=== PATIENT | male | born 1945 | race Caucasian/White ===

== ENCOUNTER 2019-06-30 15:45 | Inpatient (IN) ==
--- NOTE | 2019-06-30 17:42 | Emergency Department Note ---
Skin/Abscess/FB HPI - General Chief complaint: Skin/Abscess/Foreign Body Stated complaint: infected diabetic foot ulcer Time Seen by Provider: 06/30/19 16:44 Source: patient Mode of arrival: ambulatory Limitations: no limitations - History of Present Illness HPI Narrative: This patient has a large ulcer on his right foot and Dr. mina choi would like him admitted to the hospital so he can take him to the operating room for further debridement. Patient has no other specific complaints. - Related Data Home Medications Medication Instructions Recorded Confirmed atorvastatin 20 mg tablet 20 mg PO .COMPLEX 02/08/16 06/30/19 blood sugar diagnostic 1 dose .ROUTE .MEDSUPPLY 02/08/16 06/30/19 apixaban 2.5 mg tablet 2.5 mg PO BID 30 Days #60 tab 02/15/17 06/30/19 Mv-Mn/FA/D3/Lycopene/Lut/Coq10 1 each PO DAILY 07/18/17 06/30/19 [Daily Multivitamin Capsule] Vitamin B Complex [Super B-50 1 each PO DAILY 07/18/17 06/30/19 Complex] metoprolol tartrate 100 mg tablet 100 mg PO BID tab 05/01/19 06/30/19 Aspirin [Adult Low Dose Aspirin EC] 81 mg PO DAILY 06/30/19 06/30/19 Benzonatate 200 mg PO TID 06/30/19 06/30/19 Cyanocobalamin (Vitamin B-12) 50 mcg PO DAILY 06/30/19 06/30/19 [Vitamin B-12] Pantoprazole Sodium [Protonix] 20 mg PO DAILY 06/30/19 06/30/19 Previous Rx's Medication Instructions Recorded glipizide 10 mg tablet 10 mg PO QDAY #30 tab 07/10/18 furosemide 20 mg tablet See Rx Instructions .ROUTE 01/24/19 .COMPLEX #180 tab Allergies Allergy/AdvReac Type Severity Reaction Status Date / Time No Known Drug Allergies Allergy Verified 06/30/19 15:49 Review of Systems All systems ED: reviewed and negative except as stated. 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) Mitral valve stenosis and regurgitation (Chronic) Chronic combined systolic and diastolic CHF, NYHA class 2 (Chronic) Anemia due to stage 5 chronic kidney disease treated with darbepoetin (Chronic) CKD stage G5/A3, GFR <15 and albumin creatinine ratio >300 mg/g (Chronic) CKD stage G4/A3, GFR 15-29 and albumin creatinine ratio >300 mg/g (Chronic) Lung nodule (Chronic) Aspiration into airway (Chronic) Pharyngeal dysphagia (Chronic) GERD (gastroesophageal reflux disease) (Chronic) Chronic cough (Resolved) Anemia in stage 4 chronic kidney disease (Chronic) Secondary hyperparathyroidism of renal origin (Chronic) Numbness (Chronic) Change in nail appearance (Chronic) Adenomatous colon polyp (Chronic) TIA (transient ischemic attack) (Chronic) Shingles (Chronic) FDC (current) use of anticoagulants (Chronic) History of bleeding ulcers (Chronic) Hepatocellular carcinoma (Chronic) Mitral stenosis (Chronic) AV block, 1st degree (Chronic) Ventricular bigeminy (Chronic) Bradycardia (Chronic) Coronary artery disease (Chronic) Severe obesity (Chronic) Cirrhosis (Chronic) Chronic atrial fibrillation (Chronic) Diabetic foot ulcer (Chronic) Hammer toe of right foot (Chronic) Hammer toe of left foot (Chronic) Ridged nails (Chronic) Changes in skin texture (Chronic) Edema, unspecified (Chronic) Chronic ulcer of great toe of right foot with necrosis of bone (Chronic) Type 2 diabetes mellitus with foot ulcer (Chronic) PAD (peripheral artery disease) (Chronic) Personal history of nicotine dependence (Chronic) FDC (current) use of oral hypoglycemic drugs (Chronic) Type 2 diabetes mellitus with diabetic peripheral angiopathy without gangrene (Chronic) Corns and callosities (Chronic) Tinea unguium (Chronic) Obese (Chronic) Ambulates with cane (Chronic) Bruising (Chronic) Intermittent claudication (Chronic) Dyspnea on exertion (Chronic) Loss of taste (Chronic) Myocardial infarction (Chronic) Hypertension (Chronic) Hypercholesterolemia (Chronic) Peripheral vascular disease (Chronic) Non-healing ulcer (Chronic) Osteomyelitis (Chronic) Numbness in feet (Chronic) Burning sensation of feet (Chronic) Paresthesia (Chronic) Muscle cramps (Chronic) Leg pain (Chronic) History of acute myocardial infarction (Chronic) Wound abscess (Chronic) Wound cellulitis (Chronic) Chronic kidney disease, stage 3 (Chronic) Preventative health care (Chronic) Diabetic peripheral neuropathy (Chronic) DM (diabetes mellitus), type 2, uncontrolled w/neurologic complication (Chronic) Diabetes mellitus with renal manifestation (Chronic) CKD stage 4 due to type 2 diabetes mellitus (Chronic) Diabetes mellitus with peripheral circulatory disorder (Chronic) Claudication (Chronic) Hypertensive CKD (chronic kidney disease) (Chronic) Paroxysmal atrial fibrillation (Chronic) Hyperlipidemia (Chronic) Severe obesity (Chronic) Nocturia (Chronic) Screening PSA (prostate specific antigen) (Chronic) History of tobacco use (Chronic) Dystrophic nail (Chronic) Onychomycosis (Chronic) Past Surgical History (Last Reviewed 06/05/19 @ 09:59 by Tori Bravo RN) History of surgery (Acute) History of amputation of toe (Chronic) History of bilateral cataract extraction (Chronic) History of colonoscopy (Chronic 05/17/10) History of coronary artery bypass graft (Chronic) History of detached retina repair (Chronic) History of open heart surgery (Chronic ~1980) History of oral surgery (Chronic) History of tonsillectomy (Chronic) Family History (Last Reviewed 06/05/19 @ 09:59 by Tori Bravo RN) Mother Heart disease Kidney disease COPD (chronic obstructive pulmonary disease) Father Diabetes Medical history: Reports: DM, other Surgical history ED: Reports: non-contributory - Social History smoking status: Former smoker Physical Exam Patient's right lower lateral foot shows a large ulcer. Limitations: no limitations General appearance: alert Head: atraumatic Eye: Present: normal appearance ENT: Present: normal exam Neck: Present: normal inspection Chest: Present: normal inspection Respiratory: Present: normal lung sounds bilaterally Cardiovascular: Present: regular rate, normal rhythm, normal heart sounds Rectal: Absent: deferred Neurological: Present: alert Psychiatric: Present: normal affect Skin: Present: warm, dry Course Vital Signs Temperature 96.8 F L 06/30/19 15:46 Pulse Rate 81 06/30/19 15:46 Respiratory Rate 20 06/30/19 15:46 Blood Pressure 131/75 06/30/19 15:46 Pulse Oximetry (%) 99 06/30/19 15:46 Temperature 96.8 F L 06/30/19 15:46 Pulse Rate 81 06/30/19 15:46 Respiratory Rate 20 06/30/19 15:46 Blood Pressure 131/75 06/30/19 15:46 Pulse Oximetry (%) 99 06/30/19 15:46 Skin/Abscess/Foreign Body - MDM Narrative Medical decision making narrative: I discussed case with Dr. Lenz and Dr. mina choi and the patient will be admitted to the hospital. - Lab Data Lab results reviewed: Yes I reviewed the patient's lab results. Result diagrams: 06/30/19 15:33 06/30/19 15:33 Lab Results 06/30/19 06/30/19 Range/Units 15:33 15:33 WBC 10.0 (4.50-11.00) K/mcL RBC 3.35 L (4.63-6.08) M/mcL Hgb 10.5 L (13.7-17.5) g/dL Hct 31.4 L (40.1-51.0) % MCV 93.7 (80.0-100.0) fL MCH 31.3 (26.0-34.0) pg MCHC 33.4 (31.0-36.0) g/dL RDW 13.6 (11.5-14.5) % Plt Count 324 (140-440) K/mcL MPV 9.7 (7.4-10.4) fL Gran % 80.8 H (38.0-78.0) % Lymph % (Auto) 6.5 L (15.5-49.0) % [place] % (Auto) 9.7 (1.0-12.0) % Eos % (Auto) 2.5 (0.0-7.0) % Baso % (Auto) 0.5 (0.0-2.0) % Gran # 8.11 H (1.80-8.00) K/mcL Lymph # (Auto) 0.65 L (1.50-4.80) K/mcL [place] # (Auto) 0.97 H (0.10-0.90) K/mcL Eos # (Auto) 0.25 (0.00-0.70) K/mcL Baso # (Auto) 0.05 (0.00-0.30) K/mcL Sodium 134 (133-145) mmol/L Potassium 4.2 (3.3-5.1) mmol/L Chloride 104 (96-108) mmol/L Carbon Dioxide 15 L (22-30) mmol/L Anion Gap 15.0 (8-16) BUN 97 H (8-23) mg/dl Creatinine 4.8 H (0.7-1.2) mg/dl GFR Calculation 11 Glucose 124 H (70-105) mg/dL Calcium 8.8 (8.6-10.4) mg/dl Total Bilirubin 0.6 (0.0-1.0) mg/dL AST 41 H (0-37) U/l ALT 27 (0-40) U/l Alkaline Phosphatase 169 H (39-117) U/L Total Protein 7.8 (5.9-8.4) gm/dL Albumin 3.5 (3.2-5.2) gm/dL Globulin 4.3 H (2.2-3.7) gm/dL Albumin/Globulin Ratio 0.8 L (1.0-2.3) Disposition 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) Referrals: Laura Walton MD [Primary Care Provider] - Time of Disposition: 19:33
[2019-06-30] MEDS: LACTATED RINGERS 1,000 ML IV SCH (17:51)
[2019-06-30 18:31] LABS: Basophils # (Auto) 0.05 K/mcL (0.00-0.30); Basophils % (Auto) 0.5 % (0.0-2.0); Eosinophils # (Auto) 0.25 K/mcL (0.00-0.70); Eosinophils % (Auto) 2.5 % (0.0-7.0); Granulocytes % (Auto) 80.8 % (38.0-78.0); Hematocrit 31.4 % (40.1-51.0); Hemoglobin 10.5 g/dL (13.7-17.5); Lymphocytes # (Auto) 0.65 K/mcL (1.50-4.80); Lymphocytes % (Auto) 6.5 % (15.5-49.0); Mean Cell Volume 93.7 fL (80.0-100.0); Mean Corpuscular HGB Conc 33.4 g/dL (31.0-36.0); Mean Platelet Volume 9.7 fL (7.4-10.4); Monocytes # (Auto) 0.97 K/mcL (0.10-0.90); Monocytes % (Auto) 9.7 % (1.0-12.0); Platelet Count 324 K/mcL (140-440); RBC 3.35 M/mcL (4.63-6.08); Red Cell Distribution Width 13.6 % (11.5-14.5)
[2019-06-30 18:54] LABS: ALT/SGPT 27 U/l (0-40); AST/SGOT 41 U/l (0-37); Albumin 3.5 gm/dL (3.2-5.2); Albumin/Globulin Ratio 0.8 (1.0-2.3); Alkaline Phosphatase 169 U/L (39-117); Bilirubin,Total 0.6 mg/dL (0.0-1.0); Blood Urea Nitrogen 97 mg/dl (8-23); Calcium 8.8 mg/dl (8.6-10.4); Carbon Dioxide 15 mmol/L (22-30); Chloride 104 mmol/L (96-108); Globulin 4.3 gm/dL (2.2-3.7); Glomerular Filtration Rate 11; Glucose 124 mg/dL (70-105)
[2019-06-30] MEDS ORDERED: PIPERACILLIN SODIUM/TAZOBACTAM 3.375 GM in DEXTROSE 5% IN WATER 50 ML IV ONE (19:32)
[2019-06-30] MEDS ORDERED: VANCOMYCIN 1,500 MG in 0.9 % SODIUM CHLORIDE 500 ML IV ONE (19:32)
--- NOTE | 2019-06-30 19:44 | Internal Med History&Physical ---
Medical - H&P: [facility] Patient information: Note initiated : 06/30/19 at 7:35 pm Service Date, if different from initiated Date: [] Patient: Carlton Cerda 73 y/o M admitted on for infected diabetic foot ulcer. Chief Complaint: [] Chief complaint: Right foot History of present illness: Mr. Cerda is a 73 year old M with a history of CABG/CAD/CKD stage IV and diabetic neuropathy who presents to the ER after being directed from wound care office with worsening right foot cellulitis/ulcer and need for operative intervention. Initial work-up in the ER did not show any evidence of sepsis however in the setting of worsening cellulitis/expanding ulceration hospitalist service was consulted for admission and consultation with wound care physician Dr. Casanova At the time evaluation patient is accompanied with his Mary. He was able to answer most of the questions. He denies shaking chills, fever, worsening pain but endorses to worsening wound over the last few days. He denies recent trauma. His blood sugars have been around 200. He denies missing medications. Review of systems A 10 point review system was performed and is negative except for discussed above Medical - H&P: PMH Medical history: CKD stage G4/A3, GFR 15-29 and albumin creatinine ratio >300 mg/g (Chronic) Doubt this is diabetic due to good hemoglobin A1c values over the years Could be secondary membranous GN in association with his adenocarcinoma of the liver And then any of the other common causes of nephrotic range proteinuria including amyloidosis, decompensated congestive heart failure, RPGN etc. use of apixaban as an anticoagulant makes renal biopsy difficult logistically. Lung nodule (Chronic) Aspiration into airway (Chronic) Pharyngeal dysphagia (Chronic) GERD (gastroesophageal reflux disease) (Chronic) Chronic cough (Resolved) Anemia in stage 4 chronic kidney disease (Chronic) Serial hemoglobin and hematocrit Iron studies Start JULIAN therapy when and if hemoglobin less than 10 given his cardiac status Secondary hyperparathyroidism of renal origin (Chronic) Monitor PTH on calcitriol 0.25 ug per day Numbness (Chronic) Change in nail appearance (Chronic) Adenomatous colon polyp (Chronic) TIA (transient ischemic attack) (Chronic) Shingles (Chronic) medical terminologist (current) use of anticoagulants (Chronic) History of bleeding ulcers (Chronic) Hepatocellular carcinoma (Chronic) Mitral stenosis (Chronic) AV block, 1st degree (Chronic) Ventricular bigeminy (Chronic) Bradycardia (Chronic) Coronary artery disease (Chronic) Severe obesity (Chronic) Cirrhosis (Chronic) Chronic atrial fibrillation (Chronic) Diabetic foot ulcer (Chronic) Right Hammer toe of right foot (Chronic) Hammer toe of left foot (Chronic) Ridged nails (Chronic) Changes in skin texture (Chronic) Edema, unspecified (Chronic) Chronic ulcer of great toe of right foot with necrosis of bone (Chronic) Type 2 diabetes mellitus with foot ulcer (Chronic) PAD (peripheral artery disease) (Chronic) Personal history of nicotine dependence (Chronic) intermediate (current) use of oral hypoglycemic drugs (Chronic) Type 2 diabetes mellitus with diabetic peripheral angiopathy without gangrene (Chronic) Corns and callosities (Chronic) Tinea unguium (Chronic) Obese (Chronic) Ambulates with cane (Chronic) Bruising (Chronic) Intermittent claudication (Chronic) Dyspnea on exertion (Chronic) Loss of taste (Chronic) Myocardial infarction (Chronic) Hypertension (Chronic) Hypercholesterolemia (Chronic) Peripheral vascular disease (Chronic) Non-healing ulcer (Chronic) Osteomyelitis (Chronic) Right 3rd Toe Numbness in feet (Chronic) sometimes Burning sensation of feet (Chronic) occasionally Paresthesia (Chronic) Muscle cramps (Chronic) Leg pain (Chronic) History of acute myocardial infarction (Chronic) Wound abscess (Chronic) Wound cellulitis (Chronic) Chronic kidney disease, stage 3 (Chronic) Preventative health care (Chronic) Diabetic peripheral neuropathy (Chronic) DM (diabetes mellitus), type 2, uncontrolled w/neurologic complication (Chronic) and vascular complications Diabetes mellitus with renal manifestation (Chronic) CKD stage 4 due to type 2 diabetes mellitus (Chronic) Slow progression to a GFR of 11 cc/min. He has no symptoms and at this point did not want to discuss renal replacement therapy I suspect he has a year to go before we have to institute dialysis so I did not push the issue Diabetes mellitus with peripheral circulatory disorder (Chronic) Claudication (Chronic) Hypertensive CKD (chronic kidney disease) (Chronic) Paroxysmal atrial fibrillation (Chronic) Hyperlipidemia (Chronic) Severe obesity (Chronic) Nocturia (Chronic) Screening PSA (prostate specific antigen) (Chronic) History of tobacco use (Chronic) Dystrophic nail (Chronic) Onychomycosis (Chronic) Surgical History History of surgery (Acute) per patient liver cancer 2017 History of amputation of toe (Chronic) Right 2nd Toe History of bilateral cataract extraction (Chronic) History of colonoscopy (Chronic 05/17/10) History of coronary artery bypass graft (Chronic) History of detached retina repair (Chronic) History of open heart surgery (Chronic ~1980) Bypass History of oral surgery (Chronic) History of tonsillectomy (Chronic) Family History Mother Heart disease Kidney disease COPD (chronic obstructive pulmonary disease) Father Diabetes Social History marital status: smoking status: Former smoker smoking status start date: 04/16/06 smoking status stop date: 04/16/78 alcohol intake frequency: a few times a week substance use type: does not use Medical - H&P: Meds Home Medications Medication Instructions Recorded Confirmed Type atorvastatin 20 mg tablet 20 mg PO .COMPLEX 02/08/16 06/30/19 History blood sugar diagnostic 1 dose .ROUTE .MEDSUPPLY 02/08/16 06/30/19 History apixaban 2.5 mg tablet 2.5 mg PO BID 30 Days #60 tab 02/15/17 06/30/19 History Mv-Mn/FA/D3/Lycopene/Lut/Coq10 1 each PO DAILY 07/18/17 06/30/19 History [Daily Multivitamin Capsule] Vitamin B Complex [Super B-50 1 each PO DAILY 07/18/17 06/30/19 History Complex] glipizide 10 mg tablet 10 mg PO QDAY #30 tab 07/10/18 06/30/19 Rx furosemide 20 mg tablet See Rx Instructions .ROUTE 01/24/19 06/30/19 Rx .COMPLEX #180 tab metoprolol tartrate 100 mg tablet 100 mg PO BID tab 05/01/19 06/30/19 History Aspirin [Adult Low Dose Aspirin EC] 81 mg PO DAILY 06/30/19 06/30/19 History Benzonatate 200 mg PO TID 06/30/19 06/30/19 History Cyanocobalamin (Vitamin B-12) 50 mcg PO DAILY 06/30/19 06/30/19 History [Vitamin B-12] Pantoprazole Sodium [Protonix] 20 mg PO DAILY 06/30/19 06/30/19 History Allergies Allergy/AdvReac Type Severity Reaction Status Date / Time No Known Drug Allergies Allergy Verified 06/30/19 15:49 Medical - H&P: Exam - Constitutional Vitals: Temp Pulse Resp BP Pulse Ox 96.8 F L 81 20 131/75 99 06/30/19 15:46 06/30/19 15:46 06/30/19 15:46 06/30/19 15:46 06/30/19 15:46 General appearance: obese Exam: Alert oriented Head normocephalic Oral cavity dry No ear nose discharge Neck no hepatopathy S1-S2 irregular Diminished breath sounds bases Abdomen soft nontender Lower extremity no cyanosis clubbing, right foot ulceration with extensive skin and soft tissue necrosis involving wound base extending to toes. Pictures documented in chart Psych alert cooperative Neuro nonfocal Medical - H&P: Reslt - Labs CBC & Chem 7: 07/01/19 05:45 07/01/19 05:45 Labs: Short CBC 06/30/19 Range/Units 15:33 WBC 10.0 (4.50-11.00) K/mcL Hgb 10.5 L (13.7-17.5) g/dL Hct 31.4 L (40.1-51.0) % Plt Count 324 (140-440) K/mcL BMP 06/30/19 15:33 Sodium 134 Potassium 4.2 Chloride 104 Carbon Dioxide 15 L BUN 97 H Creatinine 4.8 H Glucose 124 H Calcium 8.8 Liver Function 06/30/19 Range/Units 15:33 Total Bilirubin 0.6 (0.0-1.0) mg/dL AST 41 H (0-37) U/l ALT 27 (0-40) U/l Alkaline Phosphatase 169 H (39-117) U/L Albumin 3.5 (3.2-5.2) gm/dL Medical - H&P: A/P (1) Diabetic foot ulcer Problem details: Right Current visit: Yes Status: Chronic * Diabetic foot ulcer with necrosis and cellulitis-wound care consulted. Initiate broad antibiotic coverage. Further work-up for vascular insufficiency as per wound care physician. Will likely undergo debridement in the next 48 hours. 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 * Preoperative risk evaluation-based on [employer] [place] [employer] risk stratification patient would be a very high risk operative candidate with mortality of approximately 20% in the setting of history of prior CAD/CABG/stage IV CKD and underlying diabetes. This was discussed with Carlton who understands the risk and willing to proceed with surgery. Surgery and anesthesia specific risks will be addressed by individual care providers * Stage IV CKD-patient recently discontinued renal replacement treatment. Managed by Dr. High nephrology * History of diabetes mellitus continue basal prandial insulin/CC diet * Chronic atrial fibrillation currently rate controlled. On anticoagulation for CVA prophylaxis. * Diabetic neuropathy/peripheral vascular disease with recurrent diabetic foot ulceration. * Hyperlipidemia on statin * DNR Plan * Inpatient admission * Wound care physician consult * Broad antibiotic coverage * Wound Cultures * Monitor renal function
--- NOTE | 2019-06-30 20:03 | General Surgery Consult Note ---
History of Present Illness Patient information: Note initiated : 06/30/19 at 8:00 pm Service Date, if different from initiated Date: [] Patient: Carlton Cerda 73 y/o M admitted on for infected diabetic foot ulcer. Chief Complaint: [] Consult date: 06/30/19 Requesting physician: Nish Kahn (Sepsis, Infected DFU Rt foot) History of present illness: 73/M Admitted via ER with CSSSI Right foot DFU [place] 4, under 5th toe. Patient is established with wound care services and is well known to the staff at [facility]. High risk patient with multiple comorbidities, Will need OR debridement after INITIAL work up, IV antibiotics and TESS study along with physical therapy consult and counseling to patient for NWB and off loading ( Roll about scooter versus wheelchair ) of RIGHT foot. Patient was seen in wound care clinic this morning. There was deterioration of his wound and interval change with extensive skin and soft tissue necrosis of the wound base and spread to surrounding toes. He was referred to ER and later admitted to Medr floor for preoperative work up and clearance. Medications and Allergies Home Medications Medication Instructions Recorded Confirmed Type atorvastatin 20 mg tablet 20 mg PO .COMPLEX 02/08/16 06/30/19 History blood sugar diagnostic 1 dose .ROUTE .MEDSUPPLY 02/08/16 06/30/19 History apixaban 2.5 mg tablet 2.5 mg PO BID 30 Days #60 tab 02/15/17 06/30/19 History Mv-Mn/FA/D3/Lycopene/Lut/Coq10 1 each PO DAILY 07/18/17 06/30/19 History [Daily Multivitamin Capsule] Vitamin B Complex [Super B-50 1 each PO DAILY 07/18/17 06/30/19 History Complex] glipizide 10 mg tablet 10 mg PO QDAY #30 tab 07/10/18 06/30/19 Rx furosemide 20 mg tablet See Rx Instructions .ROUTE 01/24/19 06/30/19 Rx .COMPLEX #180 tab metoprolol tartrate 100 mg tablet 100 mg PO BID tab 05/01/19 06/30/19 History Aspirin [Adult Low Dose Aspirin EC] 81 mg PO DAILY 06/30/19 06/30/19 History Benzonatate 200 mg PO TID 06/30/19 06/30/19 History Cyanocobalamin (Vitamin B-12) 50 mcg PO DAILY 06/30/19 06/30/19 History [Vitamin B-12] Pantoprazole Sodium [Protonix] 20 mg PO DAILY 06/30/19 06/30/19 History Allergies Allergy/AdvReac Type Severity Reaction Status Date / Time No Known Drug Allergies Allergy Verified 06/30/19 15:49 Exam Temp Pulse Resp BP Pulse Ox 96.8 F L 81 20 131/75 99 06/30/19 15:46 06/30/19 15:46 06/30/19 15:46 06/30/19 15:46 06/30/19 15:46 - General physical appearance well developed, well nourished, no pain - Eyes PERRL - ENT normal pinna, normal mucosa, no congestion - Head Head exam IM: Present: atraumatic, normocephalic - Neck no masses, trachea midline, no venous distension - Cardiovascular Cardiovascular exam IM: Present: normal rate and rhythm - Respiratory normal expansion, clear to auscultation - Abdomen Abdomen: Present: soft, non tender, organomegaly - Integumentary Present: other (Infected DFU Stage 4 under RIGHT 5th MPJ. Extensive soft tissue necrosis and extension to interdigial spaces of adjacent toes. ) - Neurologic Present: other (Peripheral neuropathy) - Musculoskeletal Present: other (DFU and peripheral neuropathy both feet. OFF loading of RIGHT foot. NWB) - Psychiatric Present: oriented to time (Anxious), oriented to person, oriented to place, speech is normal, other Results - Labs 07/01/19 05:45 06/30/19 15:33 Abnormal lab results 06/30/19 06/30/19 Range/Units 15:33 15:33 RBC 3.35 L (4.63-6.08) M/mcL Hgb 10.5 L (13.7-17.5) g/dL Hct 31.4 L (40.1-51.0) % Gran % 80.8 H (38.0-78.0) % Lymph % (Auto) 6.5 L (15.5-49.0) % Gran # 8.11 H (1.80-8.00) K/mcL Lymph # (Auto) 0.65 L (1.50-4.80) K/mcL [place] # (Auto) 0.97 H (0.10-0.90) K/mcL Carbon Dioxide 15 L (22-30) mmol/L BUN 97 H (8-23) mg/dl Creatinine 4.8 H (0.7-1.2) mg/dl Glucose 124 H (70-105) mg/dL AST 41 H (0-37) U/l Alkaline Phosphatase 169 H (39-117) U/L Globulin 4.3 H (2.2-3.7) gm/dL Albumin/Globulin Ratio 0.8 L (1.0-2.3) Diabetes panel 06/30/19 Range/Units 15:33 Sodium 134 (133-145) mmol/L Potassium 4.2 (3.3-5.1) mmol/L Chloride 104 (96-108) mmol/L Carbon Dioxide 15 L (22-30) mmol/L BUN 97 H (8-23) mg/dl Creatinine 4.8 H (0.7-1.2) mg/dl Glucose 124 H (70-105) mg/dL Calcium 8.8 (8.6-10.4) mg/dl AST 41 H (0-37) U/l ALT 27 (0-40) U/l Alkaline Phosphatase 169 H (39-117) U/L Total Protein 7.8 (5.9-8.4) gm/dL Albumin 3.5 (3.2-5.2) gm/dL Calcium panel 06/30/19 Range/Units 15:33 Calcium 8.8 (8.6-10.4) mg/dl Albumin 3.5 (3.2-5.2) gm/dL Pituitary panel 06/30/19 Range/Units 15:33 Sodium 134 (133-145) mmol/L Potassium 4.2 (3.3-5.1) mmol/L Chloride 104 (96-108) mmol/L Carbon Dioxide 15 L (22-30) mmol/L BUN 97 H (8-23) mg/dl Creatinine 4.8 H (0.7-1.2) mg/dl Glucose 124 H (70-105) mg/dL Calcium 8.8 (8.6-10.4) mg/dl Adrenal panel 06/30/19 Range/Units 15:33 Sodium 134 (133-145) mmol/L Potassium 4.2 (3.3-5.1) mmol/L Chloride 104 (96-108) mmol/L Carbon Dioxide 15 L (22-30) mmol/L BUN 97 H (8-23) mg/dl Creatinine 4.8 H (0.7-1.2) mg/dl Glucose 124 H (70-105) mg/dL Calcium 8.8 (8.6-10.4) mg/dl Total Bilirubin 0.6 (0.0-1.0) mg/dL AST 41 H (0-37) U/l ALT 27 (0-40) U/l Alkaline Phosphatase 169 H (39-117) U/L Total Protein 7.8 (5.9-8.4) gm/dL Albumin 3.5 (3.2-5.2) gm/dL All other labs normal. Assessment and Plan (1) Sepsis Status: Suspected Priority: Medium Comment: Patient will need OR debridement and pulse lavage irrigation of wound and unroofing of loculcated pockets . Qualifiers: Sepsis type: sepsis due to unspecified organism Sepsis acute organ dysfunction status: without acute organ dysfunction Qualified Code(s): A41.9 - Sepsis, unspecified organism (2) Cellulitis Status: Suspected Priority: Medium Qualifiers: Site of cellulitis: extremity Site of cellulitis of extremity: lower extremity Laterality: right Qualified Code(s): L03.115 - Cellulitis of right lower limb (3) Diabetic foot ulcer Status: Chronic Priority: Medium Comment: Right Qualifiers: Diabetic foot ulcer location: toe Diabetes mellitus type: type 2 Laterality: right Non-pressure ulcer stage: with bone involvement without evidence of necrosis Qualified Code(s): E11.621 - Type 2 diabetes mellitus with foot ulcer; L97.516 - Non-pressure chronic ulcer of other part of right f oot with bone involvement without evidence of necrosis (4) AV block, 1st degree Status: Chronic Priority: Medium (5) Anemia due to stage 5 chronic kidney disease treated with darbepoetin Status: Chronic Priority: Medium Comment: Aranesp q 2-4 weeks if HgB <10 gm/dl. Needs O2 carrying capacity to be maximized
[2019-06-30] MEDS ORDERED: ONDANSETRON 4 MG ODT TABLET SL PRN (21:51)
[2019-06-30] MEDS ORDERED: MELATONIN 3 MG TABLET PO PRN (21:51)
[2019-06-30] MEDS ORDERED: ACETAMINOPHEN 650 MG/65 ML BOTTLE IV PRN (21:51)
[2019-06-30] MEDS ORDERED: VANCOMYCIN PER PHARMACY IV SCH (21:51)
[2019-06-30] MEDS ORDERED: BISACODYL 10 MG SUPP.RECT PR PRN (21:51)
[2019-06-30] MEDS ORDERED: ONDANSETRON 4 MG/2 ML VIAL IV PRN (21:51)
[2019-06-30] MEDS ORDERED: DEXTROSE 50% 50 ML VIAL IV PRN (21:51)
[2019-06-30] MEDS ORDERED: ACETAMINOPHEN 325 MG TABLET PO PRN (21:51)
[2019-06-30] MEDS ORDERED: DEXTROSE 31 GM ORAL.SUSP PO PRN (21:51)
[2019-06-30] MEDS ORDERED: MAGNESIUM SULFATE 2 GM/50 ML BAG IV PRN (21:51)
[2019-06-30] MEDS ORDERED: POLYETHYLENE GLYCOL 3350 17 GM PACKET PO PRN (21:51)
[2019-06-30] MEDS ORDERED: BLOOD SUGAR DIAGNOSTIC SCH (21:51)
[2019-07-01] MEDS: METOPROLOL TARTRATE 50 MG TABLET PO SCH ×3 (02:11→20:13)
[2019-07-01] MEDS: ATORVASTATIN 20 MG TABLET PO SCH ×2 (02:12→20:13)
[2019-07-01] MEDS: 0.9 % SODIUM CHLORIDE 10 ML SYRINGE IV SCH ×3 (02:13→20:15)
[2019-07-01] MEDS: DOCUSATE SODIUM 100 MG CAPSULE PO SCH ×3 (02:14→20:17)
[2019-07-01] MEDS: APIXABAN 2.5 MG TABLET PO SCH ×3 (02:16→20:14)
[2019-07-01] MEDS: INSULIN LISPRO 1 UNIT/0.01 ML UNIT SQ SCH ×5 (02:18→20:16)
[2019-07-01] MEDS: SENNOSIDES/DOCUSATE SODIUM 1 TAB TABLET PO SCH ×2 (02:19→20:18)
[2019-07-01 07:35] LABS: Hematocrit 28.9 % (40.1-51.0); Hemoglobin 9.7 g/dL (13.7-17.5); Mean Cell Volume 94.1 fL (80.0-100.0); Mean Corpuscular HGB Conc 33.6 g/dL (31.0-36.0); Mean Platelet Volume 9.7 fL (7.4-10.4); Platelet Count 291 K/mcL (140-440); RBC 3.07 M/mcL (4.63-6.08); Red Cell Distribution Width 13.6 % (11.5-14.5); WBC 9.2 K/mcL (4.50-11.00)
[2019-07-01] MEDS: PANTOPRAZOLE 40 MG TABLET PO SCH (07:47)
[2019-07-01] MEDS: PIPERACILLIN SODIUM/TAZOBACTAM 2.25 GM in DEXTROSE 5% IN WATER 50 ML IV SCH ×3 (07:50→20:12)
[2019-07-01] MEDS ORDERED: VANCOMYCIN 1,500 MG in 0.9 % SODIUM CHLORIDE 500 ML IV ONE (08:00)
[2019-07-01] MEDS: MULTIVIT,THER IRON,CA,FA & MIN 1 TABLET PO SCH (08:36)
[2019-07-01] MEDS: ASPIRIN 81 MG TAB.CHEW PO SCH (08:36)
--- NOTE | 2019-07-01 08:47 | General Surgery Progress Note ---
Subjective Patient reports: other (Patient seen with Ling RN, Wound Care Nurse. Alize had an uneventful night. ) Narrative: Note initiated : 07/01/19 at 8:44 am Service Date, if different from initiated Date: [] Patient: Carlton Cerda 73 y/o M admitted on 06/30/19 for infected diabetic foot ulcer. Chief Complaint: [] Objective Temp Pulse Resp BP Pulse Ox 97.8 F 66 18 137/74 98 07/01/19 08:00 07/01/19 08:00 07/01/19 08:00 07/01/19 08:00 07/01/19 08:00 AVSS No changes ABDIRAHMAN. - Additional Data Intake & Output - Last 24 hours: Intake & Output 06/29/19 06/30/19 07/01/19 07/02/19 05:59 05:59 05:59 05:59 Intake Total 617 Output Total 400 Balance 217 Weight 262 lb 8 oz - Labs 07/01/19 05:45 06/30/19 15:33 Diabetes panel 06/30/19 Range/Units 15:33 Sodium 134 (133-145) mmol/L Potassium 4.2 (3.3-5.1) mmol/L Chloride 104 (96-108) mmol/L Carbon Dioxide 15 L (22-30) mmol/L BUN 97 H (8-23) mg/dl Creatinine 4.8 H (0.7-1.2) mg/dl Glucose 124 H (70-105) mg/dL Calcium 8.8 (8.6-10.4) mg/dl AST 41 H (0-37) U/l ALT 27 (0-40) U/l Alkaline Phosphatase 169 H (39-117) U/L Total Protein 7.8 (5.9-8.4) gm/dL Albumin 3.5 (3.2-5.2) gm/dL Calcium panel 06/30/19 Range/Units 15:33 Calcium 8.8 (8.6-10.4) mg/dl Albumin 3.5 (3.2-5.2) gm/dL Pituitary panel 06/30/19 Range/Units 15:33 Sodium 134 (133-145) mmol/L Potassium 4.2 (3.3-5.1) mmol/L Chloride 104 (96-108) mmol/L Carbon Dioxide 15 L (22-30) mmol/L BUN 97 H (8-23) mg/dl Creatinine 4.8 H (0.7-1.2) mg/dl Glucose 124 H (70-105) mg/dL Calcium 8.8 (8.6-10.4) mg/dl Adrenal panel 06/30/19 Range/Units 15:33 Sodium 134 (133-145) mmol/L Potassium 4.2 (3.3-5.1) mmol/L Chloride 104 (96-108) mmol/L Carbon Dioxide 15 L (22-30) mmol/L BUN 97 H (8-23) mg/dl Creatinine 4.8 H (0.7-1.2) mg/dl Glucose 124 H (70-105) mg/dL Calcium 8.8 (8.6-10.4) mg/dl Total Bilirubin 0.6 (0.0-1.0) mg/dL AST 41 H (0-37) U/l ALT 27 (0-40) U/l Alkaline Phosphatase 169 H (39-117) U/L Total Protein 7.8 (5.9-8.4) gm/dL Albumin 3.5 (3.2-5.2) gm/dL Assessment and Plan (1) Sepsis Problem details: Patient will need OR debridement and pulse lavage irrigation of wound and unroofing of loculcated pockets . 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 Needs O2 carrying capacity to be maximized Status: Chronic Current Visit: No - Narrative A/P Narrative: Assessment: Infected DFU Stage 4, RIGHT foot 5th toe Plan: FOR OR debridement later this afternoon. Spoke with patient about plan of treatment. OFF loading and NWB Right foot. Roll about scooter Continuing wound care as out patient. PO antibiotics post discharge. - Time Spent With Patient Total time spent is greater than 50% in coordination of care (as documented) at patient's floor/unit and/or counseling patient: 15 - 24 minutes
[2019-07-01 08:56] LABS: ALT/SGPT 26 U/l (0-40); AST/SGOT 46 U/l (0-37); Albumin/Globulin Ratio 0.8 (1.0-2.3); Alkaline Phosphatase 157 U/L (39-117); Bilirubin,Total 0.5 mg/dL (0.0-1.0); Blood Urea Nitrogen 95 mg/dl (8-23); Calcium 8.6 mg/dl (8.6-10.4); Carbon Dioxide 14 mmol/L (22-30); Chloride 107 mmol/L (96-108); Glomerular Filtration Rate 12; Glucose 77 mg/dL (70-105); Lactate Dehydrogenase 197 U/L (94-250); Phosphorous 5.6 mg/dL (2.7-4.5); Triglycerides 116 mg/dl (<150); Uric Acid 6.9 mg/dL (2.5-8.0)
[2019-07-01 08:59] LABS: Eosinophils % (Manual) 6 % (0-7); Lymphocytes % 9 % (15-49); Monocytes % (Manual) 8 % (1-12); Platelet Estimate NORMAL (NORMAL); RBC Morphology NORMAL (NORMAL); Segmented Neutrophils % 77 % (38-78)
[2019-07-01 09:02] LABS: Bilirubin,Direct < 0.2 mg/dL (0.0-0.3)
[2019-07-01] MEDS ORDERED: GENTAMICIN SULFATE IRR SCH (09:45)
[2019-07-01] MEDS ORDERED: [UNRECOGNIZED DRUG - OTHER] IRR SCH (09:45)
[2019-07-01] MEDS ORDERED: CLINDAMYCIN IRR SCH (09:45)
[2019-07-01] MEDS ORDERED: BACITRACIN IRR SCH (09:45)
[2019-07-01] MEDS ORDERED: LOPERAMIDE 2 MG CAPSULE PO PRN (10:41)
--- NOTE | 2019-07-01 10:55 | Internal Med Progress Note ---
Medical - PN: Subj Patient information: Note initiated : 07/01/19 at 10:52 am Service Date, if different from initiated Date: [] Patient: Carlton Cerda 73 y/o M admitted on 06/30/19 for infected diabetic foot ulcer. Chief Complaint: [] Interval history: Mr. Cerda is a 73 year old M with a history of CABG/CAD/CKD stage IV and diabetic neuropathy who presents to the ER after being directed from wound care office with worsening right foot cellulitis/ulcer and need for operative intervention. Initial work-up in the ER did not show any evidence of sepsis however in the setting of worsening cellulitis/expanding ulceration hospitalist service was consulted for admission and consultation with wound care physician Dr. Casanova At the time evaluation patient is accompanied with his Mary. He was able to answer most of the questions. He denies shaking chills, fever, worsening pain but endorses to worsening wound over the last few days. He denies recent trauma. His blood sugars have been around 200. He denies missing medications. 06/30-patient doing well. Due for operative debridement by surgery today. Currently n.p.o. No overnight events. Ongoing antibiotic coverage. Wound cultures and blood cultures pending. No overnight fever chills. White count 9.2, hemoglobin 9.7, creatinine 4.6 - Constitutional Vitals: Vital Signs Temp Pulse Resp BP Pulse Ox 97.8 F 66 18 137/74 98 07/01/19 08:00 07/01/19 08:00 07/01/19 08:00 07/01/19 08:00 07/01/19 08:00 Period Temp Pulse Resp BP Sys/Matute Pulse Ox Last 24 Hr 96.8 F-97.8 F 66-88 12-20 127-157/65-80 98-100 Intake and Output 06/30/19 07/01/19 07/01/19 21:59 05:59 13:59 Intake Total 617 50 Output Total 400 Balance 617 -400 50 Weight 262 lb 8 oz Intake & Output: Intake & Output 06/30/19 07/01/19 07/01/19 21:59 05:59 13:59 Intake Total 617 50 Output Total 400 Balance 617 -400 50 Weight 262 lb 8 oz Intake: IV 617 50 Lactated Ringers 1,000 ml @ 250 617 mls/hr IV .Q4H [facility] Rx#: [id number] Zosyn 2.25 gm In Dextrose 5% in 50 Water 50 ml @ 100 mls/hr IV Q8H [facility] Rx#:[id number] Output: Void Amount 400 Other: Meal Nourishment/Supplement Percent of Meal Consumed 25% Feeding Ability Independent Independent Urine Appearance Clear Urine Color Bright Yellow Stool Size Small Stool Color Green Stool Consistency Watery # Voids 1 General appearance: morbidly obese Exam: Alert oriented Nonlabored breathing no anxiety Right foot covered in dressing Medical - PN: Obj Da - Labs CBC & Chem 7: 07/01/19 05:45 07/01/19 05:45 Labs: Abnormal Lab Results 07/01/19 07/01/19 06/30/19 05:45 05:45 15:33 RBC 3.07 L Hgb 9.7 L Hct 28.9 L Gran % Lymph % (Auto) Gran # Lymph # (Auto) [place] # (Auto) Lymphocytes % 9 L Carbon Dioxide 14 L 15 L Anion Gap 17.0 H BUN 95 H 97 H Creatinine 4.6 H 4.8 H Glucose 124 H Phosphorus 5.6 H GGT 138 H AST 46 H 41 H Alkaline Phosphatase 157 H 169 H Albumin 3.0 L Globulin 4.0 H 4.3 H Albumin/Globulin Ratio 0.8 L 0.8 L 06/30/19 15:33 RBC 3.35 L Hgb 10.5 L Hct 31.4 L Gran % 80.8 H Lymph % (Auto) 6.5 L Gran # 8.11 H Lymph # (Auto) 0.65 L [place] # (Auto) 0.97 H Lymphocytes % Carbon Dioxide Anion Gap BUN Creatinine Glucose Phosphorus GGT AST Alkaline Phosphatase Albumin Globulin Albumin/Globulin Ratio Meds: Medications Acetaminophen (Tylenol) 650 mg PO Q4-6HP PRN; Protocol PRN Reason: Per Pain Protocol/Fever > 101 Apixaban (Eliquis) 2.5 mg PO BID [facility] Last Admin: 07/01/19 08:35 Dose: 2.5 mg Documented by: Aspirin (Aspirin) 81 mg PO DAILY [facility] Last Admin: 07/01/19 08:36 Dose: 81 mg Documented by: Atorvastatin Calcium (Lipitor) 20 mg PO HS [facility] Last Admin: 07/01/19 02:12 Dose: Not Given Documented by: Bisacodyl (Dulcolax) 10 mg AR Q2-3DAYS PRN PRN Reason: Constipation Dextrose (Dextrose 50%) 0 ml IV UD PRN PRN Reason: Hypoglycemia Diagnostic Test (Pha) (Accu-Chek) 1 each FS ACHS [facility] Last Admin: 07/01/19 07:50 Dose: 1 each Documented by: Docusate Sodium (Colace) 100 mg PO BID [facility] Last Admin: 07/01/19 10:26 Dose: Not Given Documented by: Glucose (Insta-Glucose) 15 gm PO PRN PRN PRN Reason: Hypoglycemia Acetaminophen (Ofirmev) 650 mg in 65 mls @ 130 mls/hr IV Q6HP PRN; Protocol PRN Reason: Per Pain Protocol/Fever > 101 Magnesium Sulfate (Magnesium Sulfate) 2 gm in 50 mls @ 50 mls/hr IV UD PRN PRN Reason: MG = or < 1.7 Piperacillin Sod/Tazobactam (Sod 2.25 gm/ Dextrose) 50 mls @ 100 mls/hr IV Q8H [facility]; Protocol Last Infusion: 07/01/19 08:20 Dose: Infused Documented by: Clindamycin Phosphate 600 mg/Gentamicin Sulfate 80 mg/Bacitracin 50,000 unit/ Sodium Chloride 3,006 mls @ 0 mls/hr IRR ONCE [facility] Stop: 07/01/19 17:00 Insulin Human Lispro (Humalog) 0 unit SQ [facility]; Protocol Last Admin: 07/01/19 07:50 Dose: Not Given Documented by: Iron Carb/Multivit/[place]/Folic Acid (Multivitamin W/Minerals) 1 tab PO DAILY [facility] Last Admin: 07/01/19 08:36 Dose: 1 tab Documented by: Loperamide HCl (Imodium) 2 mg PO PRN PRN PRN Reason: Diarrhea Melatonin (Melatonin 3mg Tablet) 3 mg PO HSP PRN PRN Reason: Insomnia Metoprolol Tartrate (Lopressor) 100 mg PO BID [facility] Last Admin: 07/01/19 08:35 Dose: 100 mg Documented by: Ondansetron HCl (Zofran Odt) 4 mg SL Q4-6HP PRN; Protocol PRN Reason: Nausea And Vomiting Ondansetron HCl (Zofran) 4 mg IV Q4-6HP PRN; Protocol PRN Reason: Nausea And Vomiting Pantoprazole Sodium (Protonix) 40 mg PO QAMAC [facility] Last Admin: 07/01/19 07:47 Dose: 40 mg Documented by: Polyethylene Glycol (Miralax) 17 gm PO DAILYP PRN PRN Reason: Constipation Senna/Docusate Sodium (Senna Plus Tablet) 1 tab PO HS [facility] Last Admin: 07/01/19 02:19 Dose: Not Given Documented by: Sodium Chloride (Saline Flush) 10 ml IV Q8 [facility] Last Admin: 07/01/19 02:13 Dose: 10 ml Documented by: Vancomycin HCl (Vancomycin Per Pharmacy) 1 order IV UD [facility]; Protocol Medical - PN: A/P - Time Spent With Patient Total time spent is greater than 50% in coordination of care (as documented) at patient's floor/unit and/or counseling patient: 25 - 35 minutes (1) Diabetic foot ulcer Problem details: Right Status: Chronic Assessment and plan: * Diabetic right foot ulcer with necrosis and cellulitis-wound care consulted. Continue broad antibiotic coverage. Cultures obtained. Will undergo debridement later today hours. Patient remains a high risk operative candidate based on history of CAD/CABG/diabetes/CKD stage IV recently on HEAD OF MAINTENANCE. * Preoperative risk evaluation-based on [employer] [place] risk stratification patient would be a very high risk operative candidate with mortality of approximately 20% in the setting of history of prior CAD/CABG/stage IV CKD and underlying diabetes. This was discussed with Carlton who understands the risk and willing to proceed with surgery. Surgery and anesthesia specific risks will be addressed by individual care providers * Stage IV CKD-patient recently discontinued HEAD OF MAINTENANCE. Managed by Dr. High nephrology as outpatient * History of diabetes mellitus continue basal prandial insulin/CC diet * Chronic atrial fibrillation currently rate controlled. On anticoagulation for CVA prophylaxis. * Diabetic neuropathy/peripheral vascular disease with recurrent diabetic foot ulceration. * Hyperlipidemia on statin * DNR Plan * Review postprocedure * Pre-existing medical condition management on home medications as above * Continue broad antibiotic coverage and de-escalate based on wound cultures * Monitor renal function * PT OT nutrition support Current Visit: Yes Medical - PN: Qual - Stroke Symptom Onset Unknown: No - VTE Deep Vein Thrombosis/Pulmonary Embolism Present on Admission: No
--- NOTE | 2019-07-01 11:12 | XRay Report ---
CLINICAL INFORMATION: preoperative COMPARISON: 01/24/2019 FINDINGS: Moderate cardiomegaly is unchanged. Sternotomy/CABG changes noted. Mediastinum and pulmonary vessels are normal. Lungs are clear. No effusions. IMPRESSION: Moderate stable cardiomegaly. No acute disease Interpreted and Authenticated by: Carlton Evans 07/01/19
[2019-07-01] MEDS: LACTATED RINGERS 1,000 ML IV SCH (11:25)
[2019-07-01] MEDS ORDERED: fentaNYL 100 MCG/2 ML VIAL IV ONE (15:40)
[2019-07-01] MEDS ORDERED: MIDAZOLAM 5 MG/5 ML VIAL IV ONE (15:40)
--- NOTE | 2019-07-01 16:33 | Brief Operative Note ---
Date of procedure: 07/01/19 Pre-op diagnosis: DFU Stage 4 Right foot 5th toe Post-op diagnosis: same Procedure: Excision debridement, pulse lavage and deep tissue for c/s. Wound dimension 3 x 3 x 2 CM Undermining @ 3 2CM Undermining @12 1.8 CM Undermining @ 5 1.5 CM Undermining @ 9 1.0 CM Grafts/Implants: No Anesthesia: conscious sedation Findings: Multiloculated collections , Necrotic debris / tendon and synovial tissue. Bone and joint covered with soft synovial tissue, EBL 5 ml. Complications: none Surgeon: Brock Casanova Estimated blood loss (cc): 5 Specimens Removed/Pathology: other Condition: stable Disposition: floor (Operation well tolerated.)
[2019-07-01] MEDS ORDERED: HYDROmorphone 2 MG/ML VIAL IV PRN (23:41)
[2019-07-01] MEDS ORDERED: HYDROcodone/APAP 5/325MG TABLET PO PRN (23:42)
[2019-07-01] MEDS ORDERED: HYDROmorphone 2 MG/ML VIAL ONE (23:49)
[2019-07-02] MEDS ORDERED: HYDROcodone/APAP 5/325MG TABLET PO ONE (04:49)
[2019-07-02] MEDS: 0.9 % SODIUM CHLORIDE 10 ML SYRINGE IV SCH ×2 (04:50→04:55)
[2019-07-02] MEDS: PIPERACILLIN SODIUM/TAZOBACTAM 2.25 GM in DEXTROSE 5% IN WATER 50 ML IV SCH (04:54)
[2019-07-02 06:07] LABS: Hematocrit 29.2 % (40.1-51.0); Hemoglobin 9.7 g/dL (13.7-17.5); Mean Cell Volume 94.8 fL (80.0-100.0); Mean Corpuscular HGB Conc 33.2 g/dL (31.0-36.0); Mean Platelet Volume 9.4 fL (7.4-10.4); Platelet Count 317 K/mcL (140-440); RBC 3.08 M/mcL (4.63-6.08); Red Cell Distribution Width 13.9 % (11.5-14.5); WBC 7.2 K/mcL (4.50-11.00)
[2019-07-02 06:17] LABS: ALT/SGPT 25 U/l (0-40); AST/SGOT 37 U/l (0-37); Albumin/Globulin Ratio 0.8 (1.0-2.3); Alkaline Phosphatase 149 U/L (39-117); Bilirubin,Direct < 0.2 mg/dL (0.0-0.3); Bilirubin,Total 0.4 mg/dL (0.0-1.0); Blood Urea Nitrogen 87 mg/dl (8-23); Calcium 8.4 mg/dl (8.6-10.4); Carbon Dioxide 15 mmol/L (22-30); Chloride 108 mmol/L (96-108); Glomerular Filtration Rate 11; Glucose 89 mg/dL (70-105); Lactate Dehydrogenase 193 U/L (94-250); Phosphorous 5.2 mg/dL (2.7-4.5); Triglycerides 112 mg/dl (<150); Uric Acid 6.8 mg/dL (2.5-8.0)
[2019-07-02 06:44] LABS: Eosinophils % (Manual) 6 % (0-7); Lymphocytes % 6 % (15-49); Metamyelocytes % 1 % (0-0); Monocytes % (Manual) 7 % (1-12); Platelet Estimate NORMAL (NORMAL); RBC Morphology NORMAL (NORMAL); Segmented Neutrophils % 80 % (38-78)
[2019-07-02] MEDS: PANTOPRAZOLE 40 MG TABLET PO SCH (07:39)
[2019-07-02] MEDS: INSULIN LISPRO 1 UNIT/0.01 ML UNIT SQ SCH ×2 (07:40→11:51)
--- NOTE | 2019-07-02 07:54 | Operative Note ---
DATE OF OPERATION: 07/01/2019 PREOPERATIVE DIAGNOSIS: Diabetic foot ulcer, [place] stage IV right foot under fifth toe. POSTOPERATIVE DIAGNOSIS: Diabetic foot ulcer, Norton stage right foot under fifth toe. OPERATION: Excision debridement, pulse lavage irrigation and deep tissue biopsies for culture and sensitivities. WOUND DIMENSIONS: 3 x 2 cm, undermining at 3:00 at 2 cm, undermining at 12:00 for 1.8 cm, undermining at 5:00 for 1.5 cm, undermining at 9:00 for 1.0 cm. ESTIMATED BLOOD LOSS: 5 mL INSTRUMENT COUNT: Counts of swabs, instruments and needles were reported to be correct. ANESTHESIA: Conscious sedation. INTERNAL CORROSION SPECIALIST: Nai Dia CRNA. SURGEON: Brock Casanova MD COMPLICATIONS: None. INTRAOPERATIVE FINDINGS: Multiloculated collections with necrotic debris and synovial tissue. The bone and the joint itself are not exposed and covered with synovial tissue. INDICATIONS: This is a patient with multiple comorbid medical problems, diabetes with peripheral neuropathy. There was an interval change in his wound between yesterday and 1 week before. He was weight bearing on this foot and presented with a blood blister to the wound clinic, with soft tissue edema and obvious inflammation/infection. He was admitted to the hospital and started on intravenous antibiotics. He is now taken to the operating room for surgical debridement, deep tissue biopsies and open packing. PROCEDURE IN DETAIL: After obtaining informed consent, patient was taken to the operating room. He was placed supine on the OR table. Intravenous analgesia was given by the clinical program director. Under close hemodynamic monitoring and pulse oxygen check the right foot was widely cleaned, prepped and draped from the toes up to the knee. Preoperative photograph was taken. The patient was placed in Trendelenburg position. First, digital exploration of the wound was carried out. The loculations were broken down over the fifth toe MP joint and in the interdigital space between the fifth and fourth and fourth and third toes. The pockets were unroofed. The devitalized skin was sharply excised with Metzenbaum scissors and tooth pickups. We proceeded to irrigate this wound using pulse lavage irrigation. Three liters of normal saline mixed with 50,000 units of bacitracin, 600 mg of clindamycin and 80 mg of gentamicin solution was used. The wound was copiously irrigated and deep tissue samples were obtained for culture and sensitivity. Hemostasis was satisfactory. The wound was packed open with gauze roll soaked in Betadine solution. Gauze was placed between the remaining toes and secured in place with Kerlix bandage, Coban, and Brigido. She recovered from anesthesia uneventfully. She was taken to in stable condition. Postoperatively, I called patient's , Mary; telephone number: [phone], updated her on progress. VD:[email or web address] Job ID: [id number] Doc ID: [id number] Brock HAMMER
[2019-07-02] MEDS: APIXABAN 2.5 MG TABLET PO SCH (08:51)
[2019-07-02] MEDS: ASPIRIN 81 MG TAB.CHEW PO SCH (08:51)
[2019-07-02] MEDS: MULTIVIT,THER IRON,CA,FA & MIN 1 TABLET PO SCH (08:51)
[2019-07-02] MEDS: METOPROLOL TARTRATE 50 MG TABLET PO SCH (08:51)
[2019-07-02] MEDS: DOCUSATE SODIUM 100 MG CAPSULE PO SCH (08:51)
--- NOTE | 2019-07-02 09:47 | General Surgery Progress Note ---
Subjective Patient reports: other (Uneventful night, except for post operative pain once. Resolved with pain medications,) Narrative: Note initiated : 07/02/19 at 9:41 am Service Date, if different from initiated Date: [] Patient: Carlton Cerda 73 y/o M admitted on 06/30/19 for infected diabetic foot ulcer. Chief Complaint: [] Objective Temp Pulse Resp BP Pulse Ox 98.3 F 84 20 112/71 100 07/02/19 08:00 07/02/19 08:00 07/02/19 08:00 07/02/19 08:00 07/02/19 08:00 AVSS. No changes ABDIRAHMAN. Rt foot Post op: Dressings CDI Lab results reviewed. - Additional Data Intake & Output - Last 24 hours: Intake & Output 06/30/19 07/01/19 07/02/19 07/03/19 05:59 05:59 05:59 05:59 Intake Total 617 2220 120 Output Total 400 1850 250 Balance 217 370 -130 Weight 262 lb 8 oz 262 lb 8 oz - Labs 07/02/19 04:56 07/02/19 04:56 Diabetes panel 07/02/19 Range/Units 04:56 Sodium 137 (133-145) mmol/L Potassium 4.4 (3.3-5.1) mmol/L Chloride 108 (96-108) mmol/L Carbon Dioxide 15 L (22-30) mmol/L BUN 87 H (8-23) mg/dl Creatinine 4.8 H (0.7-1.2) mg/dl Glucose 89 (70-105) mg/dL Calcium 8.4 L (8.6-10.4) mg/dl AST 37 (0-37) U/l ALT 25 (0-40) U/l Alkaline Phosphatase 149 H (39-117) U/L Total Protein 7.0 (5.9-8.4) gm/dL Albumin 3.0 L (3.2-5.2) gm/dL Triglycerides 112 (<150) mg/dl Calcium panel 07/02/19 Range/Units 04:56 Calcium 8.4 L (8.6-10.4) mg/dl Phosphorus 5.2 H (2.7-4.5) mg/dL Albumin 3.0 L (3.2-5.2) gm/dL Pituitary panel 07/02/19 Range/Units 04:56 Sodium 137 (133-145) mmol/L Potassium 4.4 (3.3-5.1) mmol/L Chloride 108 (96-108) mmol/L Carbon Dioxide 15 L (22-30) mmol/L BUN 87 H (8-23) mg/dl Creatinine 4.8 H (0.7-1.2) mg/dl Glucose 89 (70-105) mg/dL Calcium 8.4 L (8.6-10.4) mg/dl Adrenal panel 07/02/19 Range/Units 04:56 Sodium 137 (133-145) mmol/L Potassium 4.4 (3.3-5.1) mmol/L Chloride 108 (96-108) mmol/L Carbon Dioxide 15 L (22-30) mmol/L BUN 87 H (8-23) mg/dl Creatinine 4.8 H (0.7-1.2) mg/dl Glucose 89 (70-105) mg/dL Calcium 8.4 L (8.6-10.4) mg/dl Total Bilirubin 0.4 (0.0-1.0) mg/dL AST 37 (0-37) U/l ALT 25 (0-40) U/l Alkaline Phosphatase 149 H (39-117) U/L Total Protein 7.0 (5.9-8.4) gm/dL Albumin 3.0 L (3.2-5.2) gm/dL Assessment and Plan (1) Sepsis Problem details: Patient will need OR debridement and pulse lavage irrigation of wound and unroofing of loculcated pockets . 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 Needs O2 carrying capacity to be maximized Status: Chronic Current Visit: No - Narrative A/P Narrative: Assessment: Satisfactory post operative progress. Plan: Discharge home. NWB on Right foot. KEEP DRESSING CLEAN AND DRY. Use Roll about scooter. PO Doxycycline 100 mg BID # 30 tabs F/U at wound care center 07/03/2019 May take OTC pain meds PRN. Please call wound center and confirm appointment. - Time Spent With Patient Total time spent is greater than 50% in coordination of care (as documented) at patient's floor/unit and/or counseling patient:
--- NOTE | 2019-07-02 11:04 | Discharge Summary ---
Medical - DS: Prov Patient information: Note initiated : 07/02/19 at 11:02 am Service Date, if different from initiated Date: [] Patient: Carlton Cerda 73 y/o M admitted on 06/30/19 for infected diabetic foot ulcer. Chief Complaint: [] Date of admission: 06/30/19 20:43 Discharge date: 07/02/19 Primary care physician: Laura Walton Consults: 06/30/19 Consult to Physician [CONS] Stat Comment: Consulting Provider: Nish Kahn Reason For Exam: Physician to Consult Medical - DS: Meds - Discharge Medications Prescriptions: Doxycycline Monohydrate 100 mg PO DAILY #30 tab Prescription Printed Active and Home Medications: Home Medications atorvastatin 20 mg tablet 20 mg PO .COMPLEX 02/08/16 [History Confirmed 06/30/19 Last Taken Unknown] blood sugar diagnostic 1 dose .ROUTE .MEDSUPPLY 02/08/16 [History Confirmed 06/30/19 Last Taken Unknown] apixaban 2.5 mg tablet 2.5 mg PO BID 30 Days #60 tab 02/15/17 [History Confirmed 06/30/19 Last Taken Unknown] Mv-Mn/FA/D3/Lycopene/Lut/Coq10 [Daily Multivitamin Capsule] 1 each PO DAILY 07/18/17 [History Confirmed 06/30/19 Last Taken Unknown] Vitamin B Complex [Super B-50 Complex] 1 each PO DAILY 07/18/17 [History Confirmed 06/30/19 Last Taken Unknown] glipizide 10 mg tablet 10 mg PO QDAY #30 tab 07/10/18 [Rx Confirmed 06/30/19 Last Taken Unknown] furosemide 20 mg tablet See Rx Instructions .ROUTE .COMPLEX #180 tab 01/24/19 [Rx Confirmed 06/30/19 Last Taken Unknown] metoprolol tartrate 100 mg tablet 100 mg PO BID tab 05/01/19 [History Confirmed 06/30/19 Last Taken Unknown] Aspirin [Adult Low Dose Aspirin EC] 81 mg PO DAILY 06/30/19 [History Confirmed 06/30/19 Last Taken Unknown] Benzonatate 200 mg PO TID 06/30/19 [History Confirmed 06/30/19 Last Taken Unknown] Cyanocobalamin (Vitamin B-12) [Vitamin B-12] 50 mcg PO DAILY 06/30/19 [History Confirmed 06/30/19 Last Taken Unknown] Pantoprazole Sodium [Protonix] 20 mg PO DAILY 06/30/19 [History Confirmed 06/30/19 Last Taken Unknown] Doxycycline Monohydrate 100 mg PO DAILY #30 tab 07/02/19 [Rx Last Taken Unknown] Medical - DS: Hosp Hospital Course: Discharge diagnosis * Diabetic right foot ulcer with necrosis and cellulitis-wound care consulted. Status post debridement. Wound care recommends continue doxycycline for additional 30 days along with outpatient wound care follow-up at the clinic. Discharging today * Stage IV CKD-patient recently discontinued [employer]. Managed by Dr. High nephrology as outpatient * History of diabetes mellitus managed on basal prandial insulin/CC diet * Chronic atrial fibrillation currently rate controlled. On anticoagulation for CVA prophylaxis. * Diabetic neuropathy/peripheral vascular disease with recurrent diabetic foot ulceration. * Hyperlipidemia on statin Brief hospital course Mr. Cerda is a 73 year old M with a history of CABG/CAD/CKD stage IV and diabetic neuropathy who presents to the ER after being directed from wound care office with worsening right foot cellulitis/ulcer and need for operative intervention. Initial work-up in the ER did not show any evidence of sepsis however in the setting of worsening cellulitis/expanding ulceration hospitalist service was consulted for admission and consultation with wound care physician Dr. Casanova At the time evaluation patient is accompanied with his Mary. He was able to answer most of the questions. He denies shaking chills, fever, worsening pain but endorses to worsening wound over the last few days. He denies recent trauma. His blood sugars have been around 200. He denies missing medications. 06/30-patient doing well. Due for operative debridement by surgery today. Currently n.p.o. No overnight events. Ongoing antibiotic coverage. Wound c ultures and blood cultures pending. No overnight fever chills. White count 9.2, hemoglobin 9.7, creatinine 4.6 318-patient doing well. No overnight events. Status post wound debridement. Discharging as per recommendation of wound care physician with continued oral antibiotics/outpatient follow-up with wound care clinic. No other concerns expressed to nursing staff. Discharge diagnosis: . - Time Spent with Patient Total time spent providing and/or coordinating discharge services: Greater than 30 minutes Medical - DS: Exam - Constitutional Vitals: Vital Signs Temp Pulse Resp BP Pulse Ox 07/02/19 08:00 98.3 F 84 20 112/71 100 03/18/20 07:40 89 18 98 07/02/19 05:00 98.3 F 81 18 130/61 98 07/01/19 23:37 97.6 F 82 24 H 113/59 97 07/01/19 20:00 88 18 100 07/01/19 19:41 97.0 F 88 18 150/92 100 07/01/19 17:55 97.4 F 74 18 136/83 98 07/01/19 17:00 82 18 146/92 96 07/01/19 16:45 73 16 131/74 99 07/01/19 16:30 97.4 F 74 16 127/76 96 07/01/19 11:46 97.9 F 66 20 143/74 98 Intake and Output 07/01/19 07/02/19 07/02/19 21:59 05:59 13:59 Intake Total 900 50 120 Output Total 200 1400 250 Balance 700 -1350 -130 Intake: IV 100 50 Zosyn 2.25 gm In Dextrose 5% in 100 50 Water 50 ml @ 100 mls/hr IV Q8H PENDING SALE TO [facility] Rx#:[id number] Oral 800 120 Output: Void Amount 200 1400 250 Other: Meal Dinner Breakfast Percent of Meal Consumed 50% 90% Feeding Ability Independent Independent Urine Appearance Clear Clear Clear Urine Color Bright Yellow Bright Yellow Dark Yellow Urine Odor Normal Normal Stool Size Moderate Stool Color Brown Green Stool Consistency Watery # Voids 1 Weight 262 lb 8 oz Medical - DS: Data Labs on day of discharge: Labs from last 24 hours 07/02/19 07/02/19 07/02/19 04:56 04:56 04:56 WBC 7.2 RBC 3.08 L Hgb 9.7 L Hct 29.2 L MCV 94.8 MCH 31.5 MCHC 33.2 RDW 13.9 Plt Count 317 MPV 9.4 Total Counted 100 Seg Neutrophils % 80 H Band Neutrophils % Not Reportable Lymphocytes % 6 L Monocytes % (Manual) 7 Eosinophils % (Manual) 6 Metamyelocytes % 1 H Platelet Estimate Normal RBC Morphology Normal Sodium 137 Potassium 4.4 Chloride 108 Carbon Dioxide 15 L Anion Gap 14.0 BUN 87 H Creatinine 4.8 H GFR Calculation 11 Glucose 89 Uric Acid 6.8 Calcium 8.4 L Phosphorus 5.2 H Magnesium 2.2 Total Bilirubin 0.4 Direct Bilirubin < 0.2 GGT 139 H AST 37 ALT 25 Alkaline Phosphatase 149 H Lactate Dehydrogenase 193 Total Protein 7.0 Albumin 3.0 L Globulin 4.0 H Albumin/Globulin Ratio 0.8 L Triglycerides 112 Vancomycin Trough 12.0 Preliminary micro results at discharge 06/30/19 20:18 Blood Culture - Preliminary Blood 06/30/19 20:28 Blood Culture - Preliminary Blood Medical - DS: A/P - Patient/Caregiver Discharge Instructions Activity: as per physical therapy, increase activity as tolerated Diet: Consistent Carbohydrate Additional Instructions: Continue wound management per wound care physician Continue doxycycline as recommended by wound care for 30 days Follow-up PCP in 5 to 7 days Postoperative instructions as per wound care Prescriptions: Doxycycline Monohydrate 100 mg PO DAILY #30 tab Prescription Printed - Problem Maintenance (1) Diabetic foot ulcer Status: Chronic Comment: Right Qualifiers: Diabetic foot ulcer location: toe Diabetes mellitus type: type 2 Laterality: right Non-pressure ulcer stage: with bone involvement without evidence of necrosis Qualified Code(s): E11.621 - Type 2 diabetes mellitus with foot ulcer; L97.516 - Non-pressure chronic ulcer of other part of right foot with bone involvement without evidence of necrosis - Follow up Plan Follow up with: Brock Casanova MD [Physician] - 07/03/19 11:00 am Laura Walton MD [Primary Care Provider] - Disposition: Home, Self-Care Care Plan Goals: This discharge packet is provided to you to help keep you informed about your care. We want to ensure you get everything you need when you go home. You will also be receiving a call from us in a few days to follow up with you and see how you are doing since your discharge. This gives us a chance to listen to any concerns you maybe experiencing since you were discharged or any additional needs you may have, as well as providing us feedback on your care experience. We strive to always provide excellent care and thank you for your feedback and for choosing [facility]. Prognosis: Fair Rehab Potential: Fair Overall status at discharge: patient is progressing back to baseline Medical - DS: Qual - VTE Deep Vein Thrombosis/Pulmonary Embolism Present on Admission: No
== END 2019-07-02 12:20 | disposition home or self-care (01) | DRG 638 ==
LOC: ED 15:45 → MEDSUR 20:43
PROVIDERS: ADMIT Internal Medicine; ATTEND Internal Medicine

== ENCOUNTER 2020-02-10 18:00 | Inpatient (IN) ==
--- NOTE | 2020-02-10 18:27 | Emergency Department Note ---
HPI General Chief complaint: Blood Sugar Problem Stated complaint: weakness Time Seen by Provider: 02/10/20 18:11 Source: patient, family and RN notes reviewed Mode of arrival: wheelchair Limitations: no limitations History of Present Illness HPI Narrative: Narrative: This patient comes in because of low blood sugar. He does not take any diabetic medications. He stopped his last low-dose glipizide about 3 weeks ago. He has been on metformin and glipizide in the past but his blood sugars have run low and he has not required the medication. Over the last 3 days he has had blood sugars as low as 45 and has felt weak and dizzy. He says he been trying to eat and drink plenty of juice to bring his blood sugars up but it does not seem to be working. His blood sugar here in the emergency room is 50. He has never had this problem before. He says he does have some renal insufficiency. He tried dialysis back in May but did not continue. Onset (ago): day(s) Related Data Home Medications Medication Instructions Recorded Confirmed atorvastatin 20 mg tablet 20 mg PO HS 02/08/16 01/13/20 blood sugar diagnostic 02/08/16 10/21/19 apixaban 2.5 mg tablet 2.5 mg PO BID 30 Days #60 tab 02/15/17 01/13/20 [id number]-vit [id number] 1 each PO DAILY 07/18/17 01/13/20 metoprolol tartrate 100 mg tablet 100 mg PO BID tab 05/01/19 01/13/20 diltiazem HCl [Cartia XT] 180 mg PO QDAY 12/12/19 01/13/20 multivitamin with minerals [Daily 1 tab PO QDAY 12/12/19 01/13/20 Multivitamin-Minerals] pantoprazole 20 mg PO QDAY 12/12/19 01/13/20 polyethylene glycol 3350 17 g PO QDAY PRN 12/12/19 01/13/20 [LaxaClear] furosemide 20 mg PO BID 01/13/20 01/13/20 Allergies Allergy/AdvReac Type Severity Reaction Status Date / Time No Known Drug Allergies Allergy Verified 01/13/20 15:44 Review of Systems ROS ROS Narrative: Narrative: All systems ED: reviewed and negative except as stated. PFSH Narrative Patient History Narrative: Narrative: Medical/Surgical/Family History All Active Problems (Updated 02/10/20 @ 20:39 by Arnie Sultana MD) Cellulitis (Acute) Hypoglycemia (Acute) 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) Atrial fibrillation with normal ventricular rate (Chronic) Mitral valve stenosis and regurgitation (Chronic) Chronic combined systolic and diastolic CHF, NYHA class 2 (Chronic) Anemia due to stage 5 chronic kidney disease treated with darbepoetin (Chronic) CKD stage G5/A3, GFR <15 and albumin creatinine ratio >300 mg/g (Chronic) CKD stage G4/A3, GFR 15-29 and albumin creatinine ratio >300 mg/g (Chronic) Lung nodule (Chronic) Aspiration into airway (Chronic) Pharyngeal dysphagia (Chronic) GERD (gastroesophageal reflux disease) (Chronic) Anemia in stage 4 chronic kidney disease (Chronic) Secondary hyperparathyroidism of renal origin (Chronic) Numbness (Chronic) Change in nail appearance (Chronic) Adenomatous colon polyp (Chronic) TIA (transient ischemic attack) (Chronic) Shingles (Chronic) nursing home (current) use of anticoagulants (Chronic) History of bleeding ulcers (Chronic) Hepatocellular carcinoma (Chronic) Mitral stenosis (Chronic) AV block, 1st degree (Chronic) Ventricular bigeminy (Chronic) Bradycardia (Chronic) Coronary artery disease (Chronic) Severe obesity (Chronic) Cirrhosis (Chronic) Chronic atrial fibrillation (Chronic) Diabetic foot ulcer (Chronic) Hammer toe of right foot (Chronic) Hammer toe of left foot (Chronic) Ridged nails (Chronic) Changes in skin texture (Chronic) Edema, unspecified (Chronic) Chronic ulcer of great toe of right foot with necrosis of bone (Chronic) Type 2 diabetes mellitus with foot ulcer (Chronic) PAD (peripheral artery disease) (Chronic) Personal history of nicotine dependence (Chronic) nursing home (current) use of oral hypoglycemic drugs (Chronic) Type 2 diabetes mellitus with diabetic peripheral angiopathy without gangrene (Chronic) Corns and callosities (Chronic) Tinea unguium (Chronic) Obese (Chronic) Ambulates with cane (Chronic) Bruising (Chronic) Intermittent claudication (Chronic) Dyspnea on exertion (Chronic) Loss of taste (Chronic) Myocardial infarction (Chronic) Hypertension (Chronic) Hypercholesterolemia (Chronic) Peripheral vascular disease (Chronic) Non-healing ulcer (Chronic) Osteomyelitis (Chronic) Diabetic ulcer of toe (Chronic) Congestive heart failure (Chronic) Numbness in feet (Chronic) Burning sensation of feet (Chronic) Paresthesia (Chronic) Muscle cramps (Chronic) Leg pain (Chronic) History of acute myocardial infarction (Chronic) Wound abscess (Chronic) Wound cellulitis (Chronic) Chronic kidney disease, stage 3 (Chronic) Preventative health care (Chronic) Diabetic peripheral neuropathy (Chronic) DM (diabetes mellitus), type 2, uncontrolled w/neurologic complication (Chronic) Diabetes mellitus with renal manifestation (Chronic) CKD stage 4 due to type 2 diabetes mellitus (Chronic) Diabetes mellitus with peripheral circulatory disorder (Chronic) Claudication (Chronic) Hypertensive CKD (chronic kidney disease) (Chronic) Paroxysmal atrial fibrillation (Chronic) Hyperlipidemia (Chronic) Severe obesity (Chronic) Nocturia (Chronic) Screening PSA (prostate specific antigen) (Chronic) History of tobacco use (Chronic) Dystrophic nail (Chronic) Onychomycosis (Chronic) Medical History (Updated 02/10/20 @ 20:39 by Arnie Sultana MD) Adenomatous colon polyp (Chronic) Ambulates with cane (Chronic) Anemia due to stage 5 chronic kidney disease treated with darbepoetin (Chronic) Aranesp q 2-4 weeks if HgB <10 gm/dl. Needs O2 carrying capacity to be maximized Anemia in stage 4 chronic kidney disease (Chronic) Serial hemoglobin and hematocrit Iron studies Start JULIAN therapy when and if hemoglobin less than 10 given his cardiac status Aspiration into airway (Chronic) AV block, 1st degree (Chronic) Bradycardia (Chronic) Bruising (Chronic) Burning sensation of feet (Chronic) occasionally Change in nail appearance (Chronic) Changes in skin texture (Chronic) Chronic atrial fibrillation (Chronic) Chronic combined systolic and diastolic CHF, NYHA class 2 (Chronic) Combination ASCAD, HTN and Valvular heart disease. A fib with RVR (Like with HD) caused acute decompensation and resulted in patients informed choice to forgo further dialysis treatments Chronic cough (Resolved) Chronic kidney disease, stage 3 (Chronic) Chronic ulcer of great toe of right foot with necrosis of bone (Chronic) Cirrhosis (Chronic) CKD stage 4 due to type 2 diabetes mellitus (Chronic) Slow progression to a GFR of 11 cc/min. 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 use of apixaban as an anticoagulant makes renal biopsy difficult logistically. CKD stage G5/A3, GFR <15 and albumin creatinine ratio >300 mg/g (Chronic) Slow progression till 04/2019 when cholecystitis and ARF. Peak SCr 8, 2 weeks HD but could not tolerate. Stopped HD 06/02/2019 and conservative Tx thereafter, "baseline SCr was 4.5 mg/dl" Heavy proteinuria and well-controlled hemoglobin A1 C's make me think that this is not diabetic nephropathy but perhaps related to congestive heart failure or any of the other age related diseases such as a monoclonal related process, membranous as he has had prior adenocarcinoma of his liver or FSGN. We will treat conservatively he has not tolerated RAASI in the past due to hyperkalemia, so using diltiazem for its anti-proteinuric effects and for rate control with A. fib Claudication (Chronic) Corns and callosities (Chronic) Coronary artery disease (Chronic) Diabetes mellitus with peripheral circulatory disorder (Chronic) Diabetes mellitus with renal manifestation (Chronic) Diabetic foot ulcer (Chronic) Right Diabetic peripheral neuropathy (Chronic) DM (diabetes mellitus), type 2, uncontrolled w/neurologic complication (Chronic) and vascular complications Dyspnea on exertion (Chronic) Dystrophic nail (Chronic) Edema, unspecified (Chronic) GERD (gastroesophageal reflux disease) (Chronic) Hammer toe of left foot (Chronic) Hammer toe of right foot (Chronic) Hepatocellular carcinoma (Chronic) History of acute myocardial infarction (Chronic) History of bleeding ulcers (Chronic) History of tobacco use (Chronic) Hypercholesterolemia (Chronic) Hyperlipidemia (Chronic) Hypertension (Chronic) Hypertensive CKD (chronic kidney disease) (Chronic) Intermittent claudication (Chronic) Leg pain (Chronic) nursing home (current) use of anticoagulants (Chronic) 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 Wth mild on resting ECHO, significant on HD with rapid AFIb leading to Muscle cramps (Chronic) Myocardial infarction (Chronic) Nocturia (Chronic) Non-healing ulcer (Chronic) Numbness (Chronic) Numbness in feet (Chronic) sometimes Obese (Chronic) Onychomycosis (Chronic) Osteomyelitis (Chronic) Right 3rd Toe PAD (peripheral artery disease) (Chronic) Paresthesia (Chronic) Paroxysmal atrial fibrillation (Chronic) Peripheral vascular disease (Chronic) Personal history of nicotine dependence (Chronic) Pharyngeal dysphagia (Chronic) Preventative health care (Chronic) Ridged nails (Chronic) Screening PSA (prostate specific antigen) (Chronic) Secondary hyperparathyroidism of renal origin (Chronic) Monitor PTH on calcitriol 0.25 ug per day until 06/05/2019 when I held his calcitriol as his PTH was now less than 50 Severe obesity (Chronic) Severe obesity (Chronic) Shingles (Chronic) TIA (transient ischemic attack) (Chronic) Tinea unguium (Chronic) Type 2 diabetes mellitus with diabetic peripheral angiopathy without gangrene (Chronic) Type 2 diabetes mellitus with foot ulcer (Chronic) Ventricular bigeminy (Chronic) 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) While he has significant proteinuria his hemoglobin A1c is well controlled as has been his diabetes and I suspect he has some sort of other glomerulonep hritides that at this point will treat with diltiazem for anti-proteinuric effects and he is anticoagulated for his atrial fibrillation Wound abscess (Chronic) Wound cellulitis (Chronic) Surgical History History of amputation of toe (Chronic) Right 2nd Toe History of bilateral cataract extraction (Chronic) History of colonoscopy (Chronic 05/17/10) History of coronary artery bypass graft (Chronic) History of detached retina repair (Chronic) History of open heart surgery (Chronic ~1980) Bypass History of oral surgery (Chronic) History of surgery (Acute) per patient liver cancer 2017 History of tonsillectomy (Chronic) Family History Mother Heart disease Kidney disease COPD (chronic obstructive pulmonary disease) Father Diabetes Social History Smoking Status: Never smoker Alcohol Intake Frequency: does not drink Substance Use: does not use Exam Narrative Narrative: Narrative: General Limitations: no limitations Head Head: Present atraumatic, normocephalic and normal inspection Eye Eye: Present normal appearance and EOMI; Absent scleral icterus and conjunctival injection ENT ENT: Present normal exam, normal oropharynx and mucous membranes moist Neck Neck: Present normal inspection and full ROM Chest Chest: Present normal inspection and symmetric chest wall rise Respiratory Respiratory: Present normal lung sounds bilaterally Cardiovascular Cardiovascular: Present regular rate, normal rhythm and normal heart sounds Adbominal Abdominal: Present soft; Absent distention and tenderness Extremities Extremities: Present normal inspection and full ROM; Absent pedal edema and pretibial edema Neurological Neurological: Present alert Psychiatric Psychiatric: Present normal affect Skin Skin: Present warm (WNL) and dry; Absent diaphoresis Course Vital Signs Vital signs: Vital Signs Temperature 98.0 F 02/10/20 18:01 Pulse Rate 85 02/10/20 18:01 Respiratory Rate 22 02/10/20 18: Blood Pressure 138/88 02/10/20 18:01 Pulse Oximetry (%) 97 02/10/20 18: Temperature 98.0 F 02/10/20 18: Pulse Rate 46 L 02/10/20 20:01 Respiratory Rate 19 02/10/20 20:01 Blood Pressure 135/92 02/10/20 20:01 Pulse Oximetry (%) 97 02/10/20 20:01 MDM MDM Narrative Medical decision making narrative: Narrative: I discussed the patient with 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 He said his hypoglycemia is mostly due to his liver insufficiency and kidney insufficiency. He does not have any good source of gluconeogenesis. He needs to be admitted and Dr. Cho ordered a few other tests. I spoke with Dr. Lenz the hospitalist and he will be admitted to the hospital by Dr. Lenz. Lab Data Lab results reviewed: Yes I reviewed the patient's lab results. Result diagrams: 02/10/20 18:25 02/10/20 18:25 Labs: Lab Results 02/10/20 02/10/20 Range/Units 18:25 18:25 WBC 8.0 (4.5-11.0) K/mcL RBC 3.00 L (4.50-5.90) M/mcL Hgb 9.2 L (13.5-16.5) g/dL Hct 28.0 L (41.0-55.0) % MCV 93.3 (80.0-100.0) fL MCH 30.7 (26.0-34.0) pg MCHC 32.9 (31.0-36.0) g/dL RDW 14.5 (11.5-14.5) % Plt Count 184 (140-440) K/mcL MPV 10.6 H (7.4-10.4) fL Neut % (Auto) 84.0 H (38.0-78.0) % Lymph % (Auto) 3.8 L (15.0-49.0) % [place] % (Auto) 9.6 (1.0-12.0) % Eos % (Auto) 2.3 (0.0-7.0) % Baso % (Auto) 0.3 (0.0-2.0) % Lymph # (Auto) 0.30 L (1.50-4.80) K/mcL [place] # (Auto) 0.77 (0.10-0.90) K/mcL Eos # (Auto) 0.18 (0.00-0.70) K/mcL Baso # (Auto) 0.02 (0.00-0.20) K/mcL Absolute Neutrophils 6.73 (1.80-8.00) K/mcL Sodium 132 L (133-145) mmol/L Potassium 5.2 H (3.3-5.1) mmol/L Chloride 99 (96-108) mmol/L Carbon Dioxide 14 L (22-30) mmol/L Anion Gap 19.0 H (8.0-16.0) BUN 102 H* (8-23) mg/dL Creatinine 5.6 H* (0.7-1.2) mg/dL GFR Calculation 9 Glucose 42 L (70-105) mg/dL Calcium 8.5 L (8.6-10.4) mg/dL Total Bilirubin 0.3 (0.1-1.0) mg/dL AST 35 (<40) U/L ALT 17 (<40) U/L Alkaline Phosphatase 162 H (39-117) U/L Total Protein 7.4 (5.9-8.4) gm/dL Albumin 3.7 (3.2-5.2) gm/dL Globulin 3.7 (2.2-3.7) gm/dL Albumin/Globulin Ratio 1.0 (1.0-2.3) Discharge Plan Patient/Caregiver Discharge Instructions Pt seen by DIRECTOR OF ONLINE EDUCATION/PA only: No Clinical Impression: Hypoglycemia, Hepatocellular carcinoma, Mitral stenosis, Cirrhosis, Chronic kidney disease, stage 3, Wound cellulitis Patient Disposition: Xfer As Inpt ([facility]) Follow up with: Laura Walton MD [Primary Care Provider] - Prescriptions: No Action atorvastatin 20 mg tablet 20 mg PO HS RF: 0 (DME) blood sugar diagnostic [Contour Test Strips] strip 1 dose .ROUTE .MEDSUPPLY RF: 0 apixaban 2.5 mg tablet 2.5 mg PO BID 30 Days Qty: 60 RF: 0 metoprolol tartrate 100 mg tablet 100 mg PO BID RF: 0 re-xa-XF-vit E-yoxyj-nkj-coQ10 1 EACH capsule 1 each PO DAILY RF: 0 diltiazem HCl [Cartia XT] 180 mg Capsule,Extended Release 24hr 180 mg PO QDAY RF: 0 pantoprazole 20 mg Tablet,Delayed Release (Dr/Ec) 20 mg PO QDAY RF: 0 multivitamin with minerals [Daily Multivitamin-Minerals] Tablet 1 tab PO QDAY RF: 0 polyethylene glycol 3350 [LaxaClear] 17 gram/dose Powder 17 g PO QDAY PRN (Reason: Constipation) RF: 0 furosemide 20 mg tablet 20 mg PO BID RF: 0
[2020-02-10] MEDS ORDERED: DEXTROSE 10 % IN WATER 1,000 ML IV SCH (18:45)
[2020-02-10 19:10] LABS: Basophils # (Auto) 0.02 K/mcL (0.00-0.20); Basophils % (Auto) 0.3 % (0.0-2.0); Eosinophils # (Auto) 0.18 K/mcL (0.00-0.70); Eosinophils % (Auto) 2.3 % (0.0-7.0); Hemoglobin 9.2 g/dL (13.5-16.5); Lymphocytes % (Auto) 3.8 % (15.0-49.0); Mean Cell Volume 93.3 fL (80.0-100.0); Mean Corpuscular HGB Conc 32.9 g/dL (31.0-36.0); Mean Platelet Volume 10.6 fL (7.4-10.4); Monocytes # (Auto) 0.77 K/mcL (0.10-0.90); Monocytes % (Auto) 9.6 % (1.0-12.0); Platelet Count 184 K/mcL (140-440); Red Cell Distribution Width 14.5 % (11.5-14.5)
[2020-02-10 19:47] LABS: ALT/SGPT 17 U/L (<40); AST/SGOT 35 U/L (<40); Albumin 3.7 gm/dL (3.2-5.2); Alkaline Phosphatase 162 U/L (39-117); Bilirubin,Total 0.3 mg/dL (0.1-1.0); Blood Urea Nitrogen 102 mg/dL (8-23); Calcium 8.5 mg/dL (8.6-10.4); Carbon Dioxide 14 mmol/L (22-30); Chloride 99 mmol/L (96-108); Globulin 3.7 gm/dL (2.2-3.7); Glomerular Filtration Rate 9; Glucose 42 mg/dL (70-105)
--- NOTE | 2020-02-10 20:38 | Internal Med History&Physical ---
HPI History of Present Illness Patient information: Note initiated : 02/10/20 at 8:38 pm Service Date, if different from initiated Date: [] Patient: Carlton Cerda 74 y/o M admitted on for weakness. Chief Complaint: Low blood sugars History of present illness: Mr. Cerda is a 74 year old M with a known history of hepatocellular carcinoma/PAF/HTN/DM type II/CKD stage IV was previously on dialysis but stopped due to severe mitral stenosis causing hypotension during dialysis, who presents to the ER with symptoms of low blood sugar/dizziness worsening over the last few days. Patient symptoms started around Sunday with blood sugars dropping to 40s. He called his primary care physician and was advised to continue high sugar foods including juices. However he continues to experience symptoms of hypoglycemia along with worsening dizziness weakness prompting him to present to the ER. Initial work-up in the ER was consistent with blood sugars in 45. Patient was started on D10. He is noted to have worsening renal function with increasing cr eatinine, potassium 5.2, BUN over 100. Nephrology is consulted and requested hospitalization. Subsequently hospital service was consulted At the time of evaluation patient is alert and respond to commands. He denies diaphoresis, chest pain or shortness of breath but endorses to weakness and dizziness. He has gradually stopped taking his diabetic medications. 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) Atrial fibrillation with normal ventricular rate (Chronic) Mitral valve stenosis and regurgitation (Chronic) Chronic combined systolic and diastolic CHF, NYHA class 2 (Chronic) Anemia due to stage 5 chronic kidney disease treated with darbepoetin (Chronic) CKD stage G5/A3, GFR <15 and albumin creatinine ratio >300 mg/g (Chronic) CKD stage G4/A3, GFR 15-29 and albumin creatinine ratio >300 mg/g (Chronic) Lung nodule (Chronic) Aspiration into airway (Chronic) Pharyngeal dysphagia (Chronic) GERD (gastroesophageal reflux disease) (Chronic) Anemia in stage 4 chronic kidney disease (Chronic) Secondary hyperparathyroidism of renal origin (Chronic) Numbness (Chronic) Change in nail appearance (Chronic) Adenomatous colon polyp (Chronic) TIA (transient ischemic attack) (Chronic) Shingles (Chronic) 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) use of anticoagulants (Chronic) History of bleeding ulcers (Chronic) Hepatocellular carcinoma (Chronic) Mitral stenosis (Chronic) AV block, 1st degree (Chronic) Ventricular bigeminy (Chronic) Bradycardia (Chronic) Coronary artery disease (Chronic) Severe obesity (Chronic) Cirrhosis (Chronic) Chronic atrial fibrillation (Chronic) Diabetic foot ulcer (Chronic) Hammer toe of right foot (Chronic) Hammer toe of left foot (Chronic) Ridged nails (Chronic) Changes in skin texture (Chronic) Edema, unspecified (Chronic) Chronic ulcer of great toe of right foot with necrosis of bone (Chronic) Type 2 diabetes mellitus with foot ulcer (Chronic) PAD (peripheral artery disease) (Chronic) Personal history of nicotine dependence (Chronic) half-way (current) use of oral hypoglycemic drugs (Chronic) Type 2 diabetes mellitus with diabetic peripheral angiopathy without gangrene (Chronic) Corns and callosities (Chronic) Tinea unguium (Chronic) Obese (Chronic) Ambulates with cane (Chronic) Bruising (Chronic) Intermittent claudication (Chronic) Dyspnea on exertion (Chronic) Loss of taste (Chronic) Myocardial infarction (Chronic) Hypertension (Chronic) Hypercholesterolemia (Chronic) Peripheral vascular disease (Chronic) Non-healing ulcer (Chronic) Osteomyelitis (Chronic) Diabetic ulcer of toe (Chronic) Congestive heart failure (Chronic) Numbness in feet (Chronic) Burning sensation of feet (Chronic) Paresthesia (Chronic) Muscle cramps (Chronic) Leg pain (Chronic) History of acute myocardial infarction (Chronic) Wound abscess (Chronic) Wound cellulitis (Chronic) Chronic kidney disease, stage 3 (Chronic) Preventative health care (Chronic) Diabetic peripheral neuropathy (Chronic) DM (diabetes mellitus), type 2, uncontrolled w/neurologic complication (Chronic) Diabetes mellitus with renal manifestation (Chronic) CKD stage 4 due to type 2 diabetes mellitus (Chronic) Diabetes mellitus with peripheral circulatory disorder (Chronic) Claudication (Chronic) Hypertensive CKD (chronic kidney disease) (Chronic) Paroxysmal atrial fibrillation (Chronic) Hyperlipidemia (Chronic) Severe obesity (Chronic) Nocturia (Chronic) Screening PSA (prostate specific antigen) (Chronic) History of tobacco use (Chronic) Dystrophic nail (Chronic) Onychomycosis (Chronic) Medical History (Updated 02/10/20 @ 20:39 by Arnie Sultana MD) Adenomatous colon polyp (Chronic) Ambulates with cane (Chronic) Anemia due to stage 5 chronic kidney disease treated with darbepoetin (Chronic) Aranesp q 2-4 weeks if HgB <10 gm/dl. Needs O2 carrying capacity to be maximized Anemia in stage 4 chronic kidney disease (Chronic) Serial hemoglobin and hematocrit Iron studies Start JULIAN therapy when and if hemoglobin less than 10 given his cardiac status Aspiration into airway (Chronic) AV block, 1st degree (Chronic) Bradycardia (Chronic) Bruising (Chronic) Burning sensation of feet (Chronic) occasionally Change in nail appearance (Chronic) Changes in skin texture (Chronic) Chronic atrial fibrillation (Chronic) Chronic combined systolic and diastolic CHF, NYHA class 2 (Chronic) Combination ASCAD, HTN and Valvular heart disease. A fib with RVR (Like with HD) caused acute decompensation and resulted in patients informed choice to forgo further dialysis treatments Chronic cough (Resolved) Chronic kidney disease, stage 3 (Chronic) Chronic ulcer of great toe of right foot with necrosis of bone (Chronic) Cirrhosis (Chronic) CKD stage 4 due to type 2 diabetes mellitus (Chronic) Slow progression to a GFR of 11 cc/min. 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 use of apixaban as an anticoagulant makes renal biopsy difficult logistically. CKD stage G5/A3, GFR <15 and albumin creatinine ratio >300 mg/g (Chronic) Slow progression till 04/2019 when cholecystitis and ARF. Peak SCr 8, 2 weeks HD but could not tolerate. Stopped HD 06/02/2019 and conservative Tx thereafter, "baseline SCr was 4.5 mg/dl" Heavy proteinuria and well-controlled hemoglobin A1 C's make me think that this is not diabetic nephropathy but perhaps related to congestive heart failure or any of the other age related diseases such as a monoclonal related process, membranous as he has had prior adenocarcinoma of his liver or FSGN. We will treat conservatively he has not tolerated RAASI in the past due to hyperkalemia, so using diltiazem for its anti-proteinuric effects and for rate control with A. fib Claudication (Chronic) Corns and callosities (Chronic) Coronary artery disease (Chronic) Diabetes mellitus with peripheral circulatory disorder (Chronic) Diabetes mellitus with renal manifestation (Chronic) Diabetic foot ulcer (Chronic) Right Diabetic peripheral neuropathy (Chronic) DM (diabetes mellitus), type 2, uncontrolled w/neurologic complication (Chronic) and vascular complications Dyspnea on exertion (Chronic) Dystrophic nail (Chronic) Edema, unspecified (Chronic) GERD (gastroesophageal reflux disease) (Chronic) Hammer toe of left foot (Chronic) Hammer toe of right foot (Chronic) Hepatocellular carcinoma (Chronic) History of acute myocardial infarction (Chronic) History of bleeding ulcers (Chronic) History of tobacco use (Chronic) Hypercholesterolemia (Chronic) Hyperlipidemia (Chronic) Hypertension (Chronic) Hypertensive CKD (chronic kidney disease) (Chronic) Intermittent claudication (Chronic) Leg pain (Chronic) half-way (current) use of anticoagulants (Chronic) 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 Wth mild on resting ECHO, significant on HD with rapid AFIb leading to Muscle cramps (Chronic) Myocardial infarction (Chronic) Nocturia (Chronic) Non-healing ulcer (Chronic) Numbness (Chronic) Numbness in feet (Chronic) sometimes Obese (Chronic) Onychomycosis (Chronic) Osteomyelitis (Chronic) Right 3rd Toe PAD (peripheral artery disease) (Chronic) Paresthesia (Chronic) Paroxysmal atrial fibrillation (Chronic) Peripheral vascular disease (Chronic) Personal history of nicotine dependence (Chronic) Pharyngeal dysphagia (Chronic) Preventative health care (Chronic) Ridged nails (Chronic) Screening PSA (prostate specific antigen) (Chronic) Secondary hyperparathyroidism of renal origin (Chronic) Monitor PTH on calcitriol 0.25 ug per day until 06/05/2019 when I held his calcitriol as his PTH was now less than 50 Severe obesity (Chronic) Severe obesity (Chronic) Shingles (Chronic) TIA (transient ischemic attack) (Chronic) Tinea unguium (Chronic) Type 2 diabetes mellitus with diabetic peripheral angiopathy without gangrene (Chronic) Type 2 diabetes mellitus with foot ulcer (Chronic) Ventricular bigeminy (Chronic) 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) While he has significant proteinuria his hemoglobin A1c is well controlled as has been his diabetes and 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 that at this point will treat with diltiazem for anti- proteinuric effects and he is anticoagulated for his atrial fibrillation Wound abscess (Chronic) Wound cellulitis (Chronic) Surgical History History of amputation of toe (Chronic) Right 2nd Toe History of bilateral cataract extraction (Chronic) History of colonoscopy (Chronic 05/17/10) History of coronary artery bypass graft (Chronic) History of detached retina repair (Chronic) History of open heart surgery (Chronic ~1980) Bypass History of oral surgery (Chronic) History of surgery (Acute) per patient liver cancer 2017 History of tonsillectomy (Chronic) Family History Mother Heart disease Kidney disease COPD (chronic obstructive pulmonary disease) Father Diabetes Social History marital status: smoking status: Never smoker smoking status start date: 04/16/06 smoking status stop date: 04/16/78 alcohol intake frequency: does not drink substance use type: does not use MEDS/ALLERGIES Home Medications and Allergies Home Medications Medication Instructions Recorded Confirmed Type atorvastatin 20 mg tablet 20 mg PO HS 02/08/16 02/11/20 History blood sugar diagnostic 02/08/16 02/10/20 History apixaban 2.5 mg tablet 2.5 mg PO BID 30 Days #60 tab 02/15/17 02/11/20 History metoprolol tartrate 100 mg tablet 100 mg PO BID tab 05/01/19 02/11/20 History diltiazem HCl [Cartia XT] 180 mg PO QDAY 12/12/19 02/11/20 History pantoprazole 20 mg PO QDAY 12/12/19 02/11/20 History furosemide 20 mg PO BID 01/13/20 02/11/20 History C,E,zinc,copper [id number] 1 cap PO DAILY 02/11/20 02/11/20 History [Ocuvite Adult 50 Plus] [id number] K 1 tab PO DAILY 02/11/20 02/11/20 History [Adults Multivitamin] Allergies Allergy/AdvReac Type Severity Reaction Status Date / Time No Known Drug Allergies Allergy Verified 01/13/20 15:44 EXAM Constitutional Vitals: Temp Pulse Resp BP Pulse Ox 98.0 F 46 L 19 135/92 97 02/10/20 18:01 02/10/20 20:01 02/10/20 20:01 02/10/20 20:01 02/10/20 20:01 Minimally anxious Head normocephalic Oral cavity moist No ear nose discharge Eye movement symmetrical Neck supple no lymphadenopathy S1-S2 irregular Nonlabored breathing Nondistended nontender abdomen No cyanosis Skin no suspicious lesion Psych anxious but alert cooperative Neuro normal higher function DATA Data Completed and Pending Labs: Labs from last 24 hours 02/10/20 02/10/20 02/10/20 18:25 18:25 18:25 WBC RBC Hgb Hct MCV MCH MCHC RDW Plt Count MPV Neut % (Auto) Lymph % (Auto) Fountain % (Auto) Eos % (Auto) Baso % (Auto) Lymph # (Auto) Fountain # (Auto) Eos # (Auto) Baso # (Auto) Absolute Neutrophils PT Pending INR Pending Sodium Potassium Chloride Carbon Dioxide Anion Gap BUN Creatinine GFR Calculation Glucose C-Peptide Pending Calcium Total Bilirubin AST ALT Alkaline Phosphatase Total Protein Albumin Globulin Albumin/Globulin Ratio Glucagon Pending Random Cortisol 02/10/20 02/10/20 02/10/20 18:25 18:25 18:25 WBC 8.0 RBC 3.00 L Hgb 9.2 L Hct 28.0 L MCV 93.3 MCH 30.7 MCHC 32.9 RDW 14.5 Plt Count 184 MPV 10.6 H Neut % (Auto) 84.0 H Lymph % (Auto) 3.8 L Fountain % (Auto) 9.6 Eos % (Auto) 2.3 Baso % (Auto) 0.3 Lymph # (Auto) 0.30 L Fountain # (Auto) 0.77 Eos # (Auto) 0.18 Baso # (Auto) 0.02 Absolute Neutrophils 6.73 PT INR Sodium 132 L Potassium 5.2 H Chloride 99 Carbon Dioxide 14 L Anion Gap 19.0 H BUN 102 H* Creatinine 5.6 H* GFR Calculation 9 Glucose 42 L C-Peptide Calcium 8.5 L Total Bilirubin 0.3 AST 35 ALT 17 Alkaline Phosphatase 162 H Total Protein 7.4 Albumin 3.7 Globulin 3.7 Albumin/Globulin Ratio 1.0 Glucagon Random Cortisol Pending A/P Narrative A/P Narrative: * Hypoglycemia-start D10 drip. Initiate hypoglycemia work-up * Acute on chronic kidney disease-nephrology consulted * Hyperkalemia-management per nephrology * History of hypertension hold antihypertensives until systolics over 140 * GERD continue PPI * Atrial fibrillation currently rate controlled on diltiazem * Hyperlipidemia statin * Anticoagulation on apixaban * DNR Plan * Inpatient admission * Nephrology consult * D10 drip,/hypoglycemia work-up * renal failure management per nephrology * PT OT/nutrition support Time Spent With Patient Time: Total time spent is greater than 50% in coordination of care (as documented) at patient's floor/unit and/or counseling patient: QUALITY Stroke Symptom Onset Unknown: No
[2020-02-10 20:49] LABS: INR 1.4 (0.9-1.1); Prothrombin Time 17.3 sec (11.9-14.5)
[2020-02-10 21:35] LABS: Appearance,Urine CLEAR (Clear); Bilirubin,Urine Negative (Negative); Color,Urine YELLOW; Culture Indicated,Urine No; Glucose,Urine (UA) Negative (Negative); Ketones,Urine Negative (Negative); Leukocyte Esterase,Urine Negative /ug (Negative); Mucus,Urine FEW /hpf; Nitrate,Urine Negative (Negative); Protein,Urine 100 mg/dL (Negative); Specific Gravity,Urine 1.011 (1.000-1.035); Urine Amorphous Crystals FEW /hpf; Urine Blood Negative (Negative); Urine RBC 1 /hpf (0-1); Urine Squamous Epithelial Cell 0 /hpf (0-4); Urine WBC < 1 /hpf (0-4); Urobilinogen,Urine Negative
[2020-02-10] MEDS ORDERED: DILTIAZEM 30 MG TABLET PO SCH (22:00)
[2020-02-10] MEDS ORDERED: BISACODYL 10 MG SUPP.RECT PR PRN (22:32)
[2020-02-10] MEDS ORDERED: ACETAMINOPHEN 325 MG TABLET PO PRN (22:32)
[2020-02-10] MEDS ORDERED: SENNOSIDES/DOCUSATE SODIUM 1 TAB TABLET PO SCH (22:32)
[2020-02-10] MEDS ORDERED: MELATONIN 3 MG TABLET PO PRN (22:32)
[2020-02-10] MEDS ORDERED: POLYETHYLENE GLYCOL 3350 17 GM PACKET PO PRN (22:32)
[2020-02-10] MEDS ORDERED: ONDANSETRON 4 MG ODT TABLET SL PRN (22:32)
[2020-02-10] MEDS ORDERED: ACETAMINOPHEN 650 MG/65 ML BOTTLE IV PRN (22:32)
[2020-02-10] MEDS ORDERED: ONDANSETRON 4 MG/2 ML VIAL IV PRN (22:32)
[2020-02-10] MEDS: HEPARIN 5,000 UNIT/ML VIAL SQ SCH (23:07)
[2020-02-10] MEDS: 0.9 % SODIUM CHLORIDE 10 ML SYRINGE IV SCH (23:07)
[2020-02-10] MEDS: DOCUSATE SODIUM 100 MG CAPSULE PO SCH (23:07)
[2020-02-10] MEDS: DILTIAZEM 30 MG TABLET PO SCH (23:11)
[2020-02-10] MEDS ORDERED: DILTIAZEM 30 MG TABLET ONE (23:18)
[2020-02-10] MEDS: LACTATED RINGERS 1,000 ML IV SCH (23:19)
[2020-02-11] MEDS: DEXTROSE 10 % IN WATER 1,000 ML IV SCH ×5 (00:07→16:08)
[2020-02-11] MEDS: 0.9 % SODIUM CHLORIDE 10 ML SYRINGE IV SCH ×2 (05:59→14:22)
[2020-02-11] MEDS: DILTIAZEM 30 MG TABLET PO SCH ×2 (05:59→14:22)
[2020-02-11] MEDS ORDERED: DILTIAZEM 30 MG TABLET ONE (06:05)
[2020-02-11 07:56] LABS: ALT/SGPT 19 U/L (<40); AST/SGOT 38 U/L (<40); Albumin 3.4 gm/dL (3.2-5.2); Albumin/Globulin Ratio 0.9 (1.0-2.3); Alkaline Phosphatase 156 U/L (39-117); Bilirubin,Direct < 0.2 mg/dL (<0.3); Bilirubin,Total 0.4 mg/dL (0.1-1.0); Blood Urea Nitrogen 101 mg/dL (8-23); Calcium 8.3 mg/dL (8.6-10.4); Carbon Dioxide 11 mmol/L (22-30); Chloride 94 mmol/L (96-108); Globulin 3.7 gm/dL (2.2-3.7); Glomerular Filtration Rate 10; Glucose 174 mg/dL (70-105); Lactate Dehydrogenase 260 U/L (135-225); Phosphorous 6.8 mg/dL (2.5-4.5); Triglycerides 49 mg/dL (<150); Uric Acid 5.6 mg/dL (2.5-8.0)
[2020-02-11] MEDS ORDERED: MULTIVIT,THER IRON,CA,FA & MIN 1 TABLET PO SCH (09:00)
[2020-02-11] MEDS: DOCUSATE SODIUM 100 MG CAPSULE PO SCH (09:10)
[2020-02-11] MEDS: HEPARIN 5,000 UNIT/ML VIAL SQ SCH (09:10)
--- NOTE | 2020-02-11 13:42 | Internal Med Progress Note ---
SUBJECTIVE Subjective Patient information: Note initiated : 02/11/20 at 1:42 pm Service Date, if different from initiated Date: [] Patient: Carlton Cerda 74 y/o M admitted on 02/10/20 for weakness. Chief Complaint: Mr. Cerda is a 74 year old M with a known history of hepatocellular carcinoma/PAF/HTN/DM type II/CKD stage IV was previously on dialysis but stopped due to severe mitral stenosis causing hypotension during dialysis, who presents to the ER with symptoms of low blood sugar/dizziness worsening over the last few days. Patient symptoms started around Sunday with blood sugars dropping to 40s. He called his primary care physician and was advised to continue high sugar foods including juices. However he continues to experience symptoms of hypoglycemia along with worsening dizziness weakness prompting him to present to the ER. Initial work-up in the ER was consistent with blood sugars in 45. Patient was started on D10. He is noted to have worsening renal function with increasing creatinine, potassium 5.2, BUN over 100. Nephrology is consulted and requested hospitalization. Subsequently hospital service was consulted At the time of evaluation patient is alert and respond to commands. He denies diaphoresis, chest pain or shortness of breath but endorses to weakness and dizziness. He has gradually stopped taking his diabetic medications. He denies fever, sick contacts, chills, diarrhea 02/10-blood sugars improved. Off D10 drip. Currently rate controlled. Compl aining of shortness of breath.Hemoglobin 9.2, sodium 126, creatinine 5.4, significant anion gap metabolic acidosis due to uremia, nephrology on board. Continue management per nephrology. Constitutional Vitals: Vital Signs Temp Pulse Resp BP Pulse Ox 97.9 F 56 L 16 146/66 97 02/11/20 12:00 02/11/20 11:01 02/11/20 12:00 02/11/20 12:00 02/11/20 12:00 Period Temp Pulse Resp BP Sys/Matute Pulse Ox Last 24 Hr 97.9 F-98.5 F 46-100 14-24 125-162/63-120 94-100 Intake and Output 02/10/20 02/11/20 02/11/20 21:59 05:59 13:59 Intake Total 1791 689 Output Total 375 700 325 Balance -375 1091 364 Weight 111.13 kg 114.215 kg Alert nonlabored breathing No anxiety No telemetry events Intake & Output: Intake & Output 02/10/20 02/11/20 02/11/20 21:59 05:59 13:59 Intake Total 1791 689 Output Total 375 700 325 Balance -375 1091 364 Weight 111.13 kg 114.215 kg Intake: IV 1791 209 Dextrose 10%-Water IV Solution 1791 209 1,000 ml @ 250 mls/hr IV .Q4H [facility] Rx#:[id number] Oral 480 Output: Void Amount 375 700 325 Other: Meal Lunch Percent of Meal Consumed 75% Feeding Ability Independent Urine Appearance Clear Clear Clear Urine Color Bright Yellow Bright Yellow Bright Yellow Urine Odor Normal Normal OBJ DATA Labs CBC & Chem 7: 02/10/20 18:25 02/11/20 05:31 Labs: Abnormal Lab Results 02/11/20 02/11/20 02/10/20 05:31 05:31 20:25 RBC Hgb Hct MPV Neut % (Auto) Lymph % (Auto) Lymph # (Auto) PT INR Sodium 126 L Potassium Chloride 94 L Carbon Dioxide 11 L Anion Gap 21.0 H BUN 101 H* Creatinine 5.4 H* Glucose 174 H Calcium 8.3 L Phosphorus 6.8 H* GGT 95 H Alkaline Phosphatase 156 H Lactate Dehydrogenase 260 H NT-Pro-B Natriuret Pep 20922.0 H Albumin/Globulin Ratio 0.9 L Urine Protein 100 A Amorphous Crystals Few A Urine Mucus Few A 02/10/20 02/10/20 02/10/20 18:25 18:25 18:25 RBC 3.00 L Hgb 9.2 L Hct 28.0 L MPV 10.6 H Neut % (Auto) 84.0 H Lymph % (Auto) 3.8 L Lymph # (Auto) 0.30 L PT 17.3 H INR 1.4 H Sodium 132 L Potassium 5.2 H Chloride Carbon Dioxide 14 L Anion Gap 19.0 H BUN 102 H* Creatinine 5.6 H* Glucose 42 L Calcium 8.5 L Phosphorus GGT Alkaline Phosphatase 162 H Lactate Dehydrogenase NT-Pro-B Natriuret Pep Albumin/Globulin Ratio Urine Protein Amorphous Crystals Urine Mucus Meds: Medications Acetaminophen (Tylenol) 650 mg PO Q4-6HP PRN; Protocol PRN Reason: Per Pain Protocol/Fever > 101 Bisacodyl (Dulcolax) 10 mg NM Q2-3DAYS PRN PRN Reason: Constipation Diagnostic Test (Pha) (Accu-Chek) 1 each FS Q2 [facility] Last Admin: 02/11/20 12:20 Dose: 1 each Documented by: Diltiazem HCl (Cardizem) 30 mg PO Q8 [facility] Last Admin: 02/11/20 05:59 Dose: 30 mg Documented by: Docusate Sodium (Colace) 100 mg PO BID [facility] Last Admin: 02/11/20 09:10 Dose: Not Given Documented by: Heparin Sodium (Porcine) (Heparin) 5,000 unit SQ Q12 [facility] Last Admin: 02/11/20 09:10 Dose: 5,000 unit Documented by: Dextrose (Dextrose 10%-Water Iv Solution) 1,000 mls @ 250 mls/hr IV .Q4H [facility] Last Admin: 02/11/20 10:48 Dose: Not Given Documented by: Acetaminophen (Ofirmev) 650 mg in 65 mls @ 130 mls/hr IV Q6HP PRN; Protocol PRN Reason: Per Pain Protocol/Fever > 101 Iron Carb/Multivit/Respiratory Therapy Technician/Folic Acid (Multivitamin W/Minerals) 1 tab PO DAILY [facility] Last Admin: 02/11/20 09:10 Dose: 1 tab Documented by: Melatonin (Melatonin 3mg Tablet) 3 mg PO HSP PRN PRN Reason: Insomnia Ondansetron HCl (Zofran Odt) 4 mg SL Q4-6HP PRN; Protocol PRN Reason: Nausea And Vomiting Ondansetron HCl (Zofran) 4 mg IV Q4-6HP PRN; Protocol PRN Reason: Nausea And Vomiting Polyethylene Glycol (Miralax) 17 gm PO DAILYP PRN PRN Reason: Constipation Senna/Docusate Sodium (Senna Plus Tablet) 1 tab PO HS [facility] Last Admin: 02/10/20 23:07 Dose: Not Given Documented by: Sodium Chloride (Saline Flush) 10 ml IV Q8 [facility] Last Admin: 02/11/20 05:59 Dose: Not Given Documented by: A/P Narrative A/P Narrative: * Hypoglycemia-clinically improved on D10 drip. Weaned off. Blood sugars at goal. Continue regular diet, hypoglycemia work-up, random cortisol 15.2 * Acute on chronic kidney disease-creatinine 5.4. Nephrology on board. * Hyperkalemia-potassium down to 4.8 from 5.2 * History of hypertension held antihypertensives until systolics over 140 * GERD continue PPI * Atrial fibrillation currently rate controlled on diltiazem * Hyperlipidemia statin * Anticoagulation on apixaban * DNR Plan * Regular diet * Renal failure management per nephrology * Pre-existing condition management on home medications as above * PT OT/nutrition support Time Spent With Patient Time: Total time spent is greater than 50% in coordination of care (as documented) at patient's floor/unit and/or counseling patient: QUALITY Stroke Symptom Onset Unknown: No
--- NOTE | 2020-02-11 13:58 | Orthopedic Consult Note ---
HPI Data of Consult Primary Care Provider: Laura Walton Consult Narrative Patient Information: Note initiated : 02/11/20 at 1:55 pm Service Date, if different from initiated Date: [] Patient: Carlton Cerda 74 y/o M admitted on 02/10/20 for weakness. 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) Atrial fibrillation with normal ventricular rate (Chronic) Mitral valve stenosis and regurgitation (Chronic) Chronic combined systolic and diastolic CHF, NYHA class 2 (Chronic) Anemia due to stage 5 chronic kidney disease treated with darbepoetin (Chronic) CKD stage G5/A3, GFR <15 and albumin creatinine ratio >300 mg/g (Chronic) CKD stage G4/A3, GFR 15-29 and albumin creatinine ratio >300 mg/g (Chronic) Lung nodule (Chronic) Aspiration into airway (Chronic) Pharyngeal dysphagia (Chronic) GERD (gastroesophageal reflux disease) (Chronic) Anemia in stage 4 chronic kidney disease (Chronic) Secondary hyperparathyroidism of renal origin (Chronic) Numbness (Chronic) Change in nail appearance (Chronic) Adenomatous colon polyp (Chronic) TIA (transient ischemic attack) (Chronic) Shingles (Chronic) director long term care (current) use of anticoagulants (Chronic) History of bleeding ulcers (Chronic) Hepatocellular carcinoma (Chronic) Mitral stenosis (Chronic) AV block, 1st degree (Chronic) Ventricular bigeminy (Chronic) Bradycardia (Chronic) Coronary artery disease (Chronic) Severe obesity (Chronic) Cirrhosis (Chronic) Chronic atrial fibrillation (Chronic) Diabetic foot ulcer (Chronic) Hammer toe of right foot (Chronic) Hammer toe of left foot (Chronic) Ridged nails (Chronic) Changes in skin texture (Chronic) Edema, unspecified (Chronic) Chronic ulcer of great toe of right foot with necrosis of bone (Chronic) Type 2 diabetes mellitus with foot ulcer (Chronic) PAD (peripheral artery disease) (Chronic) Personal history of nicotine dependence (Chronic) snf (current) use of oral hypoglycemic drugs (Chronic) Type 2 diabetes mellitus with diabetic peripheral angiopathy without gangrene (Chronic) Corns and callosities (Chronic) Tinea unguium (Chronic) Obese (Chronic) Ambulates with cane (Chronic) Bruising (Chronic) Intermittent claudication (Chronic) Dyspnea on exertion (Chronic) Loss of taste (Chronic) Myocardial infarction (Chronic) Hypertension (Chronic) Hypercholesterolemia (Chronic) Peripheral vascular disease (Chronic) Non-healing ulcer (Chronic) Osteomyelitis (Chronic) Diabetic ulcer of toe (Chronic) Congestive heart failure (Chronic) Numbness in feet (Chronic) Burning sensation of feet (Chronic) Paresthesia (Chronic) Muscle cramps (Chronic) Leg pain (Chronic) History of acute myocardial infarction (Chronic) Wound abscess (Chronic) Wound cellulitis (Chronic) Chronic kidney disease, stage 3 (Chronic) Preventative health care (Chronic) Diabetic peripheral neuropathy (Chronic) DM (diabetes mellitus), type 2, uncontrolled w/neurologic complication (Chronic) Diabetes mellitus with renal manifestation (Chronic) CKD stage 4 due to type 2 diabetes mellitus (Chronic) Diabetes mellitus with peripheral circulatory disorder (Chronic) Claudication (Chronic) Hypertensive CKD (chronic kidney disease) (Chronic) Paroxysmal atrial fibrillation (Chronic) Hyperlipidemia (Chronic) Severe obesity (Chronic) Nocturia (Chronic) Screening PSA (prostate specific antigen) (Chronic) History of tobacco use (Chronic) Dystrophic nail (Chronic) Onychomycosis (Chronic) Medical History (Updated 02/10/20 @ 20:39 by Arnie Sultana MD) Adenomatous colon polyp (Chronic) Ambulates with cane (Chronic) Anemia due to stage 5 chronic kidney disease treated with darbepoetin (Chronic) Aranesp q 2-4 weeks if HgB <10 gm/dl. Needs O2 carrying capacity to be maximized Anemia in stage 4 chronic kidney disease (Chronic) Serial hemoglobin and hematocrit Iron studies Start JULIAN therapy when and if hemoglobin less than 10 given his cardiac status Aspiration into airway (Chronic) AV block, 1st degree (Chronic) Bradycardia (Chronic) Bruising (Chronic) Burning sensation of feet (Chronic) occasionally Change in nail appearance (Chronic) Changes in skin texture (Chronic) Chronic atrial fibrillation (Chronic) Chronic combined systolic and diastolic CHF, NYHA class 2 (Chronic) Combination ASCAD, HTN and Valvular heart disease. A fib with RVR (Like with HD) caused acute decompensation and resulted in patients informed choice to forgo further dialysis treatments Chronic cough (Resolved) Chronic kidney disease, stage 3 (Chronic) Chronic ulcer of great toe of right foot with necrosis of bone (Chronic) Cirrhosis (Chronic) CKD stage 4 due to type 2 diabetes mellitus (Chronic) Slow progression to a GFR of 11 cc/min. 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 use of apixaban as an anticoagulant makes renal biopsy difficult logistically. CKD stage G5/A3, GFR <15 and albumin creatinine ratio >300 mg/g (Chronic) Slow progression till 04/2019 when cholecystitis and ARF. Peak SCr 8, 2 weeks HD but could not tolerate. Stopped HD 06/02/2019 and conservative Tx thereafter, "baseline SCr was 4.5 mg/dl" Heavy proteinuria and well-controlled hemoglobin A1 C's make me think that this is not diabetic nephropathy but perhaps related to congestive heart failure or any of the other age related diseases such as a monoclonal related process, membranous as he has had prior adenocarcinoma of his liver or FSGN. We will treat conservatively he has not tolerated RAASI in the past due to hyperkalemia, so using diltiazem for its anti-proteinuric effects and for rate control with A. fib Claudication (Chronic) Corns and callosities (Chronic) Coronary artery disease (Chronic) Diabetes mellitus with peripheral circulatory disorder (Chronic) Diabetes mellitus with renal manifestation (Chronic) Diabetic foot ulcer (Chronic) Right Diabetic peripheral neuropathy (Chronic) DM (diabetes mellitus), type 2, uncontrolled w/neurologic complication (Chronic) and vascular complications Dyspnea on exertion (Chronic) Dystrophic nail (Chronic) Edema, unspecified (Chronic) GERD (gastroesophageal reflux disease) (Chronic) Hammer toe of left foot (Chronic) Hammer toe of right foot (Chronic) Hepatocellular carcinoma (Chronic) History of acute myocardial infarction (Chronic) History of bleeding ulcers (Chronic) History of tobacco use (Chronic) Hypercholesterolemia (Chronic) Hyperlipidemia (Chronic) Hypertension (Chronic) Hypertensive CKD (chronic kidney disease) (Chronic) Intermittent claudication (Chronic) Leg pain (Chronic) snf (current) use of anticoagulants (Chronic) snf (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 Wth mild on resting ECHO, significant on HD with rapid AFIb leading to Muscle cramps (Chronic) Myocardial infarction (Chronic) Nocturia (Chronic) Non-healing ulcer (Chronic) Numbness (Chronic) Numbness in feet (Chronic) sometimes Obese (Chronic) Onychomycosis (Chronic) Osteomyelitis (Chronic) Right 3rd Toe PAD (peripheral artery disease) (Chronic) Paresthesia (Chronic) Paroxysmal atrial fibrillation (Chronic) Peripheral vascular disease (Chronic) Personal history of nicotine dependence (Chronic) Pharyngeal dysphagia (Chronic) Preventative health care (Chronic) Ridged nails (Chronic) Screening PSA (prostate specific antigen) (Chronic) Secondary hyperparathyroidism of renal origin (Chronic) Monitor PTH on calcitriol 0.25 ug per day until 06/05/2019 when I held his calcitriol as his PTH was now less than 50 Severe obesity (Chronic) Severe obesity (Chronic) Shingles (Chronic) TIA (transient ischemic attack) (Chronic) Tinea unguium (Chronic) Type 2 diabetes mellitus with diabetic peripheral angiopathy without gangrene (Chronic) Type 2 diabetes mellitus with foot ulcer (Chronic) Ventricular bigeminy (Chronic) 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) While he has significant proteinuria his hemoglobin A1c is well controlled as has been his diabetes and 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 that at this point will treat with diltiazem for anti- proteinuric effects and he is anticoagulated for his atrial fibrillation Wound abscess (Chronic) Wound cellulitis (Chronic) Surgical History History of amputation of toe (Chronic) Right 2nd Toe History of bilateral cataract extraction (Chronic) History of colonoscopy (Chronic 05/17/10) History of coronary artery bypass graft (Chronic) History of detached retina repair (Chronic) History of open heart surgery (Chronic ~1980) Bypass History of oral surgery (Chronic) History of surgery (Acute) per patient liver cancer 2017 History of tonsillectomy (Chronic) Family History Mother Heart disease Kidney disease COPD (chronic obstructive pulmonary disease) Father Diabetes Social History marital status: smoking status: Never smoker smoking status start date: 04/16/06 smoking status stop date: 04/16/78 alcohol intake frequency: does not drink substance use type: does not use MEDS/ALLERGIES Home Medications and Allergies Home Medications Medication Instructions Recorded Confirmed Type atorvastatin 20 mg tablet 20 mg PO HS 02/08/16 02/11/20 History blood sugar diagnostic 02/08/16 02/10/20 History apixaban 2.5 mg tablet 2.5 mg PO BID 30 Days #60 tab 02/15/17 02/11/20 History metoprolol tartrate 100 mg tablet 100 mg PO BID tab 05/01/19 02/11/20 History diltiazem HCl [Cartia XT] 180 mg PO QDAY 12/12/19 02/11/20 History pantoprazole 20 mg PO QDAY 12/12/19 02/11/20 History furosemide 20 mg PO BID 01/13/20 02/11/20 History C,E,zinc,copper [id number] 1 cap PO DAILY 02/11/20 02/11/20 History [Ocuvite Adult 50 Plus] [id number] K 1 tab PO DAILY 02/11/20 02/11/20 History [Adults Multivitamin] Allergies Allergy/AdvReac Type Severity Reaction Status Date / Time No Known Drug Allergies Allergy Verified 01/13/20 15:44 Physical Examination Ankle & Foot left: Foot appearance: swelling, erythema and other (Blister eschar dorsal interphalangeal joint left second digit) Foot swelling: dorsal, plantar, lateral and toes Tenderness with palpation: none Ankle pain worse with weight bearing: No Ankle pain relieved by non-weight bearing: No Foot pain worse with weight bearing: No Foot pain relieved by non-weight bearing: No Tingling/Numbness: foot A/P Time Spent With Patient Time: Total time spent is greater than 50% in coordination of care (as documented) at patient's floor/unit and/or counseling patient: Blister eschar dorsal interphalangeal joint left second digit No dressings required, will follow up with this as it is relevance to shoe irritation outpatient.
--- NOTE | 2020-02-11 17:15 | Discharge Summary ---
Discharge Provider Provider Patient information: Note initiated : 02/11/20 at 5:15 pm Service Date, if different from initiated Date: [] Patient: Carlton Cerda 74 y/o M admitted on 02/10/20 for weakness. Discharge Diagnosis * Hypoglycemia-clinically improved on D10 drip. Weaned off. Blood sugars at goal. * Acute on chronic kidney disease-creatinine 5.4. Managed by nephrology * Hyperkalemia-potassium down to 4.8 from 5.2. Managed by nephrology * History of hypertension restart home meds including Cardizem/metoprolol * GERD continue PPI * Atrial fibrillation currently rate controlled on diltiazem/metoprolol * Hyperlipidemia statin * Anticoagulation on apixaban Hospital Course Mr. Cerda is a 74 year old M with a known history of hepatocellular carcinoma/PAF/HTN/DM type II/CKD stage IV was previously on dialysis but stopped due to severe mitral stenosis causing hypotension during dialysis, who presents to the ER with symptoms of low blood sugar/dizziness worsening over the last few days. Patient symptoms started around Sunday with blood sugars dropping to 40s. He called his primary care physician and was advised to continue high sugar foods including juices. However he continues to experience symptoms of hypoglycemia along with worsening dizziness weakness prompting him to present to the ER. Initial work-up in the ER was consistent with blood sugars in 45. Patient was started on D10. He is noted to have worsening renal function with increasing creatinine, potassium 5.2, BUN over 100. Nephrology is consulted and requested hospitalization. Subsequently hospital service was consulted At the time of evaluation patient is alert and respond to commands. He denies diaphoresis, chest pain or shortness of breath but endorses to weakness and dizziness. He has gradually stopped taking his diabetic medications. He denies fever, sick contacts, chills, diarrhea 02/10-blood sugars improved. Off D10 drip. Currently rate controlled. Complaining of shortness of breath.Hemoglobin 9.2, sodium 126, creatinine 5.4, significant anion gap metabolic acidosis due to uremia, nephrology on board. Continue management per nephrology. Later in the evening stable labs and hemodynamics. Patient requesting discharge. Nephrology recommends discharging home with advised to follow-up with nephrology as outpatient. Discharge advised as below Date of admission: 02/10/20 22:18 Discharge date: 02/11/20 Primary care physician: Laura Walton Consults: 02/10/20 20:35 Consult to Physician [CONS] Stat Comment: Consulting Provider: Nish Kahn Reason For Exam: Physician to Consult 02/11/20 10:05 Consult to Physician [CONS] Routine Comment: examine feet bilaterally Consulting Provider: Mason Kumar Reason For Exam: Physician to Consult Discharge Meds Discharge Medications Home Medications atorvastatin 20 mg tablet 20 mg PO HS 02/08/16 [History Confirmed 02/11/20 Last Taken 01/18/20] blood sugar diagnostic 02/08/16 [History Confirmed 02/10/20 Last Taken Unknown] apixaban 2.5 mg tablet 2.5 mg PO BID 30 Days #60 tab 02/15/17 [History Confirmed 02/11/20 Last Taken 01/19/20 06:00] metoprolol tartrate 100 mg tablet 100 mg PO BID tab 05/01/19 [History Confirmed 02/11/20 Last Taken 01/18/20] diltiazem HCl [Cartia XT] 180 mg PO QDAY 12/12/19 [History Confirmed 02/11/20 Last Taken 01/19/20 06:00] pantoprazole 20 mg PO QDAY 12/12/19 [History Confirmed 02/11/20 Last Taken Unknown] furosemide 20 mg PO BID 01/13/20 [History Confirmed 02/11/20 Last Taken 01/18/20] Adults Multivitamin 1 tab PO DAILY 02/11/20 [History Confirmed 02/11/20 Last Taken Unknown] Ocuvite Adult 50 Plus 1 cap PO DAILY 02/11/20 [History Confirmed 02/11/20 Last Taken Unknown] COURSE Hospital Course Hospital course: . Discharge diagnosis: . Time Spent with Patient Time attestation: Total time spent providing and/or coordinating discharge services: EXAM Constitutional Vitals: Temp Pulse Resp BP Pulse Ox 98.3 F 73 15 148/76 97 02/11/20 16:00 02/11/20 16:02 02/11/20 16:02 02/11/20 16:02 02/11/20 16:02 Discharge Data Data Completed and Pending Labs on day of discharge: Labs from last 24 hours 02/11/20 02/11/20 02/10/20 05:31 05:31 20:25 WBC RBC Hgb Hct MCV MCH MCHC RDW Plt Count MPV Neut % (Auto) Lymph % (Auto) [place] % (Auto) Eos % (Auto) Baso % (Auto) Lymph # (Auto) [place] # (Auto) Eos # (Auto) Baso # (Auto) Absolute Neutrophils PT INR Sodium 126 L Potassium 4.8 Chloride 94 L Carbon Dioxide 11 L Anion Gap 21.0 H BUN 101 H* Creatinine 5.4 H* GFR Calculation 10 Glucose 174 H C-Peptide Uric Acid 5.6 Calcium 8.3 L Phosphorus 6.8 H* Magnesium 2.4 Total Bilirubin 0.4 Direct Bilirubin < 0.2 GGT 95 H AST 38 ALT 19 Alkaline Phosphatase 156 H Lactate Dehydrogenase 260 H NT-Pro-B Natriuret Pep 49356.0 H Total Protein 7.1 Albumin 3.4 Globulin 3.7 Albumin/Globulin Ratio 0.9 L Triglycerides 49 Glucagon Random Cortisol Urine Color Yellow Urine Appearance Clear Urine pH 5.0 Ur Specific [place] 1.011 Urine Protein 100 A Urine Glucose (UA) Negative Urine Ketones Negative Urine Occult Blood Negative Urine Nitrate Negative Urine Bilirubin Negative Urine Urobilinogen Negative Ur Leukocyte Esterase Negative Urine RBC 1 Urine WBC < 1 Ur Squamous Epith Cells 0 Amorphous Crystals Few A Urine Bacteria None Urine Mucus Few A Ur Culture Indicated? No 02/10/20 02/10/20 02/10/20 18:25 18:25 18:25 WBC RBC Hgb Hct MCV MCH MCHC RDW Plt Count MPV Neut % (Auto) Lymph % (Auto) [place] % (Auto) Eos % (Auto) Baso % (Auto) Lymph # (Auto) [place] # (Auto) Eos # (Auto) Baso # (Auto) Absolute Neutrophils PT 17.3 H INR 1.4 H Sodium Potassium Chloride Carbon Dioxide Anion Gap BUN Creatinine GFR Calculation Glucose C-Peptide Pending Uric Acid Calcium Phosphorus Magnesium Total Bilirubin Direct Bilirubin GGT AST ALT Alkaline Phosphatase Lactate Dehydrogenase NT-Pro-B Natriuret Pep Total Protein Albumin Globulin Albumin/Globulin Ratio Triglycerides Glucagon Pending Random Cortisol Urine Color Urine Appearance Urine pH Ur Specific [place] Urine Protein Urine Glucose (UA) Urine Ketones Urine Occult Blood Urine Nitrate Urine Bilirubin Urine Urobilinogen Ur Leukocyte Esterase Urine RBC Urine WBC Ur Squamous Epith Cells Amorphous Crystals Urine Bacteria Urine Mucus Ur Culture Indicated? 02/10/20 02/10/20 02/10/20 18:25 18:25 18:25 WBC 8.0 RBC 3.00 L Hgb 9.2 L Hct 28.0 L MCV 93.3 MCH 30.7 MCHC 32.9 RDW 14.5 Plt Count 184 MPV 10.6 H Neut % (Auto) 84.0 H Lymph % (Auto) 3.8 L [place] % (Auto) 9.6 Eos % (Auto) 2.3 Baso % (Auto) 0.3 Lymph # (Auto) 0.30 L [place] # (Auto) 0.77 Eos # (Auto) 0.18 Baso # (Auto) 0.02 Absolute Neutrophils 6.73 PT INR Sodium 132 L Potassium 5.2 H Chloride 99 Carbon Dioxide 14 L Anion Gap 19.0 H BUN 102 H* Creatinine 5.6 H* GFR Calculation 9 Glucose 42 L C-Peptide Uric Acid Calcium 8.5 L Phosphorus Magnesium Total Bilirubin 0.3 Direct Bilirubin GGT AST 35 ALT 17 Alkaline Phosphatase 162 H Lactate Dehydrogenase NT-Pro-B Natriuret Pep Total Protein 7.4 Albumin 3.7 Globulin 3.7 Albumin/Globulin Ratio 1.0 Triglycerides Glucagon Random Cortisol 15.2 Urine Color Urine Appearance Urine pH Ur Specific [place] Urine Protein Urine Glucose (UA) Urine Ketones Urine Occult Blood Urine Nitrate Urine Bilirubin Urine Urobilinogen Ur Leukocyte Esterase Urine RBC Urine WBC Ur Squamous Epith Cells Amorphous Crystals Urine Bacteria Urine Mucus Ur Culture Indicated? Discharge Plan Patient/Caregiver Discharge Instructions Activity: increase activity as tolerated Diet: Renal Instructions: Acute Kidney Injury (DC), Chronic Kidney Disease (DC), Hypoglycemia in a Person with Diabetes (DC), Hyperkalemia (DC) Activity Restrictions/Additional Instructions: Follow up with Nephrology in 5 days Discontinue glipizide If you have any questions or problems, call Dr Cho's office. Prescriptions: Continued atorvastatin 20 mg tablet 20 mg PO HS RF: 0 (DME) blood sugar diagnostic [Contour Test Strips] strip 1 dose .ROUTE .MEDSUPPLY RF: 0 apixaban 2.5 mg tablet 2.5 mg PO BID 30 Days Qty: 60 RF: 0 metoprolol tartrate 100 mg tablet 100 mg PO BID RF: 0 diltiazem HCl [Cartia XT] 180 mg Capsule,Extended Release 24hr 180 mg PO QDAY RF: 0 pantoprazole 20 mg Tablet,Delayed Release (Dr/Ec) 20 mg PO QDAY RF: 0 furosemide 20 mg tablet 20 mg PO BID RF: 0 Ocuvite Adult 50 Plus 250-5-1 mg Capsule 1 cap PO DAILY RF: 0 Adults Multivitamin 18 mg iron-400 mcg-25 mcg Tablet 1 tab PO DAILY RF: 0 Follow Up Plan Follow up with: Hector Cho MD [Physician] - (Call on to set up an appointment with Dr. Cho in 3 days.) Laura Walton MD [Primary Care Provider] - (Call morning for an appointment in 10-14 days.) Patient Disposition: Home, Self-Care Rehab Potential: Fair I certify that the patient requires SNF services: No Overall status at discharge: patient is progressing back to baseline Discharge Date/Time: 02/11/20 18:00 Discharge Orders: Discharge Order (Routine); Ordered 02/11/20 Ordered By: Nish Kahn
== END 2020-02-11 18:00 | disposition home or self-care (01) | DRG 638 ==
LOC: ED 18:00 → ICU 22:18
PROVIDERS: ADMIT Internal Medicine; ATTEND Internal Medicine

== ENCOUNTER 2020-04-10 09:45 | Inpatient (IN) ==
[2020-04-10] MEDS ORDERED: 0.9 % SODIUM CHLORIDE 1,000 ML IV ONE (10:03)
[2020-04-10] MEDS ORDERED: ONDANSETRON 4 MG/2 ML VIAL IV ONE (10:03)
--- NOTE | 2020-04-10 10:21 | Emergency Department Note ---
Weakness HPI General Chief complaint: Stroke Symptoms Stated complaint: failure to thrive Time Seen by Provider: 04/10/20 10:02 Source: patient and EMS Mode of arrival: EMS Limitations: altered mental status History of Present Illness HPI Narrative: 74-year-old male comes in for weakness and failure to thrive today. He is actually been trending down over the last week-last normal was 1 week ago. 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 He is on Eliquis for atrial fibrillation and has multiple other comorbidities including previous TIA. Today he is confused and perseverating saying the same words for 5 times-repeating your questions instead of answering them but he can follow commands. I called his and discussed with her as I am unable to get meaningful review of systems or history from him. It does not sound like he has been having respiratory issues at home nor fever. Urination has been infrequent. He has been sleeping a lot I reviewed the last provider note from 03/22/2020 Dr. Cho-the patient is on sodium bicarbonate for chronic metabolic acidosis. He did not take his sodium bicarbonate this morning Related Data Home Medications Medication Instructions Recorded Confirmed atorvastatin 20 mg tablet 20 mg PO HS 02/08/16 04/10/20 blood sugar diagnostic 02/08/16 02/17/20 apixaban 2.5 mg tablet 2.5 mg PO BID 30 Days #60 tab 02/15/17 04/10/20 furosemide 20 mg PO DAILY 01/13/20 04/10/20 Adults Multivitamin 1 tab PO DAILY 02/11/20 04/10/20 Ocuvite Adult 50 Plus 1 cap PO DAILY 02/11/20 04/10/20 metoprolol tartrate 100 mg tablet 100 mg PO QDAY tab 02/17/20 04/10/20 acetazolamide 250 mg PO BID 04/10/20 04/10/20 acidophilus-pectin, citrus 1 cap PO DAILY 04/10/20 04/10/20 [Acidophilus Probiotic] bimatoprost [Lumigan] 1 drp OPHTHALMIC (EYE) QPM 04/10/20 04/10/20 brimonidine 1 drp OPHTHALMIC (EYE) TID 04/10/20 04/10/20 metoprolol tartrate 50 mg PO HS 04/10/20 04/10/20 timolol 1 drp OPHTHALMIC (EYE) BID 04/10/20 04/10/20 Previous Rx's Medication Instructions Recorded sodium bicarbonate 650 mg tablet 650 mg PO TID #100 tab 02/17/20 diltiazem HCl 180 mg 180 mg PO QDAY #30 cap 02/20/20 capsule,extended release 24 hr Allergies Allergy/AdvReac Type Severity Reaction Status Date / Time No Known Drug Allergies Allergy Verified 02/17/20 15:12 Review of Systems ROS ROS Narrative: Narrative: Limitations: ROS unobtainable due to patients medical condition [facility] Narrative Patient History Narrative: Narrative: Medical/Surgical/Family History All Active Problems (Updated 04/10/20 @ 14:17 by Lj Almendarez MD) Metabolic acidosis (Acute) Acute kidney failure (Acute) Acute hypernatremia (Acute) Metabolic acidosis with increased anion gap and reduced excretion of inorganic acids (Acute) Cellulitis (Acute) Hypoglycemia (Acute) 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) Atrial fibrillation with normal ventricular rate (Chronic) Mitral valve stenosis and regurgitation (Chronic) Chronic combined systolic and diastolic CHF, NYHA class 2 (Chronic) Anemia due to stage 5 chronic kidney disease treated with darbepoetin (Chronic) CKD stage G5/A3, GFR <15 and albumin creatinine ratio >300 mg/g (Chronic) CKD stage G4/A3, GFR 15-29 and albumin creatinine ratio >300 mg/g (Chronic) Lung nodule (Chronic) Aspiration into airway (Chronic) Pharyngeal dysphagia (Chronic) GERD (gastroesophageal reflux disease) (Chronic) Anemia in stage 4 chronic kidney disease (Chronic) Secondary hyperparathyroidism of renal origin (Chronic) Numbness (Chronic) Change in nail appearance (Chronic) Adenomatous colon polyp (Chronic) TIA (transient ischemic attack) (Chronic) Shingles (Chronic) 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) History of bleeding ulcers (Chronic) Hepatocellular carcinoma (Chronic) Mitral stenosis (Chronic) AV block, 1st degree (Chronic) Ventricular bigeminy (Chronic) Bradycardia (Chronic) Coronary artery disease (Chronic) Severe obesity (Chronic) Cirrhosis (Chronic) Chronic atrial fibrillation (Chronic) Diabetic foot ulcer (Chronic) Hammer toe of right foot (Chronic) Hammer toe of left foot (Chronic) Ridged nails (Chronic) Changes in skin texture (Chronic) Edema, unspecified (Chronic) Chronic ulcer of great toe of right foot with necrosis of bone (Chronic) Type 2 diabetes mellitus with foot ulcer (Chronic) PAD (peripheral artery disease) (Chronic) Personal history of nicotine dependence (Chronic) MCFP (current) use of oral hypoglycemic drugs (Chronic) Type 2 diabetes mellitus with diabetic peripheral angiopathy without gangrene (Chronic) Corns and callosities (Chronic) Tinea unguium (Chronic) Obese (Chronic) Ambulates with cane (Chronic) Bruising (Chronic) Intermittent claudication (Chronic) Dyspnea on exertion (Chronic) Loss of taste (Chronic) Myocardial infarction (Chronic) Hypertension (Chronic) Hypercholesterolemia (Chronic) Peripheral vascular disease (Chronic) Non-healing ulcer (Chronic) Osteomyelitis (Chronic) Diabetic ulcer of toe (Chronic) Congestive heart failure (Chronic) Numbness in feet (Chronic) Burning sensation of feet (Chronic) Paresthesia (Chronic) Muscle cramps (Chronic) Leg pain (Chronic) History of acute myocardial infarction (Chronic) Wound abscess (Chronic) Wound cellulitis (Chronic) Chronic kidney disease, stage 3 (Chronic) Preventative health care (Chronic) Diabetic peripheral neuropathy (Chronic) DM (diabetes mellitus), type 2, uncontrolled w/neurologic complication (Chronic) Diabetes mellitus with renal manifestation (Chronic) CKD stage 4 due to type 2 diabetes mellitus (Chronic) Diabetes mellitus with peripheral circulatory disorder (Chronic) Claudication (Chronic) Hypertensive CKD (chronic kidney disease) (Chronic) Paroxysmal atrial fibrillation (Chronic) Hyperlipidemia (Chronic) Severe obesity (Chronic) Nocturia (Chronic) Screening PSA (prostate specific antigen) (Chronic) History of tobacco use (Chronic) Dystrophic nail (Chronic) Onychomycosis (Chronic) Medical History Adenomatous colon polyp (Chronic) Ambulates with cane (Chronic) Anemia due to stage 5 chronic kidney disease treated with darbepoetin (Chronic) Aranesp q 2-4 weeks if HgB <10 gm/dl. Needs O2 carrying capacity to be maximized Anemia in stage 4 chronic kidney disease (Chronic) Serial hemoglobin and hematocrit Iron studies Start JULIAN therapy when and if hemoglobin less than 10 given his cardiac status Aspiration into airway (Chronic) AV block, 1st degree (Chronic) Bradycardia (Chronic) Bruising (Chronic) Burning sensation of feet (Chronic) occasionally Change in nail appearance (Chronic) Changes in skin texture (Chronic) Chronic atrial fibrillation (Chronic) Chronic combined systolic and diastolic CHF, NYHA class 2 (Chronic) Combination ASCAD, HTN and Valvular heart disease. A fib with RVR (Like with HD) caused acute decompensation and resulted in patients informed choice to forgo further dialysis treatments Chronic cough (Resolved) Chronic kidney disease, stage 3 (Chronic) Chronic ulcer of great toe of right foot with necrosis of bone (Chronic) Cirrhosis (Chronic) CKD stage 4 due to type 2 diabetes mellitus (Chronic) Slow progression to a GFR of 11 cc/min. 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 use of apixaban as an anticoagulant makes renal biopsy difficult logistically. CKD stage G5/A3, GFR <15 and albumin creatinine ratio >300 mg/g (Chronic) Slow progression till 04/2019 when cholecystitis and ARF. Peak SCr 8, 2 weeks HD but could not tolerate. Stopped HD 06/02/2019 and conservative Tx thereafter, "baseline SCr was 4.5 mg/dl" Heavy proteinuria and well-controlled hemoglobin A1 C's make me think that this is not diabetic nephropathy but perhaps related to congestive heart failure or any of the other age related diseases such as a monoclonal related process, membranous as he has had prior adenocarcinoma of his liver or FSGN. We will treat conservatively he has not tolerated RAASI in the past due to hyperkalemia, so using diltiazem for its anti-proteinuric effects and for rate control with A. fib Claudication (Chronic) Corns and callosities (Chronic) Coronary artery disease (Chronic) Diabetes mellitus with peripheral circulatory disorder (Chronic) Diabetes mellitus with renal manifestation (Chronic) Diabetic foot ulcer (Chronic) Right Diabetic peripheral neuropathy (Chronic) DM (diabetes mellitus), type 2, uncontrolled w/neurologic complication (Chronic) and vascular complications Dyspnea on exertion (Chronic) Dystrophic nail (Chronic) Edema, unspecified (Chronic) GERD (gastroesophageal reflux disease) (Chronic) Hammer toe of left foot (Chronic) Hammer toe of right foot (Chronic) Hepatocellular carcinoma (Chronic) History of acute myocardial infarction (Chronic) History of bleeding ulcers (Chronic) History of tobacco use (Chronic) Hypercholesterolemia (Chronic) Hyperlipidemia (Chronic) Hypertension (Chronic) Hypertensive CKD (chronic kidney disease) (Chronic) Intermittent claudication (Chronic) Leg pain (Chronic) MCFP (current) use of anticoagulants (Chronic) MCFP (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 Wth mild on resting ECHO, significant on HD with rapid AFIb leading to Muscle cramps (Chronic) Myocardial infarction (Chronic) Nocturia (Chronic) Non-healing ulcer (Chronic) Numbness (Chronic) Numbness in feet (Chronic) sometimes Obese (Chronic) Onychomycosis (Chronic) Osteomyelitis (Chronic) Right 3rd Toe PAD (peripheral artery disease) (Chronic) Paresthesia (Chronic) Paroxysmal atrial fibrillation (Chronic) Peripheral vascular disease (Chronic) Personal history of nicotine dependence (Chronic) Pharyngeal dysphagia (Chronic) Preventative health care (Chronic) Ridged nails (Chronic) Screening PSA (prostate specific antigen) (Chronic) Secondary hyperparathyroidism of renal origin (Chronic) Monitor PTH on calcitriol 0.25 ug per day until 06/05/2019 when I held his calcitriol as his PTH was now less than 50 Severe obesity (Chronic) Severe obesity (Chronic) Shingles (Chronic) TIA (transient ischemic attack) (Chronic) Tinea unguium (Chronic) Type 2 diabetes mellitus with diabetic peripheral angiopathy without gangrene (Chronic) Type 2 diabetes mellitus with foot ulcer (Chronic) Ventricular bigeminy (Chronic) 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) While he has significant proteinuria his hemoglobin A1c is well controlled as has been his diabetes and 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 that at this point will treat with diltiazem for anti-proteinuric effects and he is anticoagulated for his atrial fibrillation Wound abscess (Chronic) Wound cellulitis (Chronic) Surgical History History of amputation of toe (Chronic) Right 2nd Toe History of bilateral cataract extraction (Chronic) History of colonoscopy (Chronic 05/17/10) History of coronary artery bypass graft (Chronic) History of detached retina repair (Chronic) History of open heart surgery (Chronic ~1980) Bypass History of oral surgery (Chronic) History of surgery (Acute) per patient liver cancer 2017 History of tonsillectomy (Chronic) Family History Mother Heart disease Kidney disease COPD (chronic obstructive pulmonary disease) Father Diabetes Social History Smoking Status: Never smoker Alcohol Intake Frequency: does not drink Substance Use: does not use Exam Narrative Narrative: Narrative: No acute distress resting. Normocephalic atraumatic. He is wearing an eye patch over his left eye. He is alert but confused. conjunctive are clear sclerae white nonicteric. Pupils are equal and reactive- but he is not focusing. Extraocular movements do look like he is able to move those okay. However his face is asymmetrical and is unable to smile on the left side. His tongue deviates to the right. Mildly dysarthric but understandable. His speech however is perseverating-he will repeat your question for 5 times but he has trouble answering it. Sort of word salad answers at times. He is able to move his head and neck normally. Bilateral career orientation teacher are normal. He is globally weak. I do not see a tremor. Neck is supple without lymphadenopathy or thyromegaly. Heart is regular rate and rhythm no murmur appreciated. Lungs are with subtle crackles and wheezes. However oxygen saturations are normal. Abdomen is soft nontender nondistended. I do not see pedal edema. General Limitations: altered mental status Course Vital Signs Vital signs: Vital Signs Temperature 97.5 F 04/10/20 09:55 Pulse Rate 89 04/10/20 09:55 Respiratory Rate 31 H 04/10/20 09:55 Blood Pressure 119/85 04/10/20 09:55 Pulse Oximetry (%) 100 04/10/20 09:55 Temperature 97.5 F 04/10/20 09:55 Pulse Rate 96 H 04/10/20 14:49 Respiratory Rate 25 H 04/10/20 14:49 Blood Pressure 149/86 04/10/20 14:49 Pulse Oximetry (%) 100 04/10/20 14:49 MDM MDM Narrative Medical decision making narrative: Narrative: Concern for subacute CVA plus or minus respiratory issues. He also is having some failure to thrive over the last month or more-this with his ongoing ocular issue with left eye replacement lens been displaced. Surgery is upcoming. He is normoxic with 100% on room air Anyways we will work him up for infectious metabolic cardiovascular another disease processes with CT scan of the head chest x-ray EKG and laboratory. Start IV fluids and oxygen support. CT scan of the head was negative. Lactic acid was negative and he does not have leukocytosis nor fever. He was feeling quite anxious and agitated wanting to get out of bed and so we will give him some Ativan. Troponin was elevated at 0.08 but this is likely from his chronic kidney failure. He is not complaining of chest pain at this time, EKG is unrevealing. Does look like he had a troponin of 0.04, 3 years ago. Alysis [id number] dipstick shows large amount of blood with gravity 1.020 trace ketones We did get initially arterial blood gas which showed a pH of 7.18 with a PCO2 of 13 and a PO2 146 on reviewing his chart I note that this is actually likely to be true as he has a chronic metabolic acidosis and the patient refuses to ever go on dialysis again. He has prescription for daily sodium bicarbonate which he has not taken today. 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 Patient will need to come in the hospital for this. Dr. Cho also informs me the pat reuben has significant cardiovascular disease which limits our ability to dialyze anyway. so he will be medical management only We got up another blood gas after starting the bicarb drip. He was still markedly acidotic-his kidney doctor, Dr. Cho came in and saw the patient and advised us to advance his bicarbonate to 250 mL/h. I discussed the situation with his as well-he is DNR/DNI and does not want any heroic measures. We will admit him to the ICU and do what we can medically. Discussed with our hospitalist Dr. Guerrier. He agreed to accept the patient for further care and evaluation in the hospital Lab Data Lab results reviewed: Yes I reviewed the patient's lab results. Result diagrams: 04/10/20 10:08 04/10/20 10:08 Labs: Lab Results 04/10/20 04/10/20 04/10/20 Range/Units 10:08 10:08 10:08 WBC 10.0 (4.5-11.0) K/mcL RBC 3.72 L (4.50-5.90) M/mcL Hgb 11.6 L (13.5-16.5) g/dL Hct 35.1 L (41.0-55.0) % MCV 94.4 (80.0-100.0) fL MCH 31.2 (26.0-34.0) pg MCHC 33.0 (31.0-36.0) g/dL RDW 16.0 H (11.5-14.5) % Plt Count 201 (140-440) K/mcL MPV 11.1 H (7.4-10.4) fL Neut % (Auto) 79.2 H (38.0-78.0) % Lymph % (Auto) 7.6 L (15.0-49.0) % Phillips % (Auto) 9.2 (1.0-12.0) % Eos % (Auto) 3.4 (0.0-7.0) % Baso % (Auto) 0.6 (0.0-2.0) % Lymph # (Auto) 0.76 L (1.50-4.80) K/mcL Phillips # (Auto) 0.92 H (0.10-0.90) K/mcL Eos # (Auto) 0.34 (0.00-0.70) K/mcL Baso # (Auto) 0.06 (0.00-0.20) K/mcL Absolute Neutrophils 7.95 (1.80-8.00) K/mcL VBG Lactic Acid (0.5-2.0) mmol/L Sodium 148 H (133-145) mmol/L Potassium 3.5 (3.3-5.1) mmol/L Chloride 118 H (96-108) mmol/L Carbon Dioxide 7 L* (22-30) mmol/L Anion Gap 23.0 H (8.0-16.0) BUN 159 H* (8-23) mg/dL Creatinine 4.4 H (0.7-1.2) mg/dL GFR Calculation 12 Glucose 138 H (70-105) mg/dL Calcium 9.1 (8.6-10.4) mg/dL Magnesium 2.6 H (1.6-2.5) mg/dL Total Bilirubin 0.5 (0.1-1.0) mg/dL AST 23 (<40) U/L ALT 13 (<40) U/L Alkaline Phosphatase 133 H (39-117) U/L Troponin T 0.08 H* (<0.03) ng/mL C-Reactive Protein 0.50 (0.03-0.80) mg/dL NT-Pro-B Natriuret Pep 28450.0 H (<450.0) pg/mL Total Protein 7.1 (5.9-8.4) gm/dL Albumin 4.1 (3.2-5.2) gm/dL Globulin 3.0 (2.2-3.7) gm/dL Albumin/Globulin Ratio 1.4 (1.0-2.3) TSH 1.44 (0.27-5.01) uIU/mL 04/10/20 Range/Units 10:20 WBC (4.5-11.0) K/mcL RBC (4.50-5.90) M/mcL Hgb (13.5-16.5) g/dL Hct (41.0-55.0) % MCV (80.0-100.0) fL MCH (26.0-34.0) pg MCHC (31.0-36.0) g/dL RDW (11.5-14.5) % Plt Count (140-440) K/mcL MPV (7.4-10.4) fL Neut % (Auto) (38.0-78.0) % Lymph % (Auto) (15.0-49.0) % Phillips % (Auto) (1.0-12.0) % Eos % (Auto) (0.0-7.0) % Baso % (Auto) (0.0-2.0) % Lymph # (Auto) (1.50-4.80) K/mcL Phillips # (Auto) (0.10-0.90) K/mcL Eos # (Auto) (0.00-0.70) K/mcL Baso # (Auto) (0.00-0.20) K/mcL Absolute Neutrophils (1.80-8.00) K/mcL VBG Lactic Acid 1.0 (0.5-2.0) mmol/L Sodium (133-145) mmol/L Potassium (3.3-5.1) mmol/L Chloride (96-108) mmol/L Carbon Dioxide (22-30) mmol/L Anion Gap (8.0-16.0) BUN (8-23) mg/dL Creatinine (0.7-1.2) mg/dL GFR Calculation Glucose (70-105) mg/dL Calcium (8.6-10.4) mg/dL Magnesium (1.6-2.5) mg/dL Total Bilirubin (0.1-1.0) mg/dL AST (<40) U/L ALT (<40) U/L Alkaline Phosphatase (39-117) U/L Troponin T (<0.03) ng/mL C-Reactive Protein (0.03-0.80) mg/dL NT-Pro-B Natriuret Pep (<450.0) pg/mL Total Protein (5.9-8.4) gm/dL Albumin (3.2-5.2) gm/dL Globulin (2.2-3.7) gm/dL Albumin/Globulin Ratio (1.0-2.3) TSH (0.27-5.01) uIU/mL Radiology Data Radiology results reviewed: Yes I reviewed the patient's radiology results. Radiology results narrative: CT scan of the head is negative for acute or tsang bacute stroke EKG Data EKG #1: EKG attestation: Yes I reviewed and interpreted this EKG. and Yes There are no EKG findings of acute coronary syndrome EKG results narrative: EKG shows a rate of 76 and atrial fibrillation with a nonspecific interventricular conduction delay Discharge Plan Patient/Caregiver Discharge Instructions Pt seen by RATE SETTER/PA only: No Clinical Impression: Metabolic acidosis, Acute hypernatremia Acute kidney failure Qualifiers: Acute renal failure type: unspecified Qualified Code(s): N17.9 - Acute kidney failure, unspecified Patient Disposition: Xfer As Inpt ([facility] [place]) Condition: Fair Follow up with: Hector Cho MD [Physician] - Laura Walton MD [Primary Care Provider] - Prescriptions: No Action diltiazem HCl [Cartia XT] 180 mg capsule,extended release 24hr 180 mg PO QDAY Qty: 30 RF: 11 atorvastatin 20 mg tablet 20 mg PO HS RF: 0 (DME) blood sugar diagnostic [Contour Test Strips] strip 1 dose .ROUTE .MEDSUPPLY RF: 0 apixaban 2.5 mg tablet 2.5 mg PO BID 30 Days Qty: 60 RF: 0 sodium bicarbonate 650 mg tablet 650 mg PO TID Qty: 100 RF: 11 metoprolol tartrate 100 mg tablet 100 mg PO QDAY RF: 0 furosemide 20 mg tablet 20 mg PO DAILY RF: 0 Ocuvite Adult 50 Plus 250-5-1 mg Capsule 1 cap PO DAILY RF: 0 Adults Multivitamin 18 mg iron-400 mcg-25 mcg Tablet 1 tab PO DAILY RF: 0 metoprolol tartrate 50 mg Tablet 50 mg PO HS RF: 0 acidophilus-pectin, citrus [Acidophilus Probiotic] 100 million cell-10 mg Capsule 1 cap PO DAILY RF: 0 acetazolamide 250 mg Tablet 250 mg PO BID RF: 0 timolol 0.5 % Drops 1 drp OPHTHALMIC (EYE) BID RF: 0 brimonidine 0.2 % Drops 1 drp OPHTHALMIC (EYE) TID RF: 0 Lumigan 0.01 % Drops 1 drp OPHTHALMIC (EYE) QPM RF: 0
[2020-04-10 10:59] LABS: Basophils # (Auto) 0.06 K/mcL (0.00-0.20); Basophils % (Auto) 0.6 % (0.0-2.0); Eosinophils # (Auto) 0.34 K/mcL (0.00-0.70); Eosinophils % (Auto) 3.4 % (0.0-7.0); Hematocrit 35.1 % (41.0-55.0); Hemoglobin 11.6 g/dL (13.5-16.5); Lymphocytes # (Auto) 0.76 K/mcL (1.50-4.80); Lymphocytes % (Auto) 7.6 % (15.0-49.0); Mean Cell Volume 94.4 fL (80.0-100.0); Mean Platelet Volume 11.1 fL (7.4-10.4); Monocytes # (Auto) 0.92 K/mcL (0.10-0.90); Monocytes % (Auto) 9.2 % (1.0-12.0); Neutrophils % (Auto) 79.2 % (38.0-78.0); Platelet Count 201 K/mcL (140-440); RBC 3.72 M/mcL (4.50-5.90)
[2020-04-10] MEDS ORDERED: LORazepam 2 MG/ML VIAL IV ONE (11:20)
[2020-04-10] MEDS ORDERED: SODIUM BICARBONATE 50 MEQ/50 ML VIAL IV ONE ×2 (11:44→11:52)
[2020-04-10] MEDS ORDERED: SODIUM BICARBONATE VIAL 100 MEQ in DEXTROSE 5% IN WATER 900 ML IV SCH (11:45)
--- NOTE | 2020-04-10 12:53 | XRay Report ---
CLINICAL INFORMATION: rales COMPARISON: 12/12/2019 FINDINGS: Moderate cardiomegaly is stable. Heavy mitral valve calcification seen as before. Sternotomy changes noted. Mediastinum is unremarkable. Pulmonary vessels within normal limits. No edema. IMPRESSION: Moderate stable cardiomegaly. No acute disease Interpreted and Authenticated by: Carlton Evans 04/10/20
--- NOTE | 2020-04-10 12:59 | Cat Scan Report ---
CLINICAL INFORMATION: Code stroke. Facial droop and tongue deviation COMPARISON: None. TECHNIQUE: 2.5 mm helical slices were obtained in the skull base to vertex. Following reconstruction, axial reformatted images were reviewed at bone and parenchymal windows. The exam was performed using radiation dose optimization techniques including, but not limited to, automated exposure control, adjustment of the mA and/or kV according to patient size and use of iterative reconstruction technique. FINDINGS: The ventricles, sulci, fissures, and cisterns are symmetrically enlarged compatible with mild age-related atrophy. No subdural hemorrhage or other extra-axial fluid collection or mass appreciated. Mild patchy chronic ischemic changes in the cerebral white matter are expected for age. A 4 mm remote lacunar infarct is seen in the deep right frontal periventricular white matter. There is a 20 mm remote infarct in the inferior left cerebellar vermis in the PICA distribution. There is also a 8 mm remote lacunar infarct in the right dentate nucleus, a 5 mm remote lacunar infarct in the right superior cerebellar vermis and a 7 mm lacunar infarct in the superior left cerebellar vermis. There is no intracerebral -hemorrhage, mass effect, edema or other acute finding. The bone windows show no osseous abnormality. IMPRESSION: 1. No evidence of edema, hemorrhage mass effect or other acute finding. 2. Mild atrophy with chronic ischemic changes in the deep cerebral white matter - expected for age. 3. 20 mm remote infarct in the inferior left cerebellar vermis within the PICA distribution. There are also 3-4 remote lacunar infarcts within the cerebellum and also the deep right frontal white matter. Consider: CT cervical carotid arteriogram and cerebral arteriogram to evaluate for stenosis in the posterior artery circulation. Interpreted and Authenticated by: Carlton Evans 04/10/20
[2020-04-10 13:46] LABS: Thyroid Stimulating Hormone 1.44 uIU/mL (0.27-5.01)
[2020-04-10 14:09] LABS: ALT/SGPT 13 U/L (<40); AST/SGOT 23 U/L (<40); Albumin 4.1 gm/dL (3.2-5.2); Albumin/Globulin Ratio 1.4 (1.0-2.3); Alkaline Phosphatase 133 U/L (39-117); Bilirubin,Total 0.5 mg/dL (0.1-1.0); Blood Urea Nitrogen 159 mg/dL (8-23); Calcium 9.1 mg/dL (8.6-10.4); Carbon Dioxide 7 mmol/L (22-30); Chloride 118 mmol/L (96-108); Glomerular Filtration Rate 12; Glucose 138 mg/dL (70-105)
--- NOTE | 2020-04-10 15:32 | Nephrology Consult Note ---
HPI Data of Consult Primary Care Provider: Laura Walton Consult Narrative Patient Information: Note initiated : 04/10/20 at 3:30 pm Service Date, if different from initiated Date: [] Patient: Carlton Cerda 74 y/o M admitted on for failure to thrive. Chief Complaint: [Confusion and metabolic acidosis] cc:: CC: Patient is well-known to me from previous office and hospital admissions over the past year. His last admission was several months ago for prolonged hypoglycemia. This patient was being followed by Dr. Hankins when he was admitted to [facility] last year with what proved to be acute ascending cholecystitis and acute on chronic renal failure. He was treated with IV antibiotics and dialysis with improvement in his septic presentation. However, as an outpatient he could not be dialyzed due to almost immediate hypotension followed by tachycardia and more hypotension along with dyspnea and the patient begging to come off dialysis. I see he had some degree of mitral valve disease there was not moderate or critical mitral valve stenosis but I fear the loss of right-sided pressure has he was placed on dialysis caused him to have an abrupt decline in his cardiac output worsened by tachycardia and poor LV filling, more hypotension and more feeling of impending doom. Turns out they have friends in [place] who had an extremely poor experience with peritoneal dialysis so they have refused to even consider that modality. Follow up visit after stopping HD on 06/02/2019 due to intolerable hemodynamic effects and after 2 x 30 min discussions. Catheter removed and placed on conservative management.. As it turned out the patient was no worse off avoiding dialysis that he was attempting to undergo hemodialysis. Eventually he desired to have his diabetic foot ulcer on his left foot evaluated and was seeing wound care for treatment of foot ulcer and poor wound healing. End of January 2020 he presented to the emergency room with profound and prolonged hypoglycemia requiring a D10 drip having not had any glipizide in the better part of a week. He was allowed to leave the next day as his glucose had been stable. Concerns were that he has impaired gluconeogenesis based on the presence of advanced renal insufficiency prior hepatic metastasis from an unknown primary. Lab work-up initiated by the ER physician shocked me to find that his that his C-peptide level was markedly high drawn at a time when presumably is blood sugar was in the 40s which would be inappropriate. If that is truly the case then he needs a work-up for an insulinoma and failing to demonstrate that and I guess this is a paraneoplastic syndrome. However, the patient's maintained his blood sugar since discharge a few days ago and this argues against an insulinoma. In that case, the prolonged biologic half-life of glipizide would have caused continued inappropriate release of endogenous insulin leading to the elevated C-peptide level until the glipizide effect finally abated. If this is the case then he should not be bothered by hypoglycemia moving forward but to be sure I instructed the patient how to use glucose tablets (4 tablets which will equal 16 g of dextrose) when needed for symptomatic hypoglycemia Finally he is hemoglobin is still above 9.0 (this is the Medicare level for starting Aranesp therapy), so I will continue to monitor this and start Aranesp when his hemoglobin drops below 9 grams per deciliter. All medications should be adjusted for a GFR of 10. Treatment is symptomatic using quick release forms dextrose such as apple juice and other non citrus juices (trying to avoid hyperkalemia in CKD 5), glucose tablets (4 at a time for 16 g dextrose), clear carbonated beverages such as Sprite (to avoid phosphate loading with sanjana and advanced renal failure). Labs for prior office visit were drawn on March 18, 2020: Sodium 140 potassium 4.0 chloride 110 CO2 18 BUN 82 creatinine 4.8 EGFR 11 Calcium 8.5 phosphorus 6.0 PTH 361 Previous white count 8000 with 2% eosinophils in January 2020 Labs drawn in the ED 04/10/2020 are as follows: Laboratory Tests 04/10/20 04/10/20 04/10/20 10:08 10:08 10:08 WBC 10.0 Hgb 11.6 L Hct 35.1 L MCV 94.4 Plt Count 201 Eos % (Auto) 3.4 Sodium 148 H Potassium 3.5 Chloride 118 H Carbon Dioxide 7 L* Anion Gap 23.0 H BUN 159 H* Creatinine 4.4 H GFR Calculation 12 Glucose 138 H Calcium 9.1 Magnesium 2.6 H Total Bilirubin 0.5 AST 23 ALT 13 Alkaline Phosphatase 133 H Troponin T 0.08 H* C-Reactive Protein 0.50 NT-Pro-B Natriuret Pep 00384.0 H Total Protein 7.1 Albumin 4.1 Globulin 3.0 TSH 1.44 Laboratory Tests 04/10/20 10:20 VBG Lactic Acid 1.0 CXR 6-year trend of serum creatinine 6-year trend of serum bicarb Trend of serum bicarbonate After reviewing the chart, it seems clear now what happened of this patient. I recall him telling me he was going to have eye surgery and in fact I may have cleared him for that surgery earlier in the month. It has happened as he has been put on acetazolamide for increased intraocular pressure which has resulted in the inability to regenerate bicarbonate by the kidney and is resulted in the marked metabolic acidosis VC that could not be explained by the usual culprits such as lactic acid, acetoacetate, or worsening renal failure. While he is completely maximized his respiratory compensation, the effects of acetazolamide should be short-lived and can be overcome by exogenous bicarbonate administration to maintain a pH of 7.2 until such a time his kidneys can adequately compensate with the bicarbonate hopefully around 20 and I see he was on bicarbonate supplementation when I last saw him. This is the only etiology that makes sense and while his labs are quite out of whack, there are no more so than usual. 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) Atrial fibrillation with normal ventricular rate (Chronic) Mitral valve stenosis and regurgitation (Chronic) Chronic combined systolic and diastolic CHF, NYHA class 2 (Chronic) Anemia due to stage 5 chronic kidney disease treated with darbepoetin (Chronic) CKD stage G5/A3, GFR <15 and albumin creatinine ratio >300 mg/g (Chronic) CKD stage G4/A3, GFR 15-29 and albumin creatinine ratio >300 mg/g (Chronic) Lung nodule (Chronic) Aspiration into airway (Chronic) Pharyngeal dysphagia (Chronic) GERD (gastroesophageal reflux disease) (Chronic) Anemia in stage 4 chronic kidney disease (Chronic) Secondary hyperparathyroidism of renal origin (Chronic) Numbness (Chronic) Change in nail appearance (Chronic) Adenomatous colon polyp (Chronic) TIA (transient ischemic attack) (Chronic) Shingles (Chronic) intermediate (current) use of anticoagulants (Chronic) History of bleeding ulcers (Chronic) Hepatocellular carcinoma (Chronic) Mitral stenosis (Chronic) AV block, 1st degree (Chronic) Ventricular bigeminy (Chronic) Bradycardia (Chronic) Coronary artery disease (Chronic) Severe obesity (Chronic) Cirrhosis (Chronic) Chronic atrial fibrillation (Chronic) Diabetic foot ulcer (Chronic) Hammer toe of right foot (Chronic) Hammer toe of left foot (Chronic) Ridged nails (Chronic) Changes in skin texture (Chronic) Edema, unspecified (Chronic) Chronic ulcer of great toe of right foot with necrosis of bone (Chronic) Type 2 diabetes mellitus with foot ulcer (Chronic) PAD (peripheral artery disease) (Chronic) Personal history of nicotine dependence (Chronic) intermediate frame tender (current) use of oral hypoglycemic drugs (Chronic) Type 2 diabetes mellitus with diabetic peripheral angiopathy without gangrene (Chronic) Corns and callosities (Chronic) Tinea unguium (Chronic) Obese (Chronic) Ambulates with cane (Chronic) Bruising (Chronic) Intermittent claudication (Chronic) Dyspnea on exertion (Chronic) Loss of taste (Chronic) Myocardial infarction (Chronic) Hypertension (Chronic) Hypercholesterolemia (Chronic) Peripheral vascular disease (Chronic) Non-healing ulcer (Chronic) Osteomyelitis (Chronic) Diabetic ulcer of toe (Chronic) Congestive heart failure (Chronic) Numbness in feet (Chronic) Burning sensation of feet (Chronic) Paresthesia (Chronic) Muscle cramps (Chronic) Leg pain (Chronic) History of acute myocardial infarction (Chronic) Wound abscess (Chronic) Wound cellulitis (Chronic) Chronic kidney disease, stage 3 (Chronic) Preventative health care (Chronic) Diabetic peripheral neuropathy (Chronic) DM (diabetes mellitus), type 2, uncontrolled w/neurologic complication (Chronic) Diabetes mellitus with renal manifestation (Chronic) CKD stage 4 due to type 2 diabetes mellitus (Chronic) Diabetes mellitus with peripheral circulatory disorder (Chronic) Claudication (Chronic) Hypertensive CKD (chronic kidney disease) (Chronic) Paroxysmal atrial fibrillation (Chronic) Hyperlipidemia (Chronic) Severe obesity (Chronic) Nocturia (Chronic) Screening PSA (prostate specific antigen) (Chronic) History of tobacco use (Chronic) Dystrophic nail (Chronic) Onychomycosis (Chronic) Medical History Adenomatous colon polyp (Chronic) Ambulates with cane (Chronic) Anemia due to stage 5 chronic kidney disease treated with darbepoetin (Chronic) Aranesp q 2-4 weeks if HgB <10 gm/dl. Needs O2 carrying capacity to be maximized Anemia in stage 4 chronic kidney disease (Chronic) Serial hemoglobin and hematocrit Iron studies Start JULIAN therapy when and if hemoglobin less than 10 given his cardiac status Aspiration into airway (Chronic) AV block, 1st degree (Chronic) Bradycardia (Chronic) Bruising (Chronic) Burning sensation of feet (Chronic) occasionally Change in nail appearance (Chronic) Changes in skin texture (Chronic) Chronic atrial fibrillation (Chronic) Chronic combined systolic and diastolic CHF, NYHA class 2 (Chronic) Combination ASCAD, HTN and Valvular heart disease. A fib with RVR (Like with HD) caused acute decompensation and resulted in patients informed choice to forgo further dialysis treatments Chronic cough (Resolved) Chronic kidney disease, stage 3 (Chronic) Chronic ulcer of great toe of right foot with necrosis of bone (Chronic) Cirrhosis (Chronic) CKD stage 4 due to type 2 diabetes mellitus (Chronic) Slow progression to a GFR of 11 cc/min. He has no symptoms and at this point did not want to discuss renal replaceme nt therapy I suspect he has a year to go before we have to institute dialysis so I did not push the issue CKD stage G4/A3, GFR 15-29 and albumin creatinine ratio >300 mg/g (Chronic) Doubt this is diabetic due to good hemoglobin A1c values over the years Could be secondary membranous GN in association with his adenocarcinoma of the liver And then any of the other common causes of nephrotic range proteinuria including amyloidosis, decompensated congestive heart failure, RPGN etc. use of apixaban as an anticoagulant makes renal biopsy difficult logistically. CKD stage G5/A3, GFR <15 and albumin creatinine ratio >300 mg/g (Chronic) Slow progression till 04/2019 when cholecystitis and ARF. Peak SCr 8, 2 weeks HD but could not tolerate. Stopped HD 06/02/2019 and conservative Tx thereafter, "baseline SCr was 4.5 mg/dl" Heavy proteinuria and well-controlled hemoglobin A1 C's make me think that this is not diabetic nephropathy but perhaps related to congestive heart failure or any of the other age related diseases such as a monoclonal related process, membranous as he has had prior adenocarcinoma of his liver or FSGN. We will treat conservatively he has not tolerated RAASI in the past due to hyperkalemia, so using diltiazem for its anti-proteinuric effects and for rate control with A. fib Claudication (Chronic) Corns and callosities (Chronic) Coronary artery disease (Chronic) Diabetes mellitus with peripheral circulatory disorder (Chronic) Diabetes mellitus with renal manifestation (Chronic) Diabetic foot ulcer (Chronic) Right Diabetic peripheral neuropathy (Chronic) DM (diabetes mellitus), type 2, uncontrolled w/neurologic complication (Chronic) and vascular complications Dyspnea on exertion (Chronic) Dystrophic nail (Chronic) Edema, unspecified (Chronic) GERD (gastroesophageal reflux disease) (Chronic) Hammer toe of left foot (Chronic) Hammer toe of right foot (Chronic) Hepatocellular carcinoma (Chronic) History of acute myocardial infarction (Chronic) History of bleeding ulcers (Chronic) History of tobacco use (Chronic) Hypercholesterolemia (Chronic) Hyperlipidemia (Chronic) Hypertension (Chronic) Hypertensive CKD (chronic kidney disease) (Chronic) Intermittent claudication (Chronic) Leg pain (Chronic) intermediate (current) use of anticoagulants (Chronic) intermediate (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 Wth mild on resting ECHO, significant on HD with rapid AFIb leading to Muscle cramps (Chronic) Myocardial infarction (Chronic) Nocturia (Chronic) Non-healing ulcer (Chronic) Numbness (Chronic) Numbness in feet (Chronic) sometimes Obese (Chronic) Onychomycosis (Chronic) Osteomyelitis (Chronic) Right 3rd Toe PAD (peripheral artery disease) (Chronic) Paresthesia (Chronic) Paroxysmal atrial fibrillation (Chronic) Peripheral vascular disease (Chronic) Personal history of nicotine dependence (Chronic) Pharyngeal dysphagia (Chronic) Preventative health care (Chronic) Ridged nails (Chronic) Screening PSA (prostate specific antigen) (Chronic) Secondary hyperparathyroidism of renal origin (Chronic) Monitor PTH on calcitriol 0.25 ug per day until 06/05/2019 when I held his calcitriol as his PTH was now less than 50 Severe obesity (Chronic) Severe obesity (Chronic) Shingles (Chronic) TIA (transient ischemic attack) (Chronic) Tinea unguium (Chronic) Type 2 diabetes mellitus with diabetic peripheral angiopathy without gangrene (Chronic) Type 2 diabetes mellitus with foot ulcer (Chronic) Ventricular bigeminy (Chronic) 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) While he has significant proteinuria his hemoglobin A1c is well controlled as has been his diabetes and 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 that at this point will treat with diltiazem for anti- proteinuric effects and he is anticoagulated for his atrial fibrillation Wound abscess (Chronic) Wound cellulitis (Chronic) Surgical History History of amputation of toe (Chronic) Right 2nd Toe History of bilateral cataract extraction (Chronic) History of colonoscopy (Chronic 05/17/10) History of coronary artery bypass graft (Chronic) History of detached retina repair (Chronic) History of open heart surgery (Chronic ~1980) Bypass History of oral surgery (Chronic) History of surgery (Acute) per patient liver cancer 2017 History of tonsillectomy (Chronic) Family History Mother Heart disease Kidney disease COPD (chronic obstructive pulmonary disease) Father Diabetes Social History marital status: smoking status: Former smoker smoking status start date: 04/16/06 smoking status stop date: 04/16/78 alcohol intake frequency: does not drink substance use type: does not use MEDS/ALLERGIES Home Medications and Allergies Home Medications Medication Instructions Recorded Confirmed Type atorvastatin 20 mg tablet 20 mg PO HS 02/08/16 04/10/20 History blood sugar diagnostic 02/08/16 02/17/20 History apixaban 2.5 mg tablet 2.5 mg PO BID 30 Days #60 tab 02/15/17 04/10/20 History furosemide 20 mg PO DAILY 01/13/20 04/10/20 History Adults Multivitamin 1 tab PO DAILY 02/11/20 04/10/20 History Ocuvite Adult 50 Plus 1 cap PO DAILY 02/11/20 04/10/20 History metoprolol tartrate 100 mg tablet 100 mg PO QDAY tab 02/17/20 04/10/20 History sodium bicarbonate 650 mg tablet 650 mg PO TID #100 tab 02/17/20 04/10/20 Rx diltiazem HCl 180 mg 180 mg PO QDAY #30 cap 02/20/20 04/10/20 Rx capsule,extended release 24 hr acetazolamide 250 mg PO BID 04/10/20 04/10/20 History acetazolamide 500 mg PO DAILY 04/10/20 04/10/20 History acidophilus-pectin, citrus 1 cap PO DAILY 04/10/20 04/10/20 History [Acidophilus Probiotic] bimatoprost [Lumigan] 1 - 2 drp OPHTHALMIC (EYE) QPM 04/10/20 04/10/20 History brimonidine 1 - 2 drp OPHTHALMIC (EYE) TID 04/10/20 04/10/20 History metoprolol tartrate 50 mg PO HS 04/10/20 04/10/20 History timolol 1 - 2 drp OPHTHALMIC (EYE) BID 04/10/20 04/10/20 History Allergies Allergy/AdvReac Type Severity Reaction Status Date / Time No Known Drug Allergies Allergy Verified 02/17/20 15:12 Physical Examination Vital Signs Vital signs: Temp Pulse Resp BP Pulse Ox 36.4 C 99 H 26 H 163/121 97 04/10/20 09:55 04/10/20 15:24 04/10/20 15:24 04/10/20 15:24 04/10/20 15:24 General Appearance General appearance: moderate distress, chronically ill and frail Exam Narrative: Obtunded EENT EENT: ATNC and mucous membranes dry Neck Neck: no JVD and no carotid bruit Respiratory Respiratory: wheezing (End expiratory) and rhonchi (Kusmal respirations) Cardiovascular Cardiology: mid-systolic murmur, no rub, edema, normal S1 and normal S2 Gastrointestinal Gastrointestinal: no tenderness, hepatomegaly and obese Integumentary Integumentary: no rash and ecchymotic Neurologic Neurologic: no asterixis and disoriented (Barely responds to noxious stimuli) Musculoskeletal Musculoskeletal: deformities (Right second toe amputation) Additional Exam Additional exam: Obtunded Deep slow respirations Results Lab Results Result Diagrams: 04/10/20 10:08 04/10/20 10:08 Lab results: Most recent lab results Calcium 9.1 mg/dL (8.6-10.4) 04/10/20 10:08 Magnesium 2.6 mg/dL (1.6-2.5) H 04/10/20 10:08 A/P Assessment and plan (1) Adverse effect of carbonic-anhydrase inhibitors, benzothiadiazides and other diuretics, initial encounter: Status: Acute Comment: Diamox started after recent eye surgery has lead to acute worsening of metabolic acidosis (2) Metabolic acidosis with increased anion gap and reduced excretion of inorgan ic acids: Status: Acute Comment: Related to renal failure and will start sodium bicarbonate 650 mg 3 times daily (3) CKD stage G5/A3, GFR <15 and albumin creatinine ratio >300 mg/g: Status: Chronic Comment: Slow progression till 04/2019 when cholecystitis and ARF. Peak SCr 8, 2 weeks HD but could not tolerate. Stopped HD 06/02/2019 and conservative Tx thereafter, "baseline SCr was 4.5 mg/dl" Heavy proteinuria and well-controlled hemoglobin A1 C's make me think that this is not diabetic nephropathy but perhaps related to congestive heart failure or any of the other age related diseases such as a monoclonal related process, membranous as he has had prior adenocarcinoma of his liver or FSGN. We will treat conservatively he has not tolerated RAASI in the past due to hyperkalemia, so using diltiazem for its anti-proteinuric effects and for rate control with A. fib (4) Atrial fibrillation with normal ventricular rate: Status: Chronic Comment: Metoprolol and diltiazem for rate control, apixaban adjusted for renal function (5) Mitral valve stenosis and regurgitation: Status: Chronic Comment: Metoprolol, diltiazem, apixaban. Wth mild on resting ECHO, significant on HD with rapid AFIb leading to (6) Chronic combined systolic and diastolic CHF, NYHA class 2: Status: Chronic Comment: Combination ASCAD, HTN and Valvular heart disease. A fib with RVR (Like with HD) caused acute decompensation and resulted in patients informed choice to forgo further dialysis treatments (7) Secondary hyperparathyroidism of renal origin: Status: Chronic Comment: Monitor PTH on calcitriol 0.25 ug per day until 06/05/2019 when I held his calcitriol as his PTH was now less than 50 Narrative A/P Narrative: * Stop Diamox * Continue sodium bicarb drip until bicarb is between 15 and 20 with every 6 hours BMP * Recheck labs in a.m. * Patient and have in the past stated in no uncertain terms that he should never be placed on dialysis again Time Spent With Patient Time: Total time spent is greater than 50% in coordination of care (as documented) at patient's floor/unit and/or counseling patient: Greater than 100 minutes, half of which was spent with extensive chart review and the other half at the bedside and talking with ER staff Total time spent with greater than 50% in coordination of care (as documented) at patient's floor/unit and/or counseling patient:: Greater than 35 minutes
[2020-04-10] MEDS ORDERED: morphine 4 MG/ML VIAL IV PRN (16:19)
[2020-04-10] MEDS ORDERED: LORazepam 2 MG/ML VIAL IV PRN (16:19)
[2020-04-10] MEDS ORDERED: ONDANSETRON 4 MG/2 ML VIAL IV PRN ×2 (16:19→17:19)
--- NOTE | 2020-04-10 16:28 | Internal Med History&Physical ---
HPI History of Present Illness Patient information: Note initiated : 04/10/20 at 4:26 pm Service Date, if different from initiated Date: [] Patient: Carlton Cerda 74 y/o M admitted on for failure to thrive. Chief Complaint: [] History of present illness: Mr. Cerda is a 74 year old M with a past medical history of atrial fibrillation with all Eliquis, diabetes type 2, chronic combined systolic and diastolic CHF, CKD stage G5 A3, dysphagia, liver cancer, liver cirrhosis, CAD status post myocardial infarction, history of stroke, hypertension, and hypoglycemia who was brought to the ER due to generalized weakness and confusion. Patient is confused today and cannot give meaningful history. Over the past weeks patient has been sick. His blood sugar has been low at times. Patient was on dialysis but he stopped dialysis due to intolerance. In the ER, he was found to have will severe metabolic acidosis, pH 7.17. Heating Operators Engineer Dr. Mirza saw pt. Dr. Mirza did not feel he is a candidate for HD. 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) Atrial fibrillation with normal ventricular rate (Chronic) Mitral valve stenosis and regurgitation (Chronic) Chronic combined systolic and diastolic CHF, NYHA class 2 (Chronic) Anemia due to stage 5 chronic kidney disease treated with darbepoetin (Chronic) CKD stage G5/A3, GFR <15 and albumin creatinine ratio >300 mg/g (Chronic) CKD stage G4/A3, GFR 15-29 and albumin creatinine ratio >300 mg/g (Chronic) Lung nodule (Chronic) Aspiration into airway (Chronic) Pharyngeal dysphagia (Chronic) GERD (gastroesophageal reflux disease) (Chronic) Anemia in stage 4 chronic kidney disease (Chronic) Secondary hyperparathyroidism of renal origin (Chronic) Numbness (Chronic) Change in nail appearance (Chronic) Adenomatous colon polyp (Chronic) TIA (transient ischemic attack) (Chronic) Shingles (Chronic) correction (current) use of anticoagulants (Chronic) History of bleeding ulcers (Chronic) Hepatocellular carcinoma (Chronic) Mitral stenosis (Chronic) AV block, 1st degree (Chronic) Ventricular bigeminy (Chronic) Bradycardia (Chronic) Coronary artery disease (Chronic) Severe obesity (Chronic) Cirrhosis (Chronic) Chronic atrial fibrillation (Chronic) Diabetic foot ulcer (Chronic) Hammer toe of right foot (Chronic) Hammer toe of left foot (Chronic) Ridged nails (Chronic) Changes in skin texture (Chronic) Edema, unspecified (Chronic) Chronic ulcer of great toe of right foot with necrosis of bone (Chronic) Type 2 diabetes mellitus with foot ulcer (Chronic) PAD (peripheral artery disease) (Chronic) Personal history of nicotine dependence (Chronic) 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 hypoglycemic drugs (Chronic) Type 2 diabetes mellitus with diabetic peripheral angiopathy without gangrene (Chronic) Corns and callosities (Chronic) Tinea unguium (Chronic) Obese (Chronic) Ambulates with cane (Chronic) Bruising (Chronic) Intermittent claudication (Chronic) Dyspnea on exertion (Chronic) Loss of taste (Chronic) Myocardial infarction (Chronic) Hypertension (Chronic) Hypercholesterolemia (Chronic) Peripheral vascular disease (Chronic) Non-healing ulcer (Chronic) Osteomyelitis (Chronic) Diabetic ulcer of toe (Chronic) Congestive heart failure (Chronic) Numbness in feet (Chronic) Burning sensation of feet (Chronic) Paresthesia (Chronic) Muscle cramps (Chronic) Leg pain (Chronic) History of acute myocardial infarction (Chronic) Wound abscess (Chronic) Wound cellulitis (Chronic) Chronic kidney disease, stage 3 (Chronic) Preventative health care (Chronic) Diabetic peripheral neuropathy (Chronic) DM (diabetes mellitus), type 2, uncontrolled w/neurologic complication (Chronic) Diabetes mellitus with renal manifestation (Chronic) CKD stage 4 due to type 2 diabetes mellitus (Chronic) Diabetes mellitus with peripheral circulatory disorder (Chronic) Claudication (Chronic) Hypertensive CKD (chronic kidney disease) (Chronic) Paroxysmal atrial fibrillation (Chronic) Hyperlipidemia (Chronic) Severe obesity (Chronic) Nocturia (Chronic) Screening PSA (prostate specific antigen) (Chronic) History of tobacco use (Chronic) Dystrophic nail (Chronic) Onychomycosis (Chronic) Medical History Adenomatous colon polyp (Chronic) Ambulates with cane (Chronic) Anemia due to stage 5 chronic kidney disease treated with darbepoetin (Chronic) Aranesp q 2-4 weeks if HgB <10 gm/dl. Needs O2 carrying capacity to be maximized Anemia in stage 4 chronic kidney disease (Chronic) Serial hemoglobin and hematocrit Iron studies Start JULIAN therapy when and if hemoglobin less than 10 given his cardiac status Aspiration into airway (Chronic) AV block, 1st degree (Chronic) Bradycardia (Chronic) Bruising (Chronic) Burning sensation of feet (Chronic) occasionally Change in nail appearance (Chronic) Changes in skin texture (Chronic) Chronic atrial fibrillation (Chronic) Chronic combined systolic and diastolic CHF, NYHA class 2 (Chronic) Combination ASCAD, HTN and Valvular heart disease. A fib with RVR (Like with HD) caused acute decompensation and resulted in patients informed choice to forgo further dialysis treatments Chronic cough (Resolved) Chronic kidney disease, stage 3 (Chronic) Chronic ulcer of great toe of right foot with necrosis of bone (Chronic) Cirrhosis (Chronic) CKD stage 4 due to type 2 diabetes mellitus (Chronic) Slow progression to a GFR of 11 cc/min. 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 use of apixaban as an anticoagulant makes renal biopsy difficult logistically. CKD stage G5/A3, GFR <15 and albumin creatinine ratio >300 mg/g (Chronic) Slow progression till 04/2019 when cholecystitis and ARF. Peak SCr 8, 2 weeks HD but could not tolerate. Stopped HD 06/02/2019 and conservative Tx thereafter, "baseline SCr was 4.5 mg/dl" Heavy proteinuria and well-controlled hemoglobin A1 C's make me think that this is not diabetic nephropathy but perhaps related to congestive heart failure or any of the other age related diseases such as a monoclonal related process, membranous as he has had prior adenocarcinoma of his liver or FSGN. We will treat conservatively he has not tolerated RAASI in the past due to hyperkalemia, so using diltiazem for its anti-proteinuric effects and for rate control with A. fib Claudication (Chronic) Corns and callosities (Chronic) Coronary artery disease (Chronic) Diabetes mellitus with peripheral circulatory disorder (Chronic) Diabetes mellitus with renal manifestation (Chronic) Diabetic foot ulcer (Chronic) Right Diabetic peripheral neuropathy (Chronic) DM (diabetes mellitus), type 2, uncontrolled w/neurologic complication (Chronic) and vascular complications Dyspnea on exertion (Chronic) Dystrophic nail (Chronic) Edema, unspecified (Chronic) GERD (gastroesophageal reflux disease) (Chronic) Hammer toe of left foot (Chronic) Hammer toe of right foot (Chronic) Hepatocellular carcinoma (Chronic) History of acute myocardial infarction (Chronic) History of bleeding ulcers (Chronic) History of tobacco use (Chronic) Hypercholesterolemia (Chronic) Hyperlipidemia (Chronic) Hypertension (Chronic) Hypertensive CKD (chronic kidney disease) (Chronic) Intermittent claudication (Chronic) Leg pain (Chronic) correction (current) use of anticoagulants (Chronic) 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 Wth mild on resting ECHO, significant on HD with rapid AFIb leading to Muscle cramps (Chronic) Myocardial infarction (Chronic) Nocturia (Chronic) Non-healing ulcer (Chronic) Numbness (Chronic) Numbness in feet (Chronic) sometimes Obese (Chronic) Onychomycosis (Chronic) Osteomyelitis (Chronic) Right 3rd Toe PAD (peripheral artery disease) (Chronic) Paresthesia (Chronic) Paroxysmal atrial fibrillation (Chronic) Peripheral vascular disease (Chronic) Personal history of nicotine dependence (Chronic) Pharyngeal dysphagia (Chronic) Preventative health care (Chronic) Ridged nails (Chronic) Screening PSA (prostate specific antigen) (Chronic) Secondary hyperparathyroidism of renal origin (Chronic) Monitor PTH on calcitriol 0.25 ug per day until 06/05/2019 when I held his calcitriol as his PTH was now less than 50 Severe obesity (Chronic) Severe obesity (Chronic) Shingles (Chronic) TIA (transient ischemic attack) (Chronic) Tinea unguium (Chronic) Type 2 diabetes mellitus with diabetic peripheral angiopathy without gangrene (Chronic) Type 2 diabetes mellitus with foot ulcer (Chronic) Ventricular bigeminy (Chronic) 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) While he has significant proteinuria his hemoglobin A1c is well controlled as has been his diabetes and 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 that at this point will treat with diltiazem for anti- proteinuric effects and he is anticoagulated for his atrial fibrillation Wound abscess (Chronic) Wound cellulitis (Chronic) Surgical History History of amputation of toe (Chronic) Right 2nd Toe History of bilateral cataract extraction (Chronic) History of colonoscopy (Chronic 05/17/10) History of coronary artery bypass graft (Chronic) History of detached retina repair (Chronic) History of open heart surgery (Chronic ~1980) Bypass History of oral surgery (Chronic) History of surgery (Acute) per patient liver cancer 2017 History of tonsillectomy (Chronic) Family History Mother Heart disease Kidney disease COPD (chronic obstructive pulmonary disease) Father Diabetes Social History marital status: smoking status: Never smoker smoking status start date: 04/16/06 smoking status stop date: 04/16/78 alcohol intake frequency: does not drink substance use type: does not use MEDS/ALLERGIES Home Medications and Allergies Home Medications Medication Instructions Recorded Confirmed Type atorvastatin 20 mg tablet 20 mg PO HS 02/08/16 04/10/20 History blood sugar diagnostic 02/08/16 02/17/20 History apixaban 2.5 mg tablet 2.5 mg PO BID 30 Days #60 tab 02/15/17 04/10/20 History furosemide 20 mg PO DAILY 01/13/20 04/10/20 History Adults Multivitamin 1 tab PO DAILY 02/11/20 04/10/20 History Ocuvite Adult 50 Plus 1 cap PO DAILY 02/11/20 04/10/20 History metoprolol tartrate 100 mg tablet 100 mg PO QDAY tab 02/17/20 04/10/20 History sodium bicarbonate 650 mg tablet 650 mg PO TID #100 tab 02/17/20 04/10/20 Rx diltiazem HCl 180 mg 180 mg PO QDAY #30 cap 02/20/20 04/10/20 Rx capsule,extended release 24 hr acetazolamide 250 mg PO BID 04/10/20 04/10/20 History acidophilus-pectin, citrus 1 cap PO DAILY 04/10/20 04/10/20 History [Acidophilus Probiotic] bimatoprost [Lumigan] 1 drp OPHTHALMIC (EYE) QPM 04/10/20 04/10/20 History brimonidine 1 drp OPHTHALMIC (EYE) TID 04/10/20 04/10/20 History metoprolol tartrate 50 mg PO HS 04/10/20 04/10/20 History timolol 1 drp OPHTHALMIC (EYE) BID 04/10/20 04/10/20 History Allergies Allergy/AdvReac Type Severity Reaction Status Date / Time No Known Drug Allergies Allergy Verified 02/17/20 15:12 EXAM Constitutional Vitals: Temp Pulse Resp BP Pulse Ox 97.5 F 99 H 18 147/87 100 04/10/20 09:55 04/10/20 16:16 04/10/20 16:16 04/10/20 16:16 04/10/20 16:16 Additional findings Additional findings: General - No acute distress Eyes - no conjunctiva injection ENT no rhinorrhea, no noticeable or palpable swelling Neck no JVD, no thyromegaly Respiratory: Lungs - diminshed BS, no use of accessary muscles. Cardiovascular -irregular irregular, no m/r/g, GI - Normal bowel sounds, no distended, soft. Extremeties - No edema, cyanosis or clubbing Hemo/lymphatic/immune no lymphadenopathy Neurological confusion Psychiatry confusion DATA Data Completed and Pending Labs: Labs from last 24 hours 04/10/20 04/10/20 04/10/20 10:20 10:08 10:08 WBC RBC Hgb Hct MCV MCH MCHC RDW Plt Count MPV Neut % (Auto) Lymph % (Auto) [place] % (Auto) Eos % (Auto) Baso % (Auto) Lymph # (Auto) [place] # (Auto) Eos # (Auto) Baso # (Auto) Absolute Neutrophils VBG Lactic Acid 1.0 Sodium 148 H Potassium 3.5 Chloride 118 H Carbon Dioxide 7 L* Anion Gap 23.0 H BUN 159 H* Creatinine 4.4 H GFR Calculation 12 Glucose 138 H Calcium 9.1 Magnesium 2.6 H Total Bilirubin 0.5 AST 23 ALT 13 Alkaline Phosphatase 133 H Troponin T 0.08 H* C-Reactive Protein 0.50 NT-Pro-B Natriuret Pep 19841.0 H Total Protein 7.1 Albumin 4.1 Globulin 3.0 Albumin/Globulin Ratio 1.4 TSH 1.44 04/10/20 10:08 WBC 10.0 RBC 3.72 L Hgb 11.6 L Hct 35.1 L MCV 94.4 MCH 31.2 MCHC 33.0 RDW 16.0 H Plt Count 201 MPV 11.1 H Neut % (Auto) 79.2 H Lymph % (Auto) 7.6 L [place] % (Auto) 9.2 Eos % (Auto) 3.4 Baso % (Auto) 0.6 Lymph # (Auto) 0.76 L [place] # (Auto) 0.92 H Eos # (Auto) 0.34 Baso # (Auto) 0.06 Absolute Neutrophils 7.95 VBG Lactic Acid Sodium Potassium Chloride Carbon Dioxide Anion Gap BUN Creatinine GFR Calculation Glucose Calcium Magnesium Total Bilirubin AST ALT Alkaline Phosphatase Troponin T C-Reactive Protein NT-Pro-B Natriuret Pep Total Protein Albumin Globulin Albumin/Globulin Ratio TSH A/P Narrative A/P Narrative: Assessment: Acute on chronic metabolic acidosis, pH 7.17 Atrial fibrillation on Eliquis Diabetes mellitus type 2 with peripheral neuropathy Chronic combined systolic and diastolic CHF, NYHA class 2, BNP 99087 CKD stage G5/A3, stopped HD on 06/02/2019 due to intolerable hemodynamic effects Anemia due to stage 5 chronic kidney disease Pharyngeal dysphagia Hepatocellular carcinoma Cirrhosis CAD, s/p SD Hx of stroke, 20 mm remote infarc and 3-4 remote lacunar infarcts HTN Hypernatremia Elevation of troponin Hypoglycemia Plan: assistant shift supervisor and I explained patient's condition and discussed treatment options with Mary Cerda who stated that pt does not want to lead such a life. Mary would like to initiate comfort care now in the hospital. Give him only pain meds, ativan,etc and stop all other meds including bicarboniate which are not related to comfort care. She hope to discharge him to a facility where he can have comfort care/hospital care. Ativan 0.5 mg IV every 2 to 4 hours as needed Morphine 2 mg IV every 2 hours as needed Zofran 4 mg will IV every 4 to 6 hours as needed Scopolamine patch 1 patch topical q. 72 Time Spent With Patient Time: Total time spent is greater than 50% in coordination of care (as documented) at patient's floor/unit and/or counseling patient: QUALITY Stroke Symptom Onset Unknown: Yes
[2020-04-10] MEDS ORDERED: SCOPOLAMINE 1 PATCH PATCH TOPICAL SCH (16:30)
[2020-04-10] MEDS: LORazepam 2 MG/ML VIAL IV PRN (18:07)
[2020-04-10] MEDS: morphine 4 MG/ML VIAL IV PRN (22:55)
[2020-04-11] MEDS: morphine 4 MG/ML VIAL IV PRN ×2 (02:45→08:31)
[2020-04-11] MEDS: LORazepam 2 MG/ML VIAL IV PRN ×4 (02:45→23:17)
--- NOTE | 2020-04-11 17:29 | Internal Med Progress Note ---
SUBJECTIVE Subjective Patient information: Note initiated : 04/11/20 at 5:26 pm Service Date, if different from initiated Date: [] Patient: Carlton Cerda 74 y/o M admitted on 04/10/20 for failure to thrive. Chief Complaint: [] Mr. Cerda is a 74 year old M with a past medical history of atrial fibrillation with all Eliquis, diabetes type 2, chronic combined systolic and diastolic CHF, CKD stage G5 A3, dysphagia, liver cancer, liver cirrhosis, CAD status post myocardial infarction, history of stroke, hypertension, and hypoglycemia who was brought to the ER due to generalized weakness and confusion. Patient is confused today and cannot give meaningful history. Over the past weeks patient has been sick. His blood sugar has been low at times. Patient was on dialysis but he stopped dialysis due to intolerance. In the ER, he was found to have will severe metabolic acidosis, pH 7.17. Film Recordist Dr. Mirza saw pt. Dr. Mirza did not feel he is a candidate for HD. 04/11 When I saw this patient this morning, he was sleeping. He looks comfortable. As per Dr. Cho, we can give him bicarbinate drip to prolong life. I called his Mary ([phone]) and discussed the bicarbinate drip treatment in details. Initially Mary worried that the treatment could make more complicated. If we prolong his life, we would make him suffer more. I explained to her. Our goal is to keep him as comfortable as possible. The priority is to keep him comfortable. Top on that, we will try to give him bicarbonate to prolong his life. Mary agreed with the bicarbonate treatment. Discussed with Dr. Cho, will give pt bicarbonate 100mEq + D5w 1000ml 100ml/hr x 2L. Stop when pt wakes up. Review of Systems ROS unobtainable: due to mental status Constitutional Vitals: Vital Signs Temp Pulse Resp BP Pulse Ox 97.9 F 108 H 22 127/76 99 04/11/20 07:33 04/11/20 07:33 04/11/20 07:33 04/11/20 07:33 04/11/20 07:33 Period Temp Pulse Resp BP Sys/Matute Pulse Ox Last 24 Hr 97.2 F-97.9 F 89-108 20-24 127-156/76-88 99-100 Intake and Output 04/11/20 04/11/20 04/11/20 05:59 13:59 21:59 Output Total 875 Balance -875 Intake & Output: Intake & Output 04/11/20 04/11/20 04/11/20 05:59 13:59 21:59 Output Total 875 Balance -875 Output: Urine Catheter Amount 875 Other: Urine Appearance Clear Clear Uretheral (Medel) Clear Urine Color Blood Tinged Bright Yellow Uretheral (Medel) Bright Yellow Urine Odor Strong Additional findings Additional findings: General - sleeping No acute distress Eyes - no conjunctiva injection ENT no rhinorrhea, no noticeable or palpable swelling Neck no JVD, no thyromegaly Respiratory: Lungs - diminshed BS, no use of accessary muscles. Cardiovascular -irregular irregular, no m/r/g, GI - Normal bowel sounds, no distended, soft. Extremeties - No edema, cyanosis or clubbing Hemo/lymphatic/immune no lymphadenopathy Neurological sleeping Psychiatry sleeping OBJ DATA Labs CBC & Chem 7: 04/10/20 10:08 04/10/20 10:08 Labs: Abnormal Lab Results 04/10/20 04/10/20 04/10/20 10:08 10:08 10:08 RBC 3.72 L Hgb 11.6 L Hct 35.1 L RDW 16.0 H MPV 11.1 H Neut % (Auto) 79.2 H Lymph % (Auto) 7.6 L Lymph # (Auto) 0.76 L [place] # (Auto) 0.92 H Sodium 148 H Chloride 118 H Carbon Dioxide 7 L* Anion Gap 23.0 H BUN 159 H* Creatinine 4.4 H Glucose 138 H Magnesium 2.6 H Alkaline Phosphatase 133 H Troponin T 0.08 H* NT-Pro-B Natriuret Pep 93096.0 H Meds: Medications Lorazepam (Ativan) 0.5 mg IV Q2-4HP PRN PRN Reason: ANXIETY/SEDATION Last Admin: 04/11/20 08:29 Dose: 0.5 mg Documented by: Morphine Sulfate (Morphine) 4 mg IV Q2HP PRN; Protocol PRN Reason: Per Pain Protocol Last Admin: 04/11/20 08:31 Dose: 4 mg Documented by: Ondansetron HCl (Zofran) 4 mg IV Q4-6HP PRN PRN Reason: Nausea And Vomiting Scopolamine (Transderm-Scop) 1 patch TOPICAL Q72H JULIA A/P Narrative A/P Narrative: Acute on chronic metabolic acidosis, pH 7.17 Atrial fibrillation on Eliquis Diabetes mellitus type 2 with peripheral neuropathy Chronic combined systolic and diastolic CHF, NYHA class 2, BNP 07668 CKD stage G5/A3, stopped HD on 06/02/2019 due to intolerable hemodynamic effects Anemia due to stage 5 chronic kidney disease Pharyngeal dysphagia Hepatocellular carcinoma Cirrhosis CAD, s/p ND Hx of stroke, 20 mm remote infarc and 3-4 remote lacunar infarcts HTN Hypernatremia Elevation of troponin Hypoglycemia Plan: Continue comfort care only: Ativan 0.5 mg IV every 2 to 4 hours as needed Morphine 2 mg IV every 2 hours as needed Zofran 4 mg will IV every 4 to 6 hours as needed Scopolamine patch 1 patch topical q. 72 I called his Mary ([phone]) and discussed the bicarbinate drip treatment in details. Mary eventually agreed with the bicarbonate treatment. But she does not want to increase his suffering because his life is prolonged. I told her that our priority is to keep him comfortable. Top on that we will give him bicarbonate drip to prolong his life. She agreed to give him bicarbonate drip. Discussed with Dr. Cho, will give pt bicarbonate 100mEq + D5w 1000ml 100ml/hr x 2L. Stop when pt wakes up tomorrow. Time Spent With Patient Time: Total time spent is greater than 50% in coordination of care (as documented) at patient's floor/unit and/or counseling patient: QUALITY Stroke Symptom Onset Unknown: No VTE Deep Vein Thrombosis/Pulmonary Embolism Present on Admission: No
[2020-04-11] MEDS ORDERED: SODIUM BICARBONATE VIAL 100 MEQ in DEXTROSE 5% IN WATER 900 ML IV SCH ×3 (17:45→18:00)
[2020-04-11] MEDS ORDERED: SODIUM BICARBONATE 50 MEQ/50 ML VIAL ONE (20:55)
[2020-04-12] MEDS: LORazepam 2 MG/ML VIAL IV PRN ×2 (07:07→20:46)
[2020-04-12] MEDS: morphine 4 MG/ML VIAL IV PRN (09:19)
[2020-04-12] MEDS ORDERED: SODIUM BICARBONATE VIAL 100 MEQ in DEXTROSE 5% IN WATER 900 ML IV SCH (11:00)
--- NOTE | 2020-04-12 17:42 | Nephrology Progress Note ---
SUBJECTIVE Subjective Patient information: Note initiated : 04/12/20 at 5:22 pm Service Date, if different from initiated Date: [] Patient: Carlton Cerda 74 y/o M admitted on 04/10/20 for failure to thrive. Chief Complaint: [obtundation] Mr. Cerda was seen in the emergency department on 04/10/2020. As outlined in my note he had essentially no change in his renal function, the large increase in a metabolic acidosis for which he previously had a bicarb of 19 and was on twice a day bicarbonate supplement. Going through the work-up of an increased anion gap acidosis no clear-cut etiology could be found including normal lactate, no elevation in ketones, or worsening of his uremia, no intake of ethanol methanol or ethylene glycol. As he was obtunded and exhibited Kussmaul respiration, he was admitted for comfort care which seems reasonable given his multitude of comorbidities i ncluding atrial fibrillation with calcific mitral stenosis, desire not to be dialyzed which have been made apparent months ago and confirmed on subsequent clinic follow-up, a hepatic carcinoma that has been treated with I believe localized radioactive bead embolization with radiographic improvement, history of a sending cholangitis with acute renal failure and a creatinine peaking at 8 mg/dL and treated conservatively with IV antibiotics, diabetes with peripheral vascular disease. Diabetic retinopathy and plans were forthcoming for a procedure on his eyes and attempt to salvage his worsening vision. This was to be completed today and I given prior approval with orders to avoid any nonsteroidal anti-inflammatory. It became apparent when I saw the patient in the emergency room is that he has been started on acetazolamide orally and this may well be the cause of his worsening metabolic acidosis. The ER had called me in I had instructed them to initiate a bicarbonate infusion but in the interim he was made comfort care only until last night when the on-call hospitalist asked me about bicarbonate for this patient. Said if you wanted to try it you can give him D5W with 100 mEq/L of bicarbonate x2 L over 20 hours. Thinking was there be clinical improvement if reversing his acidosis improved not only his respiration but his mental status. All this was discussed with his last evening by phone. Today when I rounded on lary he was certainly improved in terms of respiration and was no longer exhibiting Kussmaul type respiratory efforts, he remained obtunded and barely responsive to noxious stimuli. At that point added nothing more to offer until his pH tonight asking if we were going to recheck his blood work. All that had not been my intent of gone ahead and ordered a renal function panel. I guess if he is still acidotic and he is not volume overloaded we could give more bicarbonate to see what happens. However at this point he has had prolonged acidosis and its not clear with cardiovascular or [employer] effects may have occurred. Constitutional Vitals: Vital Signs Temp Pulse Resp BP Pulse Ox 36.7 C 128 H 32 H 124/89 86 L 04/12/20 04:18 04/12/20 06:54 04/12/20 06:54 04/12/20 06:54 04/12/20 06:54 Period Temp Pulse Resp BP Sys/Matute Pulse Ox Last 24 Hr 36.4 C-36.9 C 128-143 12-32 107-136/60-89 86-99 Intake and Output 04/12/20 04/12/20 04/12/20 05:59 13:59 21:59 Output Total 300 Balance -300 Intake & Output: Intake & Output 04/12/20 04/12/20 04/12/20 05:59 13:59 21:59 Output Total 300 Balance -300 Output: Urine Catheter Amount 300 Other: Urine Appearance Sediment Urine Color Dark Yellow General appearance: average body habitus and mild distress Exam: Obtunded Barely reactive to noxious stimuli at 8 AM rounds Head Head exam: Present atraumatic and normocephalic Eye Eye exam: Present EOMI Pupils: Present PERRL ENT ENT exam: Present mucous membranes dry Neck Neck exam: Present normal inspection; Absent meningismus Respiratory Respiratory exam: Present prolonged expiratory phase; Absent rales, rhonchi, stridor and wheezes Cardiovascular Cardiovascular exam: Present irregular rhythm, +S1, +S2 and systolic murmur; Absent JVD GI/Abdominal GI/Abdominal exam: Present soft and diminished bowel sounds; Absent bruit and rebound Rectal Rectal exam: Present deferred Neurological Exam Neurological exam: Present abnormal gait (Nonambulatory), altered, motor sensory deficit (Barely withdraws to pain) and reflexes normal (Diminished); Absent normal gait and oriented X3 Psychiatric Additional comments: Cannot evaluate Skin Skin exam: Present dry Additional comments: Scattered ecchymoses A/P Assessment and plan (1) Adverse effect of carbonic-anhydrase inhibitors, benzothiadiazides and other diuretics, initial encounter: Status: Acute Comment: Diamox started after recent eye surgery has lead to acute worsening of metabolic acidosis (2) CKD stage G5/A3, GFR <15 and albumin creatinine ratio >300 mg/g: Status: Chronic Comment: Slow progression till 04/2019 when cholecystitis and ARF. Peak SCr 8, 2 weeks HD but could not tolerate. Stopped HD 06/02/2019 and conservative Tx thereafter, "baseline SCr was 4.5 mg/dl" Heavy proteinuria and well-controlled hemoglobin A1 C's make me think that this is not diabetic nephropathy but perhaps related to congestive heart failure or any of the other age related diseases such as a monoclonal related process, membranous as he has had prior adenocarcinoma of his liver or FSGN. We will treat conservatively he has not tolerated RAASI in the past due to hyperkalemia, so using diltiazem for its anti-proteinuric effects and for rate control with A. fib (3) Mitral valve stenosis and regurgitation: Status: Chronic Comment: Metoprolol, diltiazem, apixaban. Wth mild on resting ECHO, significant on HD with rapid AFIb leading to (4) Chronic combined systolic and diastolic CHF, NYHA class 2: Status: Chronic Comment: Combination ASCAD, HTN and Valvular heart disease. A fib with RVR (Like with HD) caused acute decompensation and resulted in patients informed choice to forgo further dialysis treatments (5) Atrial fibrillation with normal ventricular rate: Status: Chronic Comment: Metoprolol and diltiazem for rate control, apixaban adjusted for renal function Narrative A/P Narrative: * Stop Diamox - done * Continue sodium bicarb drip until bicarb is between 15 and 20 * Recheck labs now to decide on further bicarb * Patient and have in the past stated in no uncertain terms that he should never be placed on dialysis again - this wish trumps all other therapy. Time Spent With Patient Time: Total time spent is greater than 50% in coordination of care (as documented) at patient's floor/unit and/or counseling patient:
[2020-04-12 19:27] LABS: Albumin 3.7 gm/dL (3.2-5.2); Blood Urea Nitrogen 152 mg/dL (8-23); Calcium 8.9 mg/dL (8.6-10.4); Carbon Dioxide 13 mmol/L (22-30); Chloride 123 mmol/L (96-108); Glomerular Filtration Rate 10; Glucose 180 mg/dL (70-105); Phosphorous 6.7 mg/dL (2.5-4.5)
--- NOTE | 2020-04-12 21:05 | Internal Med Progress Note ---
SUBJECTIVE Subjective Patient information: Note initiated : 04/12/20 at 9:00 pm Service Date, if different from initiated Date: [] Patient: Carlton Cerda 74 y/o M admitted on 04/10/20 for failure to thrive. Chief Complaint: [] Mr. Cerda is a 74 year old M with a past medical history of atrial fibrillation with all Eliquis, diabetes type 2, chronic combined systolic and diastolic CHF, CKD stage G5 A3, dysphagia, liver cancer, liver cirrhosis, CAD status post myocardial infarction, history of stroke, hypertension, and hypoglycemia who was brought to the ER due to generalized weakness and confusion. Patient is confused today and cannot give meaningful history. Over the past weeks patient has been sick. His blood sugar has been low at times. Patient was on dialysis but he stopped dialysis due to intolerance. In the ER, he was found to have will severe metabolic acidosis, pH 7.17. [facility]igz[facility] Dr. Mirza saw pt. Dr. Mirza did not feel he is a candidate for HD. 04/11 When I saw this patient this morning, he was sleeping. He looks comfortable. As per Dr. Cho, we can give him bicarbinate drip to prolong life. I called his Mary ([phone]) and discussed the bicarbinate drip treatment in details. Initially Mary worried that the treatment could make more complicated. If we prolong his life, we would make him suffer more. I explained to her. Our goal is to keep him as comfortable as possible. The priority is to keep him comfortable. Top on that, we will try to give him bicarbonate to prolong his life. Mary agreed with the bicarbonate treatment. Discussed with Dr. Cho, will give pt bicarbonate 100mEq + D5w 1000ml 100ml/hr x 2L. Stop when pt wakes up. 04/12 Pt was sleeping when I saw him. He seemed to be comfortable. Based on my conversation with his who would like to continue comfort care. also agreed with bicarbonate drip which Dr. Cho suggested. Review of Systems ROS unobtainable: due to mental status Constitutional Vitals: Vital Signs Temp Pulse Resp BP Pulse Ox 97.1 F 92 H 16 144/62 97 04/12/20 19:47 04/12/20 19:47 04/12/20 19:47 04/12/20 19:47 04/12/20 19:47 Period Temp Pulse Resp BP Sys/Matute Pulse Ox Last 24 Hr 97.1 F-98.0 F 92-143 12-32 116-144/62-89 86-99 Intake and Output 04/12/20 04/12/20 04/12/20 05:59 13:59 21:59 Output Total 300 350 Balance -300 -350 Weight 102.058 kg Patient Weight 04/13/20 05:59 Weight 102.058 kg Intake & Output: Intake & Output 04/12/20 04/12/20 04/12/20 05:59 13:59 21:59 Output Total 300 350 Balance -300 -350 Weight 102.058 kg Output: Urine Catheter Amount 300 350 Other: Urine Appearance Sediment Urine Color Dark Yellow Additional findings Additional findings: General - sleeping No acute distress Eyes - no conjunctiva injection ENT no rhinorrhea, no noticeable or palpable swelling Neck no JVD, no thyromegaly Respiratory: Lungs - diminshed BS, no use of accessary muscles. Cardiovascular -irregular irregular, no m/r/g, GI - Normal bowel sounds, no distended, soft. Extremeties - No edema, cyanosis or clubbing Hemo/lymphatic/immune no lymphadenopathy Neurological sleeping Psychiatry sleeping OBJ DATA Labs CBC & Chem 7: 04/10/20 10:08 04/12/20 17:55 Labs: Abnormal Lab Results 04/12/20 04/10/20 04/10/20 17:55 10:08 10:08 RBC Hgb Hct RDW MPV Neut % (Auto) Lymph % (Auto) Lymph # (Auto) [place] # (Auto) Sodium 155 H 148 H Potassium 3.1 L Chloride 123 H 118 H Carbon Dioxide 13 L 7 L* Anion Gap 19.0 H 23.0 H BUN 152 H* 159 H* Creatinine 5.4 H* 4.4 H Glucose 180 H 138 H Phosphorus 6.7 H* Magnesium 2.6 H Alkaline Phosphatase 133 H Troponin T 0.08 H* NT-Pro-B Natriuret Pep 62643.0 H 04/10/20 10:08 RBC 3.72 L Hgb 11.6 L Hct 35.1 L RDW 16.0 H MPV 11.1 H Neut % (Auto) 79.2 H Lymph % (Auto) 7.6 L Lymph # (Auto) 0.76 L [place] # (Auto) 0.92 H Sodium Potassium Chloride Carbon Dioxide Anion Gap BUN Creatinine Glucose Phosphorus Magnesium Alkaline Phosphatase Troponin T NT-Pro-B Natriuret Pep Meds: Medications Lorazepam (Ativan) 0.5 mg IV Q2-4HP PRN PRN Reason: ANXIETY/SEDATION Last Admin: 04/12/20 20:46 Dose: 0.5 mg Documented by: Morphine Sulfate (Morphine) 4 mg IV Q2HP PRN; Protocol PRN Reason: Per Pain Protocol Last Admin: 04/12/20 09:19 Dose: 4 mg Documented by: Ondansetron HCl (Zofran) 4 mg IV Q4-6HP PRN PRN Reason: Nausea And Vomiting Scopolamine (Transderm-Scop) 1 patch TOPICAL Q72H JULIA A/P Narrative A/P Narrative: Acute on chronic metabolic acidosis, pH 7.17 Atrial fibrillation on Eliquis 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 [address] Cho is on board: Discussed with who agreed with bicarbonate 100mEq + D5w 1000ml 100ml/hr Time Spent With Patient Time: Total time spent is greater than 50% in coordination of care (as documented) at patient's floor/unit and/or counseling patient: QUALITY Stroke Symptom Onset Unknown: No VTE Deep Vein Thrombosis/Pulmonary Embolism Present on Admission: No
--- NOTE | 2020-04-13 07:42 | Death Note ---
Discharge Sum: Prov Provider Patient information: Note initiated : 04/13/20 at 7:39 am Service Date, if different from initiated Date: [] Patient: Carlton Cerda 74 y/o M admitted on 04/10/20 for failure to thrive. Chief Complaint: Failure to thrive Cause of End-stage renal disease Advanced heart failure Time of 2: 05 AM Primary care physician: Laura Walton Consults: 04/10/20 Consult to Physician [CONS] Stat Comment: Consulting Provider: Florentino Guerrier Reason For Exam: Physician to Consult Discharge Sum: Diag Contributing Factors (1) Adverse effect of carbonic-anhydrase inhibitors, benzothiadiazides and other diuretics, initial encounter: (2) CKD stage G5/A3, GFR <15 and albumin creatinine ratio >300 mg/g: (3) Mitral valve stenosis and regurgitation: (4) Chronic combined systolic and diastolic CHF, NYHA class 2: (5) Atrial fibrillation with normal ventricular rate: Discharge Sum: Summary Date and Time Date of admission: 04/10/20 17:10 Additional Data Attending physician: Florentino Guerrier
[2020-04-13] MEDS ORDERED: SCOPOLAMINE 1 PATCH PATCH TOPICAL SCH (16:30)
== END 2020-04-13 07:30 | disposition expired | DRG 291 ==
LOC: ED 09:45 → MEDSUR 17:10 → ICU 04-11 23:13
PROVIDERS: ADMIT Internal Medicine; ATTEND Internal Medicine